=== PATIENT | female | born 1955 | race Caucasian/White ===

== ENCOUNTER 2018-09-17 06:44 | Inpatient (IN) ==
--- NOTE | 2018-09-17 07:57 | PROVIDER DOCUMENTATION ---
HPI-Respiratory General - General Chief Complaint: Shortness of Breath Stated Complaint: difficulty breathing Time Seen by Provider: 09/17/18 07:20 Source: patient Allergies/Adverse Reactions: Patient Allergies Allergy/AdvReac Type Severity Reaction Status Date / Time amoxicillin trihydrate * Allergy Intermediate RASH Verified 08/23/15 15:45 [From Augmentin] potassium clavulanate * Allergy Intermediate RASH Verified 08/23/15 15:45 [From Augmentin] nitrofurantoin Allergy ITCHING Verified 08/23/15 15:45 [From Macrobid] nitrofurantoin Allergy ITCHING Verified 08/23/15 15:45 macrocrystalline * [From Macrobid] oxybutynin Allergy rash in Verified 08/23/15 15:45 mouth Home Medications: Home Medication List Medication Instructions Recorded Confirmed Last Taken Type Citalopram [Celexa] 20 mg PO DAILY 09/16/13 09/17/18 05/14/15 History Lipase/Protease/Amylase [Creon] 48,000 units PO AC 01/28/15 09/17/18 05/14/15 History Alendronate [Fosamax] 70 mg PO Q7D 09/17/18 09/17/18 Unknown History Amitriptyline HCl 25 mg PO QHS 09/17/18 09/17/18 Unknown History Baclofen 10 mg PO Q8H PRN 09/17/18 09/17/18 Unknown History Fluticasone 50 Mcg Nasal [place] 2 spray INTRANASAL DAILY 09/17/18 09/17/18 Unknown History [Flonase] Gabapentin 400 mg PO BID 09/17/18 09/17/18 Unknown History Lipase/Protease/Amylase [Creon] 72,000 units PO TID CC 09/17/18 09/17/18 Unknown History Oxycodone HCl/Acetaminophen 5 - 325 mg PO Q12H PRN 09/17/18 09/17/18 Unknown History [Oxycodone-Acetaminophen 5-325] - History of Present Illness-Resp Nature of Presenting Problem: Presents to the with multiple vague complaints. Her primary complaint this morning is her SOB and difficulty breathing. She states that this has been going on for about 1 week and she has been in the ER multiple times for similar complaints. she is still ane very day smoker and has been trying to use her albuterol treatments every 3-4 hours but it is not helping. She states that she cannot even walk across the room without getting SOB. She denies any cough, fever or chills. She takes oxygen at home 3L [place] at night only but recently has been having to use her O2 all the time. She additionally has other vague complaints including chronic lower back pain and muscle spasms and states that she was also seen in the ER for her "bladder giving out" but she did not elaborate on this. Severity in ED: reports: moderate Onset/Duration: reports: 1 week ago Timing: reports: still present Cough Quality/Degree: reports: no cough Episode Frequency: chronic episodes Current Respiratory Medication Therapy: Initiated see nurses note, Initiated albuterol Modifying Factors: improves with: exertion Associated Symptoms: reports: shortness of breath. denies: fever/chills Similar Symptoms Previously?: Yes Recently seen or treated by another doctor?: Yes Review of Systems - Adult - REVIEW OF SYSTEMS - ADULT Constitutional: reports: no symptoms reported. denies: chills, fever Eyes: reports: no symptoms reported Ears, Nose, Mouth & Throat: reports: no symptoms reported Cardiovascular: reports: no symptoms reported Respiratory: reports: see HPI, dyspnea on exertion, shortness of breath Gastrointestinal: reports: no symptoms reported Genitourinary: reports: no symptoms reported Musculoskeletal: reports: back pain Integumentary: reports: no symptoms reported Neurological: reports: no symptoms reported Psychiatric: reports: no symptoms reported Endocrine: reports: no symptoms reported Hematologic/Lymphatic: reports: no symptoms reported Allergic/Immunologic: reports: no symptoms reported All Other Systems: Reviewed and Negative Past History - Adult - PAST MEDICAL HISTORY-ADULT Review of Records: reports: Old Records Reviewed, Nursing Assessment Review, Medications Reviewed Cardiovascular: reports: HTN Respiratory: reports: asthma, COPD Musculoskeletal: reports: chronic pain Endocrine/Immune: reports: thyroid disorder - PRIOR SURGERIES/PROCEDURES Surgical/Procedure History: reports: hernia repair, back/neck - IMMUNIZATION STATUS Childhood Immunizations: See Nurse Assessment Flu Vaccine: See Nurse Assessment Physical Exam-General - PHYSICAL EXAM-ADULT Initial Vital Signs Reviewed: Yes - CONSTITUTIONAL General Appearance: alert, no apparent distress, cachetic - EYES Eyes: PERRL/EOMI - HEAD, EARS, NOSE, MOUTH & THROAT HENMT: normocephalic/atraumatic - NECK Neck: non-tender, full range of motion - RESPIRATORY Respiratory: decreased breath sounds (moderate throughout), accessory muscle use (mild), wheezing (scant diffuse) - CARDIOVASCULAR Cardiovascular: normal peripheral pulses, regular rate, rhythm - GASTROINTESTINAL (ABDOMEN) Abdominal Exam: normal bowel sounds, non tender, soft - LYMPHATIC Lymphatic: no adenopathy - MUSCULOSKELETAL Back Exam: normal inspection, no CVA tenderness, no vertebral tenderness, kyphosis Extremity: normal inspection - SKIN Integumentary: warm/dry - NEUROLOGIC Neurologic: grossly normal - PSYCHIATRIC Psych/Mental Status: oriented x 3 Progress - PLAN OF CARE/RESULTS Progress/Plan/Lab Results: Laboratory Results - last 24 hr 09/17/18 08:23 Folate 13.9 Orders Category Date Time Status Admit - [facility] Routine AdmDCTranf 09/17/18 10:52 Active Activity - Up with Assistance ORDERED Care 09/17/18 10:52 Active Intake and Output-Strict ORDERED Care 09/17/18 10:52 Active Nursing- Assist w/ IS as order ORDERED Care 09/17/18 10:52 Active Saline Loc DIRECTED Care 09/17/18 10:52 Active Turn, Cough and Deep Breathe Q4HR.AWAKE Care 09/17/18 10:52 Active Vital Signs Order Q 4-HR ASSESS Care 09/17/18 10:52 Completed Z-Document. for Tele Applied ORDERED Care 09/17/18 10:52 Active CHEST-2 VIEWS [RAD] Stat Exams 09/17/18 08:00 Completed ABG [RESP] Routine Lab 09/17/18 08:16 Completed CBC WITH ELECTRONIC DIFF [HEME] Stat Lab 09/17/18 08:23 Completed COMPREHENSIVE METABOLIC PANEL [CHEM] Stat Lab 09/17/18 08:23 Completed PRO B-NATRIURETIC PEPTIDE Stat Lab 09/17/18 08:23 Completed UA NIMS W/REFLEX CULT PL [URINALYSIS] Stat Lab 09/17/18 08:35 Completed URINE CULTURE [RM] Routine Lab 09/17/18 09:[address] SCREEN [address] Stat Lab 09/17/18 08:17 Completed Albuterol 2.5MG/Ipratrop 0.5MG [Duoneb (A & A)] Med 09/17/18 08:00 Discontinued 9 ml INH NOW ONE Azithromycin 500 mg/Ns [Zithromax 500 mg/Ns] Med 09/17/18 10:30 Discontinued 500 mg in 250 ml IV Q24H Budesonide [Pulmicort] Med 09/17/18 08:00 Discontinued 0.5 mg INH NOW ONE CefTRIAXONE [Rocephin] 1 gm Med 09/17/18 10:00 Discontinued 0.9% Sodium Chloride Inj [Ns] 50 ml IV Q24H Hydroxyzine [Atarax] Med 09/17/18 09:06 Discontinued 25 mg PO NOW ONE Methylprednisolone Sod Succ [Solu-Medrol] Med 09/17/18 08:00 Discontinued 125 mg IV NOW ONE Potassium Chloride E.r. [Klor-Con] Med 09/17/18 09:07 Discontinued 60 meq PO NOW ONE Aerosol Treatments Routine Ot 09/17/18 08:01 Completed Aerosol Treatments Stat Ot 09/17/18 08:01 Completed Incentive Spirometer Q4HR.AWAKE Ot 09/17/18 13:00 Completed Incentive Spirometer Q4HR.AWAKE Ot 09/17/18 17:00 Completed Incentive Spirometer Q4HR.AWAKE Ot 09/17/18 21:00 Completed Incentive Spirometer Q4HR.AWAKE Ot 09/18/18 01:00 Completed Incentive Spirometer Q4HR.AWAKE Ot 09/18/18 05:00 Completed Incentive Spirometer Q4HR.AWAKE Ot 09/18/18 09:00 Completed Oxygen Device Routine Ot 09/17/18 10:52 Completed Peak Flow BID Oth 09/17/18 21:00 Completed Peak Flow BID Ot 09/18/18 09:00 Completed Telemetry [OM.EQ] Routine Oth 09/17/18 10:52 Active EKG [EKG] Routine Ther 09/17/18 Draft Transfer/Admit Order [TRANSFER] Routine Transfer 09/17/18 09:58 Completed Patient with frequent ER visits and poor lung sounds on exam. Given breathing treatments in the ED but would benefit for admission for COPD exacerbation. Spoke to Dr Verde who accepted patient for admission. Result Diagrams: 09/17/18 08:23 09/17/18 08:23 - EKG 1 Time of EKG reading by physician:: 07:24 EKG Read and Signed by:: Zabirna Rome EKG Interpretation (*Must complete 3 of following elements*): Abnormal Rate: 87 Rhythm: NSR QRS: other (artifact/baseline wander) ST Wave: non-specific ST changes Departure - Departure Date of Disposition Decision: 09/17/18 Time of Disposition Decision: 13:00 DIAGNOSIS: COPD, frequent exacerbations, Hypoxia Disposition: ADMITTED INPATIENT 09 Certified Medical Emergency: Emergent Condition: Fair - Critical Care Note This patient required my direct & personal management of CC.: Yes Total Time (mins): 35 Critical Care Statement: This patient required my direct personal management to treat or rule out processes, the absence of which, could potentiallly result in sudden, clinically significant life or limb threatening deterioration. Attestation - Physician/ FRANKIE Attestation Patient care was provided by Advanced Practice Provider:: No The physician spent face to face time with patient:: Yes Advanced Practice Provider documentation review:: Supervising physician onsite and consulted in the evaluation and care of this patient. The physician did have a face to face encounter with the patient.
[2018-09-17] MEDS ORDERED: PULMICORT INH ONE (08:00)
[2018-09-17] MEDS ORDERED: SOLU-MEDROL IV ONE (08:00)
[2018-09-17] MEDS ORDERED: DUONEB (A & A) INH ONE (08:00)
[2018-09-17 08:30] LABS: BE 9.3 mmoll (-3.0-3.0); BLOOD TYPE ARTERIAL; METHB 2.7 % (0.0-1.5); O2(CT) 15.2 mL/dL (15.0-23.0); PO2(98.6) 82 mmHg (60-100); SAMPLE BLOOD; SAO2 96.5 % (95.0-100.0); pH(98.6) 7.43 (7.35-7.45)
[2018-09-17 08:35] LABS: BASO# 0.02 X1000 (0.0-0.2); BASO% 0.3 % (0.0-0.8); HEMATOCRIT 40.6 % (37.0-47.0); HEMOGLOBIN 12.9 g/dL (12.0-16.0); IMM GRAN# 0.01 X1000 (0.0-0.04); IMM GRAN% 0.2 % (0.0-0.5); LYMPH# 1.16 X1000 (1.2-3.4); LYMPH% 18.1 % (20.5-51.1); MCH 30.9 PG (27-31); MCHC 31.8 g/dL (33-37); MCV 97.1 FL (81-99); MONO# 0.29 X1000 (0.11-0.59); MONO% 4.5 % (1.7-9.3); MPV 9.3 FL (7.4-10.4); NEUT# 4.94 X1000 (1.4-6.5); NEUT% 76.9 % (42.2-75.2); PLT 304 X1000 (130-400); RBC 4.18 XMIL (4.2-5.4); RDW 17.7 % (11.5-14.5); WBC 6.42 X1000 (4.8-10.8)
[2018-09-17 08:51] LABS: MODALITY CANNULA; O2HB 89.8 % (95.0-99.0); PCO2(98.6) 53 mmHg (35-45)
[2018-09-17 08:52] LABS: ALLEN TEST NO
[2018-09-17 08:54] LABS: URINE SOURCE CLEAN CATCH
--- NOTE | 2018-09-17 08:57 | Diag Imaging Result Doc PS360 ---
EXAM: CHEST-2 VIEWS HISTORY: COPD TECHNIQUE: PA and Lateral chest x-ray COMPARISON: 08/23/2015 FINDINGS: The cardiomediastinal silhouette is within normal limits. Significant progression of the pulmonary emphysema when compared with prior study. Scattered pulmonary calcifications most compatible with prior granulomatous disease are unchanged. The pulmonary vasculature is not congested. No infiltrate, effusion, or pneumothorax is appreciated. New posterior spinal fusion rods are noted in the right the lumbar spine. Unchanged screw plate fixation lower cervical spine. IMPRESSION: Interval progression of pulmonary emphysema. Electronically signed by Yuridia Bustillo 09/17/2018 8:55 AM
[2018-09-17 09:02] LABS: AGAP 14; ALBUMIN 4.5 g/dL (3.5-5.0); ALKALINE PHOSPHATASE 74 U/L (32-104); BUN 3 mg/dL (8-22); CALCIUM 8.7 mg/dL (8.8-10.2); CHLORIDE 97 mmol/L (98-107); COSMO 285; CREATININE 0.5 mg/dL (0.5-0.9); ESTIMATED GFR > 60; GLUCOSE 121 mg/dL (70-104); GOT 33 U/L (10-30); GPT 18 U/L (10-36); POTASSIUM 2.7 mmol/L (3.5-5.1); SODIUM 144 mmol/L (136-145); TCO2 34 mmol/L (25-35); TOTAL BILIRUBIN < 0.15 mg/dL (0.20-1.00); TOTAL PROTEIN 7.9 g/dL (6.3-8.3)
[2018-09-17] MEDS ORDERED: ATARAX PO ONE (09:06)
[2018-09-17] MEDS ORDERED: KLOR-CON PO ONE (09:07)
[2018-09-17 09:16] LABS: BILIRUBIN URINE 1+ (NEGATIVE); BLOOD URINE NEGATIVE (NEGATIVE); CLARITY CLEAR (CLEAR); COLOR AMBER; GLUCOSE URINE NEGATIVE (NEGATIVE); KETONE URINE TRACE mg/dL (NEGATIVE); LEUKOCYTES URINE 1+ (NEGATIVE); NITRITE URINE POSITIVE (NEGATIVE); PROTEIN URINE 2+(100 mg/dL) mg/dL (NEGATIVE); SP GRAVITY URINE 1.005; UROBILINOGEN URINE 4 mg/dL
--- NOTE | 2018-09-17 09:17 | EKG Report ---
Test Performed on : 09/17/2018 07:18:57 AM Test Reason : ER Blood Pressure : / mmHG Vent. Rate : 087 BPM Atrial Rate : 087 BPM P-R Int : 096 ms QRS Dur : 086 ms QT Int : 386 ms P-R-T Axes : 072 069 062 degrees QTc Int : 464 ms Sinus rhythm. with short OH Right atrial enlargement Nonspecific ST abnormality Abnormal ECG When compared with ECG of 23-AUG-2015 16:05, OH interval has decreased Nonspecific T wave abnormality no longer evident in Inferior leads Unconfirmed Result
[2018-09-17 09:18] LABS: URINE BACTERIA 3+ /HFP; URINE EPITHELIAL CELLS <10 /HPF (<10)
[2018-09-17 09:41] LABS: UR AMPHETAMINES QUAL NONE DETECTED (NONE DETECT); UR BARBITUATES QUAL NONE DETECTED (NONE DETECT); UR BENZODIAZEPIN QUAL NONE DETECTED (NONE DETECT); UR CANNABINOIDS QUAL NONE DETECTED (NONE DETECT); UR COCAINE QUAL NONE DETECTED (NONE DETECT); UR METHADONE QUAL NONE DETECTED (NONE DETECT); UR METHAMPHETAMINE QUAL NONE DETECTED (NONE DETECT); UR OPIATES QUAL NONE DETECTED (NONE DETECT); UR OXYCODONE QUAL PRESUMPTIVE POSITIVE (NONE DETECT); UR PCP QUAL NONE DETECTED (NONE DETECT); UR PROPOXYPHENE QUAL NONE DETECTED (NONE DETECT); UR TCA QUAL PRESUMPTIVE POSITIVE (NONE DETECT)
[2018-09-17] MEDS ORDERED: ROCEPHIN 1 GM in NS 50 ML IV SCH (10:00)
[2018-09-17] MEDS ORDERED: ZITHROMAX 500 MG/NS 500 MG/250 ML IVPB IV SCH ×2 (10:30→12:34)
[2018-09-17] MEDS ORDERED: XOPENEX NEB INH PRN (11:18)
[2018-09-17] MEDS ORDERED: TYLENOL PO PRN (11:18)
[2018-09-17] MEDS ORDERED: XOPENEX NEB INH SCH (11:30)
[2018-09-17] MEDS ORDERED: XOPENEX NEB ONE (11:31)
[2018-09-17] MEDS ORDERED: NS 1,000 ML IV ONE (11:41)
[2018-09-17] MEDS ORDERED: NICODERM PATCH TD SCH (11:45)
[2018-09-17] MEDS ORDERED: LOVENOX SUBQ SCH (12:00)
[2018-09-17 12:06] LABS: TSH 0.21 uIUmL (0.27-4.20)
[2018-09-17] MEDS ORDERED: ATARAX PO PRN (12:09)
--- NOTE | 2018-09-17 12:17 | HISTORY AND PHYSICAL ---
PRIMARY CARE PHYSICIAN: Dr. Rodríguez Verde CHIEF COMPLAINT: Dysuria and shortness of breath. HISTORY OF PRESENT ILLNESS: Ms. Mcnulty is a 63-year-old female with a history of emphysema requiring nocturnal oxygen, nicotine dependence, interstitial cystitis, bipolar disorder and chronic pain, who presents with progressive dysuria and bladder pain. Symptoms have been going on for more than a week and have been progressively worse. When she urinates, she has a "tightening." She denies any hematuria by gross visualization. She denies nausea, vomiting but does report some chills. She has also been having progressively worsening shortness of breath with cough. This has been made worse with exertion. She has had mainly a wet cough and nonproductive. She denies any overt chest pain, lower extremity edema or orthopnea. When she arrived to the ER, she had labs and diagnostics done. An ABG revealed a compensated respiratory acidosis with mild hypoxemia and mild elevation in methemoglobin. She was also noted to be mildly hypokalemic with evidence of urinary tract infection. As such, she is going to be admitted for COPD exacerbation as well as chronic and recurrent UTI. Of note, she was in the ER 2 days ago essentially for the same and was noted to have E. coli growing in her urine. PAST MEDICAL HISTORY: 1. Severe emphysema requiring nocturnal O2. 2. Interstitial cystitis. 3. Chronic pain related to neck and back pain. 4. Nicotine dependence. 5. Chronic pancreatitis. 6. Hypertension. 7. Gastroesophageal reflux disease. PAST SURGICAL HISTORY: She has had a hernia repair and neck surgery. SOCIAL HISTORY: She smokes a pack a day. Denies drug or alcohol use. FAMILY HISTORY: Noncontributory. HOME MEDICATIONS: Unknown at this time. List is being compiled by the nursing staff. REVIEW OF SYSTEMS: A 14-point review of systems was obtained and found to be negative with the exception of the HPI. ALLERGIES: Augmentin, Macrobid and oxybutynin. PHYSICAL EXAMINATION: VITAL SIGNS: Blood pressure is 142/81, heart rate 102, respiratory rate is 14, O2 saturation is 95% on nasal cannula 3 L. Temperature is 98.2. GENERAL: This is a chronically ill and disheveled appearing, bordering on cachectic, 63-year-old female lying in hospital bed in no acute distress. NEUROLOGICAL: She is awake and alert, follows commands without focal deficits. HEENT: Head is atraumatic and normocephalic. Pupils are equal, round and reactive to light. Oral mucosa is a bit dry. NECK: Trachea is midline. There is no JVD. CHEST: Diminished at the bases with mild wheezing in the expiratory and inspiratory phase. GASTROINTESTINAL: Soft, nondistended and nontender. Bowel sounds are hypoactive. EXTREMITIES: No edema. Pulses 1+ bilaterally. DIAGNOSTIC DATA: Chest x-ray shows interval progression of pulmonary emphysema. WBC is 6.42, hemoglobin 12.9, hematocrit 40.6, platelet count 304. ABG on nasal cannula shows pH of 7.43, CO2 of 53, O2 is 82, bicarb 32, oxyhemoglobin 89.8. Sodium is 144, potassium 2.7, chloride 97, CO2 is 34, anion gap is 14, BUN is 3, creatinine 0.5, glucose 121, calcium 8.7, AST is 33, alkaline phosphatase is 74, protein 7.9. UA shows 3+ bacteria with 10 to 20 WBCs and positive nitrites. Oxycodone is positive, and tricyclics are positive on the tox screen. ASSESSMENT AND PLAN: 1. Urinary tract infection. Likely E. coli, non ESBL, as she was here 2 days ago, and cultures did return positive. It is sensitive to Rocephin, so we will continue IV Rocephin and await culture data again. 2. Chronic obstructive pulmonary disease exacerbation. We will add IV steroids, add azithromycin to her antibiotic regimen. Breathing treatments. Aggressive pulmonary toilet. Recheck a chest x-ray and ABG in the morning. 3. Hypokalemia. We will check a magnesium and replace and follow electrolytes daily. 4. Chronic pain. We will need to get a list of her active medications and be judicious given her COPD exacerbation. 5. Nicotine dependence. We have advised the patient to quit smoking. Write a nicotine patch. Continue cessation education. 6. Acute on chronic hypercapnic and hypoxic respiratory failure. Please see number 2. We will continue pulmonary toilet, breathing treatments and monitor her progression. 7. DVT prophylaxis with Lovenox. Further recommendations to follow. Dictated by NASREEN Leon for Rodríguez Verde MD cc: NASREEN Leon MD
[2018-09-17] MEDS ORDERED: PERCOCET-5 PO PRN (13:09)
[2018-09-17] MEDS ORDERED: LIORESAL PO PRN (13:09)
[2018-09-17] MEDS: XOPENEX NEB INH SCH ×2 (14:51→19:29)
[2018-09-17] MEDS ORDERED: SOLU-MEDROL IV SCH (16:00)
[2018-09-17] MEDS ORDERED: CREON PO SCH ×2 (16:00→17:00)
[2018-09-17 16:08] VITALS: BP 134/62
--- NOTE | 2018-09-17 19:26 | HISTORY AND PHYSICAL ---
ADDENDUM: Patient seen and examined by myself. Full note was dictated and discussed with my nurse practitioner. Patient complains of dysuria and shortness of breath. She is wheezing on exam. We will admit her to the hospital and treat in the usual fashion for a COPD exacerbation. We will not use Urogesic Blue as the daughter told me last week that Ms. Mcnulty was in [facility] due to an overdose of Urogesic Blue. She stated that she had taken 40 or 50 of them. We will try Hytrin for her bladder spasms and we will follow. cc: Rodríguez Verde MD
[2018-09-17] MEDS ORDERED: HYTRIN PO SCH (21:00)
[2018-09-17] MEDS ORDERED: ELAVIL PO SCH (21:00)
[2018-09-17] MEDS ORDERED: MELATONIN PO SCH (21:00)
[2018-09-17] MEDS ORDERED: NEURONTIN PO SCH (21:00)
[2018-09-18] MEDS ORDERED: FOSAMAX PO SCH (07:00)
[2018-09-18] MEDS ORDERED: FLONASE NAS SCH (09:00)
[2018-09-18] MEDS ORDERED: ZITHROMAX PO SCH (09:00)
[2018-09-18] MEDS ORDERED: CELEXA PO SCH (09:00)
--- NOTE | 2018-09-19 05:55 | DISCHARGE SUMMARY ---
ADMISSION DATE: 09/17/2018 DISCHARGE DATE: 09/17/2018 HOSPITAL COURSE: The patient left AMA. She unfortunately created quite as scene screaming, yelling and wailing in the hospital, asking for Urogesic Blue. We certainly did not do this as the daughter had informed me earlier, a few days ago, when the was admitted that Ms. Mcnulty had just recently been in [facility] due to overdosing on Urogesic Blue. Interestingly, once she was told that she was not going to get Urogesic Blue she was able to sit down, she was quiet, and her very loud vocalizations stopped until the daughter arrived and then all these vocalizations reoccurred again. As noted the patient left AMA. She stated that she could not breathe although interestingly her vocalizations could be heard up and down the hallway without any difficulty, which certainly contradicts her assessment that she could not breathe. Due to this as well as recent events Ms. Mcnulty will be subsequently dismissed from our practice. cc: Rodríguez Verde MD
== END 2018-09-17 20:06 | disposition left against medical advice (07) | DRG 191 ==
LOC: P.ED 06:44 → P.MEDSURG 10:07
PROVIDERS: ADMIT Family Medicine
CPT/HCPCS: 71020; 71046; 74019; 74020; 80053; 80104; 80301; 80305; 81001; 82607; 82746; 82805; 83735; 83880; 84443; 85025; 87077; 87088; 87186; 93005; 94640; 94761; 94799; 99284; A9270; G0431; G0434; G0477; J0456; J0696; J1650; J2930; J7030

== ENCOUNTER 2018-09-19 20:16 | Inpatient (IN) ==
[2018-09-19 21:42] LABS: UR AMPHETAMINES QUAL NONE DETECTED (NONE DETECT); UR BARBITUATES QUAL NONE DETECTED (NONE DETECT); UR BENZODIAZEPIN QUAL NONE DETECTED (NONE DETECT); UR CANNABINOIDS QUAL NONE DETECTED (NONE DETECT); UR COCAINE QUAL NONE DETECTED (NONE DETECT); UR METHADONE QUAL NONE DETECTED (NONE DETECT); UR METHAMPHETAMINE QUAL NONE DETECTED (NONE DETECT); UR OPIATES QUAL NONE DETECTED (NONE DETECT); UR OXYCODONE QUAL NONE DETECTED (NONE DETECT); UR PCP QUAL NONE DETECTED (NONE DETECT); UR PROPOXYPHENE QUAL NONE DETECTED (NONE DETECT); UR TCA QUAL PRESUMPTIVE POSITIVE (NONE DETECT)
[2018-09-19 22:13] LABS: BASO# 0.02 X1000 (0.0-0.2); BASO% 0.1 % (0.0-0.8); EOS# 0.05 X1000 (0.0-0.7); EOS% 0.3 % (0.0-10.0); HEMOGLOBIN 14.4 g/dL (12.0-16.0); IMM GRAN# 0.05 X1000 (0.0-0.04); IMM GRAN% 0.3 % (0.0-0.5); LYMPH# 2.12 X1000 (1.2-3.4); LYMPH% 11.4 % (20.5-51.1); MCH 30.9 PG (27-31); MCV 96.6 FL (81-99); MONO% 5.4 % (1.7-9.3); NEUT# 15.32 X1000 (1.4-6.5); NEUT% 82.5 % (42.2-75.2); PLT 345 X1000 (130-400); RBC 4.66 XMIL (4.2-5.4); RDW 17.9 % (11.5-14.5); WBC 18.56 X1000 (4.8-10.8)
[2018-09-19 22:35] LABS: AGAP 18; ALBUMIN 4.6 g/dL (3.5-5.0); ALKALINE PHOSPHATASE 91 U/L (32-104); BUN 7 mg/dL (8-22); CALCIUM 9.7 mg/dL (8.8-10.2); CHLORIDE 97 mmol/L (98-107); COSMO 282; CREATININE 0.5 mg/dL (0.5-0.9); ESTIMATED GFR > 60; GLUCOSE 110 mg/dL (70-104); GOT 37 U/L (10-30); GPT 22 U/L (10-36); POTASSIUM 3.3 mmol/L (3.5-5.1); SODIUM 142 mmol/L (136-145); TCO2 27 mmol/L (25-35); TOTAL BILIRUBIN < 0.15 mg/dL (0.20-1.00); TOTAL PROTEIN 8.5 g/dL (6.3-8.3)
[2018-09-19] MEDS ORDERED: MORPHINE ONE (23:36)
[2018-09-19] MEDS ORDERED: MORPHINE IV ONE (23:39)
[2018-09-20] LABS: BILIRUBIN URINE NEGATIVE (NEGATIVE); BLOOD URINE TRACE (NEGATIVE); CLARITY CLEAR (CLEAR); COLOR YELLOW; GLUCOSE URINE NEGATIVE (NEGATIVE); KETONE URINE 1+(Small) mg/dL (NEGATIVE); LEUKOCYTES URINE NEGATIVE (NEGATIVE); NITRITE URINE NEGATIVE (NEGATIVE); PROTEIN URINE 1+(30 mg/dL) mg/dL (NEGATIVE); SP GRAVITY URINE 1.015; UROBILINOGEN URINE NORMAL
--- NOTE | 2018-09-20 00:04 | PROVIDER DOCUMENTATION ---
This chart was entered by Kimberlyn Donnelly Scribe, acting as scribe for Andrew Rosales CRNP. [id number] Abuse/Overdose - General Chief Complaint: Withdrawals Stated Complaint: OPIOIDS WITHDRAWL Time Seen by Provider: 09/19/18 21:00 Source: patient, family Allergies/Adverse Reactions: Allergies Allergy/AdvReac Type Severity Reaction Status Date / Time amoxicillin trihydrate * Allergy Intermediate RASH Verified 08/23/15 15:45 [From Augmentin] potassium clavulanate * Allergy Intermediate RASH Verified 08/23/15 15:45 [From Augmentin] nitrofurantoin Allergy ITCHING Verified 08/23/15 15:45 [From Macrobid] nitrofurantoin Allergy ITCHING Verified 08/23/15 15:45 macrocrystalline * [From Macrobid] oxybutynin Allergy rash in Verified 08/23/15 15:45 mouth Home Medications: Home Medication List Medication Instructions Recorded Confirmed Last Taken Type Citalopram [Celexa] 20 mg PO DAILY 09/16/13 09/17/18 05/14/15 History Lipase/Protease/Amylase [Creon] 48,000 units PO AC 01/28/15 09/17/18 05/14/15 History Alendronate [Fosamax] 70 mg PO Q7D 09/17/18 09/17/18 Unknown History Amitriptyline HCl 25 mg PO QHS 09/17/18 09/17/18 Unknown History Baclofen 10 mg PO Q8H PRN 09/17/18 09/17/18 Unknown History Fluticasone 50 Mcg Nasal [place] 2 spray INTRANASAL DAILY 09/17/18 09/17/18 Unknown History [Flonase] Gabapentin 400 mg PO BID 09/17/18 09/17/18 Unknown History Lipase/Protease/Amylase [Creon] 72,000 units PO TID CC 09/17/18 09/17/18 Unknown History Oxycodone HCl/Acetaminophen 5 - 325 mg PO Q12H PRN 09/17/18 09/17/18 Unknown History [Oxycodone-Acetaminophen 5-325] - History of Present Illness-Drug/Alcohol Nature of Presenting Problem: pt is a 63 yr old female presenting with family, pt reports she is a pain clinic pt and has been overtaking her prescribed Percocet, xanaflex and norflex. pt has hx of chronic bladder pain and reports she has been taking anything to attempt to control pain. pt also reports over use of Benadryl, AZO, Cystex and melatonin. pt also reports depression, anxiety. pt next appointment with pain clinic is 10/04 but she reports she is already out of prescribed medications and fears she has been fired for failing drug screen. pt reports she has been out of muscle relaxers and pain medication x 3 days. SHe also reports that she has been having increased SOB. This episode of drinking or use began:: gradual Psychiatric Complaints: reports: anxiety, depressed, insomnia, other (chronic pain). denies: suicidal ideation Associated Symptoms: reports: anxiety, genitourinary problems (chronic bladder pain), headaches, muscle aches Any injuries associated with this episode of intoxication?: No Similar Symptoms Previously?: Yes Recently seen or treated by another doctor?: Yes - Substance Abuse Substance Use: reports: benzodiazepines, opiates - Detox/Hospitalizations Previous detox/rehab admissions?: No Currently enrolled in a Methadone Program?: No Review of Systems - Adult - REVIEW OF SYSTEMS - ADULT Constitutional: reports: fatique, weight loss. denies: fever Eyes: reports: no symptoms reported Ears, Nose, Mouth & Throat: reports: no symptoms reported Cardiovascular: reports: no symptoms reported Respiratory: reports: cough, shortness of breath Gastrointestinal: reports: abdominal pain, nausea. denies: vomiting Genitourinary: reports: frequent UTI's, other (chronic bladder pain) Musculoskeletal: reports: back pain (chronic), muscle aches Integumentary: reports: no symptoms reported Neurological: reports: headache/migraines. denies: dizziness/vertigo, syncope Psychiatric: reports: anxiety, alcohol/drug dependence, depression, insomnia, panic attacks. denies: suicidal thoughts Endocrine: reports: no symptoms reported Hematologic/Lymphatic: reports: no symptoms reported Allergic/Immunologic: reports: no symptoms reported All Other Systems: Reviewed and Negative Past History - Adult - PAST MEDICAL HISTORY-ADULT Review of Records: reports: Old Records Reviewed, Nursing Assessment Review, Medications Reviewed, Social history reviewed & non-contributory. Major Childhood Illnesses: reports: denies history Cardiovascular: reports: HTN Respiratory: reports: asthma, COPD Gastrointestinal: reports: denies history Obstetrical/Gynecological: reports: denies history Genitourinary: reports: other (cystic bladder) Musculoskeletal: reports: chronic pain Neurological: reports: denies history Endocrine/Immune: reports: thyroid disorder Other Conditions: reports: denies history - PRIOR SURGERIES/PROCEDURES Surgical/Procedure History: reports: hernia repair, back/neck - IMMUNIZATION STATUS Childhood Immunizations: See Nurse Assessment Flu Vaccine: See Nurse Assessment - FAMILY HISTORY Family History: reviewed, not pertinent - SOCIAL HISTORY Smoking: cigarettes Substance Use: benzodiazepines, opiates Living Situation: family Physical Exam-General - PHYSICAL EXAM-ADULT Initial Vital Signs Reviewed: Yes - CONSTITUTIONAL General Appearance: alert, no apparent distress, thin, anxious - EYES Eyes: PERRL/EOMI - HEAD, EARS, NOSE, MOUTH & THROAT HENMT: normocephalic/atraumatic, moist mucous membranes, normal ENT inspection - NECK Neck: non-tender, full range of motion, supple, normal inspection - RESPIRATORY Respiratory: chest non-tender, accessory muscle use, rhonchi, increased rate - CARDIOVASCULAR Cardiovascular: normal peripheral pulses, regular rate, rhythm, no edema - GASTROINTESTINAL (ABDOMEN) Abdominal Exam: normal bowel sounds, non tender, soft - LYMPHATIC Lymphatic: no adenopathy - MUSCULOSKELETAL Back Exam: normal inspection, no CVA tenderness, no vertebral tenderness Extremity: normal range of motion, non-tender, normal gait, normal inspection - SKIN Integumentary: normal color, normal turgor, warm/dry - NEUROLOGIC Neurologic: grossly normal, no motor/sensory deficits - PSYCHIATRIC Psych/Mental Status: anxious Progress - PLAN OF CARE/RESULTS Progress/Plan/Lab Results: Vital Signs - 8 hr 09/19/18 20:24 09/19/18 21:08 09/19/18 22:13 Temperature 98.3 F Pulse Rate 102 H 93 H 95 H Respiratory Rate 18 23 18 Blood Pressure 154/87 116/77 164/106 O2 Sat by Pulse Oximetry 90 L 93 L 09/19/18 23:16 Temperature Pulse Rate 77 Respiratory Rate 18 Blood Pressure 136/73 O2 Sat by Pulse Oximetry 97 Laboratory Results - last 24 hr 09/19/18 09/19/18 09/19/18 20:54 20:54 20:59 WBC 18.56 H RBC 4.66 Hgb 14.4 Hct 45.0 MCV 96.6 MCH 30.9 MCHC 32.0 L RDW Std Deviation 17.9 H Plt Count 345 MPV 10.0 Immature Gran % (Auto) 0.3 Neut % (Auto) 82.5 H Lymph % (Auto) 11.4 L Ida % (Auto) 5.4 Eos % (Auto) 0.3 Baso % (Auto) 0.1 Immature Gran # (Auto) 0.05 H Neut # (Auto) 15.32 H Lymph # (Auto) 2.12 Ida # (Auto) 1.00 H Eos # (Auto) 0.05 Baso # (Auto) 0.02 Sodium 142 Potassium 3.3 L Chloride 97 L Carbon Dioxide 27 Anion Gap 18 BUN 7 L Creatinine 0.5 Estimated GFR/1.73 m2 > 60 BUN/Creatinine Ratio 14 Glucose 110 H Calculated Osmolality 282 Calcium 9.7 Total Bilirubin < 0.15 L AST 37 H ALT 22 Alkaline Phosphatase 91 Total Protein 8.5 H Albumin 4.6 Globulin 4.0 Albumin/Globulin Ratio 1.0 Urine Color Urine Clarity Urine pH Ur Specific [place] Urine Protein Urine Ketones Urine Blood Urine Nitrite Urine Bilirubin Urine Urobilinogen Urine WBC Urine Glucose Urine Opiates Screen NONE DETECTED Ur Oxycodone Screen NONE DETECTED Urine Methadone Screen NONE DETECTED U Propoxyphene Qual NONE DETECTED Ur Barbituates Screen NONE DETECTED Ur Tricyclics Screen PRESUMPTIVE POSITIVE A Ur Phencyclidine Scrn NONE DETECTED Ur Amphetamines Screen NONE DETECTED U Methamphetamines Scrn NONE DETECTED U Benzodiazepines Scrn NONE DETECTED Urine Cocaine Screen NONE DETECTED U Cannabinoids Screen NONE DETECTED 09/19/18 20:59 WBC RBC Hgb Hct MCV MCH MCHC RDW Std Deviation Plt Count MPV Immature Gran % (Auto) Neut % (Auto) Lymph % (Auto) Ida % (Auto) Eos % (Auto) Baso % (Auto) Immature Gran # (Auto) Neut # (Auto) Lymph # (Auto) Ida # (Auto) Eos # (Auto) Baso # (Auto) Sodium Potassium Chloride Carbon Dioxide Anion Gap BUN Creatinine Estimated GFR/1.73 m2 BUN/Creatinine Ratio Glucose Calculated Osmolality Calcium Total Bilirubin AST ALT Alkaline Phosphatase Total Protein Albumin Globulin Albumin/Globulin Ratio Urine Color YELLOW Urine Clarity CLEAR Urine pH 5.0 Ur Specific [place] 1.015 Urine Protein 1+(30 mg/dL) A Urine Ketones 1+(Small) A Urine Blood TRACE Urine Nitrite NEGATIVE Urine Bilirubin NEGATIVE Urine Urobilinogen NORMAL Urine WBC NEGATIVE Urine Glucose NEGATIVE Urine Opiates Screen Ur Oxycodone Screen Urine Methadone Screen U Propoxyphene Qual Ur Barbituates Screen Ur Tricyclics Screen Ur Phencyclidine Scrn Ur Amphetamines Screen U Methamphetamines Scrn U Benzodiazepines Scrn Urine Cocaine Screen U Cannabinoids Screen Orders Category Date Time Status CHEST-1 VIEW [RAD] Stat Exams 09/19/18 23:02 Taken CBC WITH ELECTRONIC DIFF [HEME] Stat Lab 09/19/18 20:54 Completed CMP [COMPREHENSIVE METABOLIC PANEL] [CHEM] Stat Lab 09/19/18 20:[address] W/POSS RFLX CULT [URINALYSIS] Stat Lab 09/19/18 20:59 Results URINE DRUG SCREEN [address] Stat Lab 09/19/18 20:59 [address]UG S[address]EN [address] Stat Lab 09/19/18 21:18 Ordered Morphine Med 09/19/18 23:36 Discontinued 4 mg .ROUTE .STK-MED ONE Morphine Med 09/19/18 23:39 Discontinued 4 mg IV NOW ONE Result Diagrams: 09/19/18 20:54 09/19/18 20:54 - CONSULTS/PCP/HOSPITALIST Notification #1 *Consult/PCP/Hospitalist*: Ammon Time Discussed: 00:01 Consult Disposition: Admit Departure - Departure Date of Disposition Decision: 09/20/18 Time of Disposition Decision: 00:01 DIAGNOSIS: COPD exacerbation, Opioid dependence with withdrawal Disposition: ADMITTED INPATIENT 09 Certified Medical Emergency: Emergent Condition: Stable Referrals and Follow-Ups: Rodríguez Verde MD [Primary Care Provider] - - Critical Care Note This patient required my direct & personal management of CC.: No Attestation - Physician/ FRANKIE Attestation Patient care was provided by Advanced Practice Provider:: Yes Advanced Practice Provider:: Andrew Rosales Advanced Practice Provider documentation review:: The Mid-level provider documentation, treatment plan and medical decision making was reviewed by the physician who agrees with all treatment and medical decision making by the [facility]. The physician spent face to face time with patient:: No Advanced Practice Provider documentation review:: Supervising physician onsite and consulted in the evaluation and care of this patient. The physician did not have a face to face encounter with the patient. This chart was documented by the indicated scribe, (Kimberlyn Donnelly Scribe) and accurately reflects the services I performed and decisions made by me, Andrew Rosales CRNP, as attested by the provider's signature.
[2018-09-20 00:08] LABS: URINE BACTERIA 2+ /HFP; URINE EPITHELIAL CELLS <10 /HPF (<10); URINE RBC <10 /HPF (<10); URINE SOURCE CATH; URINE WBC <10 /HPF (<10)
[2018-09-20] MEDS ORDERED: MOTRIN PO PRN (02:00)
[2018-09-20] MEDS ORDERED: ROBAXIN PO PRN (02:00)
[2018-09-20] MEDS ORDERED: NICODERM PATCH TD ONE (02:25)
[2018-09-20] MEDS: DUONEB (A & A) INH SCH ×2 (02:31→07:30)
[2018-09-20] MEDS: ATARAX PO PRN ×2 (02:42→08:16)
[2018-09-20] MEDS ORDERED: PNEUMOVAX 23 IM ONE (03:23)
[2018-09-20] MEDS ORDERED: LIORESAL PO PRN (06:37)
--- NOTE | 2018-09-20 07:53 | Diag Imaging Result Doc PS360 ---
CHEST-1 VIEW - 09/19/2018 INDICATION: cough COMPARISON: 09/17/2018 FINDINGS: Stable hyperexpanded lungs compatible with COPD. No focal infiltrates, pneumothorax, or pleural effusion. Heart size is normal. IMPRESSION: COPD. Electronically signed by Kanu Meeks 09/20/2018 7:50 AM
[2018-09-20] MEDS ORDERED: PERCOCET-5 PO ONE (08:13)
[2018-09-20] MEDS ORDERED: CELEXA PO SCH (09:00)
[2018-09-20 11:58] VITALS: BP 109/91
--- NOTE | 2018-09-20 18:21 | HISTORY AND PHYSICAL ---
CHIEF COMPLAINT: Opioid withdrawals. HISTORY OF PRESENT ILLNESS: Ms. Mcnulty is a 63-year-old female well known to our service. She was actually here yesterday morning. She was admitted for UTI and COPD exacerbation, and yesterday left against medical advice and was quite angry and agitated. She returned yesterday evening for opioid withdrawals and bladder pain. She consistently abuses any type of medication she can for relief of bladder pain. She uses Percocet, Zanaflex, Norflex, Benadryl, Azo, and Cystex in large amounts to try to relieve the pain, and she ran out of these medications and came to the ER for withdrawals. She has been anxious and shaky. Labs were done yesterday evening in the ER. She was noted to have mild leukocytosis. Otherwise unremarkable. This morning she is complaining of bladder pain, but no other real acute abnormalities. We did explain to her that she will need to follow up with Dr. Valderrama regarding her bladder pain, and that she is stable for discharge from a medical standpoint. She is actually quite adamant about going back home. When she was wheeled down to the patient discharge area this morning, she did complain of some shortness of breath, and she was found to have an O2 saturation of 84%. She does report that she is supposed to be on continuous oxygen but only has nocturnal oxygen. We were able to set her up with continuous portable O2, and her oxygen saturations have increased to normal levels, 94%, and she is now stable for discharge home. HOME MEDICATIONS/DISCHARGE MEDICATIONS: 1. Amitriptyline 25 mg at bedtime. 2. Baclofen 10 mg p.o. every 8 hours. 3. Celexa 20 mg daily. 4. Creon as directed. 5. Fluticasone nasal spray, 2 puffs in both nares daily. 6. Fosamax 70 mg as directed. 7. Neurontin 400 mg b.i.d. 8. Oxybutynin 15 mg daily. ALLERGIES: Augmentin, Macrobid, oxybutynin. REVIEW OF SYSTEMS: A 14-point review of systems was obtained and found to be negative with the exception of the HPI. PHYSICAL EXAMINATION: VITAL SIGNS: Blood pressure is 153/98, heart rate 90, respiratory rate 20, O2 saturation 100% on nasal cannula. Temperature is 97.9. GENERAL: Chronically ill, frail, disheveled-appearing 63-year-old female lying in the hospital bed in no acute distress. NEUROLOGIC: She is awake. She is oriented. Follows commands. HEENT: Head is atraumatic and normocephalic. Pupils are equal, round and reactive to light. Oral mucosa is moist. NECK: Trachea is midline. There is no JVD. CHEST: Diminished at the bases but clear to auscultation. CV: Regular rate and rhythm. S1 and S2 is noted. There are no murmurs. GI: Soft, nondistended, nontender. Bowel sounds active. EXTREMITIES: No edema. Pulses 1+ bilaterally. DIAGNOSTIC DATA: Chest x-ray: COPD. Nothing acute. WBCs 18.56, hemoglobin 14.4, hematocrit 45, platelet count 345. Sodium 142, potassium 3.3, chloride 97. CO2 is 27, anion gap 18, BUN 7, creatinine 0.5, glucose 110. Bilirubin less than 0.15, AST 37, ALT 22, alkaline phosphatase 91, protein 8.5, albumin 4.6. UA shows 2+ bacteria. Toxicology is positive for tricyclics. ASSESSMENT/PLAN: 1. Opioid withdrawal: The patient is clinically stable for discharge. There is no evidence of seizure or other major withdrawal symptoms. Will have her follow up with her pain clinic. We have advised her against the abuse of any prescription medications and that she should seek long-term help if needed. 2. Interstitial cystitis: Will have her continue her home medications and follow up with Dr. Valderrama. 3. Chronic obstructive pulmonary disease: Stable. We have added home O2, which she will go home with. 4. Nicotine dependence: We advised the patient against the use of cigarettes. Advised her to use outpatient nicotine patches. The patient verbalized understanding. 5. The patient is discharged home, to follow up with her pain doctor and Dr. Valderrama as directed. 6. Further recommendations to follow. Dictated by NASREEN Leon for Rodríguez Verde MD cc: NASREEN Leon MD
[2018-09-20] MEDS ORDERED: ELAVIL PO SCH (21:00)
--- NOTE | 2018-09-21 02:49 | HISTORY AND PHYSICAL ---
ADDENDUM: Patient seen and examined by myself. Full note dictated and discussed with nurse practitioner. The patient presented to the hospital again after leaving yesterday AMA. Her story changes extremely frequently. She apparently told the ER that she had been going to a pain clinic, has been overtaking her prescribed Percocet, Zanaflex and Norflex. Notes she has chronic bladder pain. She has been using Benadryl, Azo, Cystex and melatonin. However, to me she states that she only takes Percocet twice a day and that she no longer wants to drive to [place] to the pain clinic. The patient currently is in her baseline extremely poor pulmonary status without any changes. We will admit to the hospital for observation and we will follow. cc: Rodríguez Verde MD
--- NOTE | 2018-09-21 18:40 | DISCHARGE SUMMARY ---
ADMISSION DATE: 09/20/2018 DISCHARGE DATE: 09/20/2018 HOSPITAL COURSE: The patient was admitted earlier this morning. She again is demanding that she go home, states that she feels better, does not want to stay in the hospital. Denies any current complaints. Denies any shortness of breath, chest pain, palpitations. Does states that she has extreme bladder pain. In fact, at times she is heard wailing throughout the hallway. DISPOSITION: As patient is in her baseline chronic pain, baseline chronic COPD, baseline chronic bladder issues, we will discharge her home. We will not write her pain medication nor Azo or any bladder medication as she frequently abuses and overuses every substance that she has. She is extremely noncompliant. She does have oxygen at home but frequently refuses to wear it. Prior to discharge her oxygen level did drop into the mid 80s to upper 80s but as noted she has oxygen at home, and she is at her baseline respiratory status. The patient will be discharged home. She will follow up outpatient with Urology. As noted previously, the patient has been dismissed from my clinic due to her noncompliance and medication overusage. cc: Rodríguez Verde MD
== END 2018-09-20 13:52 | disposition home or self-care (01) | DRG 897 ==
LOC: P.ED 20:16 → P.MEDSURG 09-20 00:45
PROVIDERS: ATTEND Family Medicine
CPT/HCPCS: 51701; 71010; 71045; 80053; 80104; 80301; 80305; 81001; 85025; 87088; 94640; 94761; 96374; 99285; A9270; G0431; G0434; G0477; J2270; P9612

== ENCOUNTER 2018-10-29 09:39 | Inpatient (IN) ==
--- NOTE | 2018-10-29 10:45 | Diag Imaging Result Doc PS360 ---
EXAM: CHEST-1 VIEW HISTORY: fall TECHNIQUE: Chest two views COMPARISON: None. FINDINGS: The lungs are hyperexpanded. No contusion. No pneumothorax. The heart is not enlarged. The vessels are not distended. There are no infiltrates. No effusion identified. There are scattered granuloma. There has been surgery to the lower neck and back. IMPRESSION: No injury. Electronically signed by Layo Lugo 10/29/2018 10:43 AM
--- NOTE | 2018-10-29 10:46 | Diag Imaging Result Doc PS360 ---
EXAM: FEMUR 1 VIEW RIGHT HISTORY: fall TECHNIQUE: Right femur, two views COMPARISON: None. FINDINGS: There is a subcapital right femoral neck fracture. The femoral head remains in the acetabulum. The femoral shaft is rotated and superiorly placed. IMPRESSION: Right femoral neck fracture. Electronically signed by Layo Lugo 10/29/2018 10:44 AM
--- NOTE | 2018-10-29 10:57 | Diag Imaging Result Doc PS360 ---
EXAM: XRAY PELVIS W/HIP 2-3VW RT HISTORY: fall TECHNIQUE: Pelvis and right hip, two views COMPARISON: None. FINDINGS: There is a subcapital fracture to the right femoral head. The femoral head remains in the acetabulum although it is rotated. Femoral shaft is also rotated and superiorly placed. IMPRESSION: Right femoral neck fracture. Electronically signed by Layo Lugo 10/29/2018 10:55 AM
--- NOTE | 2018-10-29 11:28 | PROVIDER DOCUMENTATION ---
This chart was entered by Lucy Hendrickson Scribe, acting as scribe for Lona Oliveira MD. HPI-Musculoskeletal Pain/Inj - GENERAL Source: patient - HX OF PRESENT ILLNESS-MUSKULOSKELTAL Quality of Pain: reports: aching Severity in ED: mild Onset/Duration: 3 days ago Timing: still present Modifying Factors: worse with: movement Any recent injury?: Yes (fall) Locality of Occurance: Home Similar Symptoms Previously?: No Recently seen or treated by another doctor?: No - FALL INJURY Location of Pain/Injury: reports: back, lower extremity Pain Radiation: reports: no radiation Reason for Fall: reports: slipped Symptoms prior to fall:: reports: none Loss of Consciousness: no loss of consciousness Injury Associated Symptoms: reports: back/neck pain (low back), joint pain (R hip) - BACK & NECK PAIN/INJURY Back/Neck Pain Location: reports: paraspinous muscles (low back) Context / Method of Injury: reports: fall Associated Symptoms: reports: lower back pain History of Chronic Neck or Back Pain?: No - HIP/PELVIS PAIN/INJURY Hip Pain Location: reports: hip (R) Pain Radiation: reports: no radiation Context / Method of Injury: reports: fall Associated Symptoms: reports: lower back pain - LOWER EXTREMITY PAIN/INJURY Lower Extremities Pain: hip: right Context / Method of Injury: reports: fell Associated Symptoms: reports: lower back pain <Lona Oliveira - Last Filed: 10/29/18 11:27> <Antonino Ramírez - Last Filed: 10/29/18 13:02> - GENERAL Chief Complaint: Hip Pain Stated Complaint: leg and hip pain Time Seen by Provider: 10/29/18 09:46 - HX OF PRESENT ILLNESS-MUSKULOSKELTAL Nature of Presenting Problem: 63 y/o female presents to ED with worsening R hip pain and low back pain onset 3 days ago. Pt reports she slipped and fell on concrete 3 days ago. Pt states she has been using a walker since the fall, but she can no longer walk. Pt is alert and oriented. (Lona Oliveira) Review of Systems - Adult - REVIEW OF SYSTEMS - ADULT Constitutional: denies: chills, fever Eyes: reports: no symptoms reported Ears, Nose, Mouth & Throat: reports: no symptoms reported Cardiovascular: denies: chest pain, palpitations Respiratory: denies: cough, shortness of breath Gastrointestinal: denies: abdominal pain, diarrhea, nausea, vomiting Genitourinary: reports: no symptoms reported Musculoskeletal: reports: back pain (low), joint pain (R hip) Integumentary: reports: no symptoms reported Neurological: denies: dizziness/vertigo, seizure Psychiatric: reports: no symptoms reported Endocrine: reports: no symptoms reported Hematologic/Lymphatic: reports: no symptoms reported Allergic/Immunologic: reports: no symptoms reported All Other Systems: Reviewed and Negative <Lona Oliveira Maged - Last Filed: 10/29/18 11:27> Past History - Adult - PAST MEDICAL HISTORY-ADULT Review of Records: reports: Old Records Reviewed, Nursing Assessment Review, Medications Reviewed Major Childhood Illnesses: reports: denies history Cardiovascular: reports: HTN Respiratory: reports: asthma, COPD Musculoskeletal: reports: chronic pain, intervertebral disc disease, other (scoliosis) Psychiatric: reports: anxiety Endocrine/Immune: reports: thyroid disorder - PRIOR SURGERIES/PROCEDURES Surgical/Procedure History: reports: hernia repair, back/neck - IMMUNIZATION STATUS Childhood Immunizations: See Nurse Assessment Flu Vaccine: See Nurse Assessment - FAMILY HISTORY Family History: reviewed, not pertinent - SOCIAL HISTORY Smoking: greater than 1 pack/day Provider spent 3-5 mins advising pt. on dangers of tobacco.: Discussed manners to quit use, and f/u contacts for add'l counseling. Substance Use: opiates Alcohol Use Frequency: never Living Situation: family <Lona Oliveira Maged - Last Filed: 10/29/18 11:27> Physical Exam-Injury Related - Physical Exam-Injury Related Initial Vital Signs Reviewed: Yes General Appearance: appears well, alert, no apparent distress Eyes: PERRL/EOMI, pink conjunctivae Head, Ears, Nose, Mouth & Throat: normocephalic/atraumatic, moist mucous membranes, normal ENT inspection Neck: non-tender, full range of motion Respiratory: chest non-tender, lungs clear, normal breath sounds Cardiovascular: tachycardia Abdominal Exam: normal bowel sounds, non tender, soft Back Exam: normal inspection, no CVA tenderness, no vertebral tenderness Extremity: tenderness (R hip). negative: normal range of motion (pain with flexion and rotation of R hip), normal gait Integumentary: normal color, warm/dry Neurologic: grossly normal Psych/Mental Status: normal mood/affect, normal thought content, normal thought process <Lona Oliveira - Last Filed: 10/29/18 11:27> Progress - XRAY 1 XRAY: Right XRAY Study: Femur Impression: Abnormal (FINDINGS: There is a subcapital right femoral neck fracture. The femoral head remains in the acetabulum. The femoral shaft is rotated and superiorly placed. IMPRESSION: Right femoral neck fracture. Electronically signed by Layo Lugo 10/29/2018 10:44 AM) 2 XRAY: Right XRAY Study: Pelvis, Hip Impression: Abnormal (FINDINGS: There is a subcapital fracture to the right femoral head. The femoral head remains in the acetabulum although it is rotated. Femoral shaft is also rotated and superiorly placed. IMPRESSION: Right fe moral neck fracture. Electronically signed by Layo Solis 10/29/2018 10:55 AM 10/29/18 1055) 3 XRAY Study: Chest Impression: Normal (FINDINGS: The lungs are hyperexpanded. No contusion. No pneumothorax. The heart is not enlarged. The vessels are not distended. There are no infiltrates. No effusion identified. There are scattered granuloma. There has been surgery to the lower neck and back. IMPRESSION: No injury. Electronically signed by Layo Solis 10/29/2018 10:43 AM 10/29/18 1043) - CHANGE OF SHIFT REPORT (ED Provider) 1 Report Given and Care Transferred to:: Dr. Ramírez Time of Transfer: 11:30 Items Pending: Physician Consult/Arrival <Lona Oliveira - Last Filed: 10/29/18 11:27> - PLAN OF CARE/RESULTS Result Diagrams: 10/29/18 11:07 10/29/18 11:07 - CONSULTS/PCP/HOSPITALIST Notification #1 *Consult/PCP/Hospitalist*: Dr. Altamirano Time Discussed: 13:01 Reason/Comments: R femoral neck fracture Consult Disposition: Admit <Antonino Ramírez - Last Filed: 10/29/18 13:02> - PLAN OF CARE/RESULTS Progress/Plan/Lab Results: Vital Signs - 8 hr 10/29/18 09:50 Temperature 98.0 F Pulse Rate 102 H Respiratory Rate 18 Blood Pressure 137/83 O2 Sat by Pulse Oximetry 95 Laboratory Results - last 24 hr 10/29/18 10/29/18 10/29/18 11:07 11:07 12:20 WBC 9.57 RBC 4.01 L Hgb 13.1 Hct 40.0 MCV 99.8 H MCH 32.7 H MCHC 32.8 L RDW Std Deviation 14.4 Plt Count 257 MPV 10.0 Immature Gran % (Auto) 0.2 Neut % (Auto) 70.9 Lymph % (Auto) 20.1 L Morrill % (Auto) 7.9 Eos % (Auto) 0.6 Baso % (Auto) 0.3 Immature Gran # (Auto) 0.02 Neut # (Auto) 6.78 H Lymph # (Auto) 1.92 Morrill # (Auto) 0.76 H Eos # (Auto) 0.06 Baso # (Auto) 0.03 Sodium 140 Potassium 3.5 Chloride 100 Carbon Dioxide 29 Anion Gap 11 BUN 9 Creatinine 0.4 L Estimated GFR/1.73 m2 > 60 BUN/Creatinine Ratio 23 Glucose 87 Calculated Osmolality 277 Calcium 9.5 Total Bilirubin < 0.15 L AST 15 ALT 18 Alkaline Phosphatase 93 Total Protein 7.5 Albumin 4.2 Globulin 3.3 Albumin/Globulin Ratio 1.3 Urine Source CATH Urine Color STRAW Urine Turbidity CLEAR Urine pH 6.0 Ur Specific [place] 1.000 Urine Protein NEGATIVE Ur Glucose (Stick) NEGATIVE Ur Ketones (Stick) 10 A Urine Blood NEGATIVE Urine Nitrite NEGATIVE Urine Bilirubin NEGATIVE Urobilinogen Dipstick NORMAL Urine Leukocytes NEGATIVE Urine WBC (Auto) <10 Urine RBC (Auto) <10 U Epithel Cells (Auto) <10 Urine Bacteria (Auto) NEGATIVE Orders Category Date Time Status Salazar Cath Insertion ORDERED Care 10/29/18 11:12 Active CHEST-1 VIEW [RAD] Stat Exams 10/29/18 10:20 Completed FEMUR 1 VIEW RIGHT [RAD] Stat Exams 10/29/18 09:49 Completed XRAY PELVIS W/HIP 2-3VW RT [RAD] Stat Exams 10/29/18 09:49 Completed CBC WITH DIFF [HEME] Stat Lab 10/29/18 11:07 Completed CMP [COMPREHENSIVE METABOLIC PANEL] [CHEM] Stat Lab 10/29/18 11:07 Completed URINALYSIS W/POSS RFLX CULT [URINALYSIS] Stat Lab 10/29/18 12:20 Completed Morphine Med 10/29/18 12:02 Discontinued 4 mg IV NOW ONE Ondansetron [Zofran] Med 10/29/18 12:02 Discontinued 4 mg IV NOW ONE Departure <Lona Oliveira - Last Filed: 10/29/18 11:27> - Departure Date of Disposition Decision: 10/29/18 Time of Disposition Decision: 13:01 Certified Medical Emergency: Emergent - Critical Care Note This patient required my direct & personal management of CC.: No <Antonino Ramírez - Last Filed: 10/29/18 13:02> - Departure DIAGNOSIS: Femoral neck fracture Qualifiers: Encounter type: initial encounter Fracture type: closed Laterality: right Qualified Code(s): S72.001A - Fracture of unspecified part of neck of right femur, initial encounter for closed fracture Disposition: ADMITTED INPATIENT 09 Condition: Stable Referrals and Follow-Ups: Rodríguez Verde MD [Primary Care Provider] - Discharge Education: Steps to Quit Smoking, [id number] Attestation - Physician/ FRANKIE Attestation Patient care was provided by Advanced Practice Provider:: No The physician spent face to face time with patient:: Yes Advanced Practice Provider documentation review:: Supervising physician onsite and consulted in the evaluation and care of this patient. The physician did have a face to face encounter with the patient. <Lona Oliveira - Last Filed: 10/29/18 11:27> This chart was documented by the indicated scribe, (Lucy Hendrickson Scribe) and accurately reflects the services I performed and decisions made by me, Lona Oliveira MD, as attested by the provider's signature.
[2018-10-29 11:50] LABS: BASO# 0.03 X1000 (0.0-0.2); BASO% 0.3 % (0.0-0.8); EOS# 0.06 X1000 (0.0-0.7); EOS% 0.6 % (0.0-10.0); HEMOGLOBIN 13.1 g/dL (12.0-16.0); IMM GRAN# 0.02 X1000 (0.0-0.04); IMM GRAN% 0.2 % (0.0-0.5); LYMPH# 1.92 X1000 (1.2-3.4); LYMPH% 20.1 % (20.5-51.1); MCH 32.7 PG (27-31); MCHC 32.8 g/dL (33-37); MCV 99.8 FL (81-99); MONO# 0.76 X1000 (0.11-0.59); MONO% 7.9 % (1.7-9.3); NEUT# 6.78 X1000 (1.4-6.5); NEUT% 70.9 % (42.2-75.2); PLT 257 X1000 (130-400); RBC 4.01 XMIL (4.2-5.4); RDW 14.4 % (11.5-14.5); WBC 9.57 X1000 (4.8-10.8)
[2018-10-29] MEDS ORDERED: MORPHINE IV ONE (12:02)
[2018-10-29] MEDS ORDERED: ZOFRAN IV ONE (12:02)
[2018-10-29 12:21] LABS: AGAP 11; ALB/GLOB RATIO 1.3; ALBUMIN 4.2 g/dL (3.5-5.0); ALKALINE PHOSPHATASE 93 U/L (32-104); BUN 9 mg/dL (8-22); CALCIUM 9.5 mg/dL (8.8-10.2); CHLORIDE 100 mmol/L (98-107); COSMO 277; CREATININE 0.4 mg/dL (0.5-0.9); ESTIMATED GFR > 60; GLUCOSE 87 mg/dL (70-104); GOT 15 U/L (10-30); GPT 18 U/L (10-36); POTASSIUM 3.5 mmol/L (3.5-5.1); SODIUM 140 mmol/L (136-145); TCO2 29 mmol/L (25-35); TOTAL BILIRUBIN < 0.15 mg/dL (0.20-1.00); TOTAL PROTEIN 7.5 g/dL (6.3-8.3)
[2018-10-29 12:35] LABS: URINE SOURCE CATH
[2018-10-29 12:45] LABS: BILIRUBIN URINE NEGATIVE (NEGATIVE); BLOOD URINE NEGATIVE (NEGATIVE); COLOR STRAW; GLUCOSE URINE NEGATIVE (NEGATIVE); KETONE URINE 10 mg/dL (NEGATIVE); LEUKOCYTES URINE NEGATIVE (NEGATIVE); NITRITE URINE NEGATIVE (NEGATIVE); PROTEIN URINE NEGATIVE (NEGATIVE); TURBIDITY URINE CLEAR (CLEAR); UROBILINOGEN URINE NORMAL (NORMAL)
[2018-10-29 12:47] LABS: UR EPITHELIAL CELLS <10 /HPF (<10); URINE BACTERIA NEGATIVE /HPF; URINE RBC <10 /HPF (<10); URINE WBC <10 /HPF (<10)
[2018-10-29] MEDS ORDERED: OXY IR PO PRN (14:24)
[2018-10-29 14:31] LABS: INR 0.87; PROTIME 12.6 Seconds (11.0-16.0)
--- NOTE | 2018-10-29 14:42 | HISTORY AND PHYSICAL ---
HISTORY: Mrs. Randolph is a 63-year-old. She has been in and out of the hospital the last couple of months. Apparently, she had some revision done on her back hardware for scoliosis. She has a history by report of interstitial cystitis. She has had ulcerative colitis in the years past, but said that that has gone away. She denies any diabetes or heart disease. She has allergies to amoxicillin and Macrobid. She reports that she fell on Monday or . Today is the following Monday, and did not think much about it. Her right hip did hurt on occasion, but this started hurting worse. She came into the emergency room. Today, she has a right femoral neck fracture so we are going to admit her for hip repair. PAST MEDICAL HISTORY: COPD. She still smokes. Chronic bladder issues by report. Apparently, she has interstitial cystitis. She has chronic back pain. She was using Azo medication and using pain medicines as well. They have documented in the past frequent abuses. She has oxygen at home but apparently refuses to wear it. FAMILY HISTORY: She did not report any cardiac or renal issues, or anything specific. She said there were a whole hosts of problems, but did not think of anything specifically. SOCIAL HISTORY: She lives with I think her daughter and her family. She lives in [place] I believe. REVIEW OF SYSTEMS: She feels like she has lost weight over the last couple of months. No fever or chills.HEENT: No reports of change in hearing or visual acuity. Neck: No neck pain or adenopathy. Respiratory: No increased work of breathing or dyspnea. Cardiovascular: No chest pain or tachy palpitations. GI and : She does not report any concerns or problems with bowel function or urination recently. Endocrinologic/Hematologic: No significant history. PHYSICAL EXAMINATION: Exam in the emergency room, she is awake and alert, and oriented x3. VITAL SIGNS: Temperature 98, pulse 100, respirations 18, blood pressure 137/83. HEENT: Pupils are equal. No distended neck veins. LUNGS: Clear in all lung [place]. CARDIOVASCULAR: Regular rhythm and rate without murmur or S3. Weight 75 pounds. LUNGS: Clear anterolateral. Decreased breath sounds both bases. CARDIOVASCULAR: Regular rhythm and rate without murmur or S3. PMI nondisplaced. Carotid, radial, femoral, popliteal and pedal pulses 2+ and symmetrical. ABDOMEN: Soft, nondistended, and nontender. SKIN: Warm and dry. I did not appreciate any rashes. No oral or nasal mucosal lesions appreciated. EXTREMITIES: On her right leg, she has extended externally rotated. Left leg was bent. She has discomfort around the right inguinal area and the lateral hip. DIAGNOSTIC AND LABORATORY: White count 9570, hematocrit 40, and platelet count 257,000. Sodium 140, potassium 3.5, chloride 100, BUN 9, creatinine 0.4. Calcium 9.5, AST 15, ALT 18, alkaline phosphatase is 93. Albumin 4.2. Urinalysis unremarkable. Chest x-ray with no sign of any acute pathology. She is hyperexpansion consistent with COPD. No pneumothorax. No infiltrates. There are scattered granuloma. There has been surgery to lower neck and back appreciated. Femoral x-ray right hip: Right femoral neck fracture. The femoral head remains in the acetabulum. The femoral shaft is rotated and superiorly placed. ASSESSMENT AND PLAN: 1. Right femoral neck fracture which is going to need to be repaired. I think she is okay for surgery at the present time. 2. She has had scoliosis, and had some surgeries with rods. Apparently, she had a recent revision surgery on her back. 3. There is a report of her having interstitial cystitis. I do not have documentation of that. 4. She has a distant history of ulcerative colitis. I note that her lab work looks good, and I think she is ready for surgery. We will make sure we get an EKG. Check PT and PTT. 5. Review of her home medicines: She apparently has history of osteoporosis. She is on Fosamax 70 mg p.o. every week on amitriptyline 25 mg at bedtime, baclofen 10 mg q.8 hours p.r.n., Celexa 20 mg a day, Flonase 2 puffs each nostril daily, gabapentin 400 mg b.i.d. Apparently, she has pancreatic insufficiency. She is on Creon 34249 units p.o. I am assuming that that is possibly in the morning, and then she takes 91577 units p.o. t.i.d. with meals. She is on oxybutynin chloride ER 15 mg daily. I am assuming that is for bladder spasms. I do not see any reason we cannot continue these. We will hold the Fosamax until she leaves the hospital. We will put her on a proton pump inhibitor p.o. would be fine. Nexium or Prilosec 40 mg once a day. We will check her thyroid, T4, TSH, B12, and folate in the morning. Recheck electrolytes again in the morning as well as a CBC. I think the plan is to have surgery either this evening or in the morning. cc: Abel Turner MD
--- NOTE | 2018-10-29 15:38 | EKG Report ---
Test Performed on : 10/29/2018 2:30:19 PM Test Reason : preop Blood Pressure : / mmHG Vent. Rate : 092 BPM Atrial Rate : 092 BPM P-R Int : 106 ms QRS Dur : 084 ms QT Int : 374 ms P-R-T Axes : 078 067 258 degrees QTc Int : 462 ms Sinus rhythm. with short UT Right atrial enlargement ST & T wave abnormality, consider inferior ischemia ST & T wave abnormality, consider anterolateral ischemia Abnormal ECG When compared with ECG of 17-SEP-2018 07:18, T wave inversion now evident in Inferior leads T wave inversion now evident in Anterior leads Confirmed by Andrews BUTLER, Tesfaye Li ([id number]) on 10/30/2018 9:06:37 AM
[2018-10-29] MEDS ORDERED: MORPHINE IV PRN (15:55)
[2018-10-29] MEDS ORDERED: ROBINUL ONE (17:07)
[2018-10-29] MEDS ORDERED: XYLOCAINE-MPF 2% ONE (17:07)
[2018-10-29] MEDS ORDERED: DIPRIVAN 1% ONE (17:08)
[2018-10-29] MEDS ORDERED: FENTANYL ONE (17:08)
[2018-10-29] MEDS ORDERED: CLINDAMYCIN 600 MG/D5W 600 MG/50 ML IVPB IV ONE (17:10)
[2018-10-29] MEDS ORDERED: CLINDAMYCIN 600 MG/D5W 600 MG/50 ML IVPB ONE (17:17)
[2018-10-29] MEDS ORDERED: SODIUM CHLORIDE 0.9% 10 ML ONE (17:55)
[2018-10-29] MEDS ORDERED: NEO-SYNEPHRINE ONE (17:55)
[2018-10-29] MEDS ORDERED: ZOFRAN ONE (18:15)
[2018-10-29] MEDS: NICODERM PATCH TD SCH (18:17)
--- NOTE | 2018-10-29 18:45 | OPERATIVE NOTE ---
PROCEDURE DATE: 10/29/2018 PREOPERATIVE DIAGNOSIS: Displaced right femoral neck fracture. POSTOPERATIVE DIAGNOSIS: Displaced right femoral neck fracture. PROCEDURE: Right bipolar hemiarthroplasty of the hip. SURGEON: Kolby Altamirano MD. BRANCH LEAD: NASREEN Pennington. Mr. Laura was necessary for proper retraction and manipulation of the arm. ANESTHESIA: General. COMPLICATION: None. PROCEDURE IN DETAIL: This 63-year-old female presents for surgical hemiarthroplasty of the right hip. Risks, benefits, and no guarantees were discussed and she was willing to proceed. She was taken to the operating room and satisfactory anesthesia obtained. The right hip was prepped and draped in the usual sterile fashion. A time-out was taken to confirm operative site, procedure, and patient. She was placed in lateral position and all bony prominences padded. Neutral alignment was maintained of the spine. After ensuring proper time-out for patient, site, and procedure, a posterior approach to the right hip was undertaken through a curved incision centered over the greater trochanter. Dissection was carried down through the deep fascia to the piriformis, which was released off the back of the hip capsule. The piriformis and short external rotators were reflected to protect the sciatic nerve, and a capsulotomy incision was made to expose the femoral neck fracture. The femoral neck fracture was osteotomized roughly 8 mm above the lesser trochanter with a clean saw cut. The femoral head was removed and sized to a size 42 outer diameter head. Sequential broaching of the proximal femur was undertaken with the OSIsoftuy Corail broach system up to a size 10 stem. Standard neck geometry with a 1.5 neck length produced good stability and druze of leg lengths. The trial implant was removed and a standard neck size 10 stem Corail was impacted into the proximal femur with secure axial and rotational stability. A 42 outer diameter bipolar head with a 28 mm inner diameter and 1.5 neck length was assembled onto this and impacted. The hip was reduced and final range of motion undertaken without any significant instability. The wound was copiously irrigated with irrigant. It was closed in layers with 0 Vicryl repairing the capsule and piriformis, and #1 Vicryl closing the deep fascia, 2-0 Vicryl in the subcutaneous tissue, and skin everett on the skin edges. Sterile dressings were applied and the tourniquet released with good return of capillary blood flow. The patient was recovered from anesthesia and transferred to the recovery room in stable condition. No intraoperative complications were noted. Instrument count and sponge count were correct at the time of closure. cc: Jonathon Altamirano MD
[2018-10-29] MEDS ORDERED: ZOFRAN IV PRN (19:00)
[2018-10-29] MEDS ORDERED: MILK OF MAGNESIA PO PRN (19:00)
[2018-10-29] MEDS ORDERED: HALDOL IV PRN (19:00)
[2018-10-29] MEDS ORDERED: NS 1,000 ML ONE (19:04)
[2018-10-29] MEDS: TYLENOL PO SCH (20:35)
[2018-10-29] MEDS: OXY IR PO PRN (20:35)
[2018-10-29] MEDS: VANCOMYCIN 1 GM/NS 1 GM/250 ML IVPB IV SCH (20:36)
[2018-10-29] MEDS: COLACE PO SCH (20:36)
[2018-10-29] MEDS: MORPHINE IV PRN (23:05)
[2018-10-30] MEDS: OXY IR PO PRN ×8 (01:14→23:42)
[2018-10-30] MEDS: TYLENOL PO SCH ×3 (02:12→20:17)
--- NOTE | 2018-10-30 04:57 | ORTHOPAEDICS CONSULTATION ---
DATE: 10/29/2018 CHIEF COMPLAINT: Fall with right hip pain. HISTORY OF PRESENT ILLNESS: This is a 63-year-old female who reports that she had a fall about 3 to 4 days ago and landed on her right hip. She reports she has been walking with a walker, is still having pain in that hip. She presented to the emergency department for hip pain and x-rays were taken and showed a femoral neck fracture. Orthopedics were consulted to come see the patient. PAST MEDICAL HISTORY: COPD, asthma, hypertension, thyroid disease, anxiety and chronic pain. She also reports scoliosis. PAST SURGICAL HISTORY: She reports back surgery for her scoliosis, also hernia repair. ALLERGIES: The patient is allergic to Augmentin and Macrobid. She reports a rash with these medications. SOCIAL HISTORY: She is a smoker currently a pack a day and she denies alcohol or drug use. PHYSICAL EXAM: Right lower extremity. There is good pedal pulses. There is good range of motion about the knee. There is some tenderness to the distal femur. There is also tenderness to the proximal femur. There is pain with flexion and rotation of the right hip. There is also anterior joint line tenderness. There is negative Homans sign.General: Patient is resting in the bed comfortably. X-RAYS: Review of x-ray shows a subcapital right femoral neck fracture. It looks like the femoral head is in the acetabulum.Vital Signs: Blood pressure 137/83, oxygen is 95% on room air, respiratory rate is 18, pulse rate was 102, temperature is 98 degrees. LABS: White blood cells 9.57, hemoglobin 13.1, hematocrit 40.0, platelets are 257,000. Sodium 140, potassium 3.5, chloride 100, BUN 9, creatinine 0.4, glucose 87. Urine was clear. ASSESSMENT: Right femoral neck fracture. PLAN: We will plan on doing a bipolar hip replacement on the right side. The patient has been NPO and does not take blood thinners or aspirin. All questions were answered. The risks and benefits of surgery was gone over with the patient. These risks include damage to tendon, nerve or blood vessel, bleeding, and . The patient agrees to these risks. There is also risk of anesthesia. We will plan on right bipolar hip replacement this afternoon at around 5 p.m. Dictated by NASREEN Pennington for Jonathon Altamirano MD cc: NASREEN Pennington MD
[2018-10-30] MEDS: PRILOSEC PO SCH (06:17)
[2018-10-30] MEDS: XARELTO PO SCH (06:17)
[2018-10-30 06:50] LABS: HEMATOCRIT 34.3 % (37.0-47.0); HEMOGLOBIN 10.8 g/dL (12.0-16.0); MCH 32.9 PG (27-31); MCHC 31.5 g/dL (33-37); MCV 104.6 FL (81-99); RBC 3.28 XMIL (4.2-5.4); RDW 14.7 % (11.5-14.5); WBC 7.07 X1000 (4.8-10.8)
[2018-10-30] MEDS: MORPHINE IV PRN ×6 (07:00→21:26)
[2018-10-30 07:28] LABS: AGAP 9; BUN 9 mg/dL (8-22); CALCIUM 8.2 mg/dL (8.8-10.2); CHLORIDE 99 mmol/L (98-107); COSMO 270; CREATININE 0.3 mg/dL (0.5-0.9); ESTIMATED GFR > 60; GLUCOSE 116 mg/dL (70-104); MAGNESIUM 1.7 mg/dL (1.5-2.7); POTASSIUM 2.9 mmol/L (3.5-5.1); SODIUM 135 mmol/L (136-145); TCO2 27 mmol/L (25-35)
[2018-10-30] MEDS: NS 1,000 ML IV SCH ×4 (07:37→18:26)
[2018-10-30] MEDS ORDERED: PNEUMOVAX 23 IM ONE (07:55)
[2018-10-30] MEDS: VANCOMYCIN 1 GM/NS 1 GM/250 ML IVPB IV SCH (08:28)
[2018-10-30] MEDS: FERROUS SULFATE PO SCH (08:30)
[2018-10-30] MEDS: NICODERM PATCH TD SCH (08:31)
--- NOTE | 2018-10-30 10:12 | ORTHOPAEDICS PROGRESS NOTE ---
DATE: 10/30/2018 SUBJECTIVE: Ms. Mcnulty is a 63-year-old female, who is postoperative day 1 from a right bipolar hemiarthroplasty. She complains of some pain at this time, but overall she is doing well. OBJECTIVE: General: She is a well-developed, well-nourished female. She is alert, oriented, and cooperative with the examination. She is in no acute distress. Vital Signs: Stable. Extremities: Her right calf is soft. Her right leg is grossly neurovascular intact. ASSESSMENT: Stable postoperative day 1 from a right bipolar hemiarthroplasty. PLAN: We will have her start working with physical therapy. Once she is medically stable, she can be discharged. We will have her follow up in the office in 10 to 14 days for staple removal and follow up. Dictated by WALDO Magana for Jonathon Altamirano MD cc: WALDO Magana MD
[2018-10-30] MEDS: KLOR-CON PO SCH ×2 (10:32→20:18)
--- NOTE | 2018-10-30 10:45 | PROGRESS NOTE ---
DATE: 10/30/2018 SUBJECTIVE: This patient is lying comfortably in bed. She is complaining of right hip pain. She is tolerating p.o. Oriented x3. OBJECTIVE: Vital Signs: Temperature 98.8 degrees, pulse 97, respiratory rate 16, blood pressure 147/73, oxygen saturation 93 on room air. HEENT: Head normocephalic. No trauma. PERRLA. Neck: Supple. No JVD. No masses. Central trachea. Chest: Clear to auscultation. No wheezing. No rales. Abdomen: Soft, nontender, nondistended. No hepatosplenomegaly. Extremities: Right hip is covered with a dressing. No blood coming out from that. Lesion seems to be clean, dry, and intact. Neurovascular seems to be fine. She moves her toes without problem. Neurological Examination: The patient is alert and oriented x3. No focal deficits. Laboratory: WBCs 7, hemoglobin 10.8, hematocrit 34.3, platelets 230,000. Sodium 135, potassium 2.9, chloride 99, bicarbonate 27, BUN 9, creatinine 0.3, glucose 116, calcium 8.2, magnesium 1.7. ASSESSMENT AND PLAN: 1. Displaced right femoral neck fracture, status post right bipolar hemiarthroplasty of the right hip, postoperative day #1. She seems to be doing good. We are going to start working with physical therapy. We will continue with pain treatment, anticoagulation. 2. Hypokalemia. I will replace the potassium. 3. Anemia. For now, we will monitor. 4. History of chronic obstructive pulmonary disease. It looks like this patient is still smoking. We will continue just to monitor. No exacerbation at this moment. 5. Chronic back pain. Aware. Continue pain medication. 6. Tobacco abuse. This patient has been highly advised against tobacco use. I will continue with daily cessation education. cc: Sven Ruiz MD
[2018-10-30] MEDS: COLACE PO SCH (20:18)
[2018-10-31] MEDS: MORPHINE IV PRN ×3 (01:23→09:54)
[2018-10-31] MEDS: OXY IR PO PRN ×4 (04:17→15:47)
[2018-10-31] MEDS: PRILOSEC PO SCH (06:14)
[2018-10-31] MEDS: TYLENOL PO SCH ×2 (06:14→12:42)
[2018-10-31] MEDS: XARELTO PO SCH (06:14)
[2018-10-31 07:05] LABS: HEMATOCRIT 37.9 % (37.0-47.0); HEMOGLOBIN 11.8 g/dL (12.0-16.0)
[2018-10-31 07:52] LABS: AGAP 8; BUN 6 mg/dL (8-22); CALCIUM 9.1 mg/dL (8.8-10.2); CHLORIDE 99 mmol/L (98-107); COSMO 273; CREATININE 0.3 mg/dL (0.5-0.9); ESTIMATED GFR > 60; GLUCOSE 131 mg/dL (70-104); MAGNESIUM 1.8 mg/dL (1.5-2.7); POTASSIUM 4.6 mmol/L (3.5-5.1); SODIUM 137 mmol/L (136-145); TCO2 30 mmol/L (25-35)
[2018-10-31] MEDS: FERROUS SULFATE PO SCH (09:21)
[2018-10-31] MEDS: NICODERM PATCH TD SCH (09:22)
[2018-10-31 10:51] VITALS: BP 148/83
--- NOTE | 2018-10-31 12:21 | DISCHARGE SUMMARY ---
ADMISSION DATE: 10/29/2018 DISCHARGE DATE: 10/31/2018 DIAGNOSES: 1. Right femoral neck fracture, displaced, status post right bipolar hemiarthroplasty of the hip on 10/29/2018. 2. Scoliosis. Aware. 3. Reported history of interstitial cystitis. 4. Hypokalemia, resolved. 5. Anemia. 6. History of chronic obstructive pulmonary disease. 7. Chronic back pain. DIAGNOSTICS: 1. Femur x-ray revealed right femoral neck fracture. 2. Hip and pelvis x-ray on the right revealed right femoral neck fracture. 3. Chest x-ray revealed no injury, no pneumothorax, no contusion. Heart is not enlarged. Vessels are not distended. There are no infiltrates, no effusion identified. CONSULTANTS: Dr. Jonathon Altamirano, Orthopedics. PROCEDURES: Right bipolar hemiarthroplasty of the hip. HOSPITAL COURSE: Ms Mcnulty presented to the emergency room after falling 4 to 5 days prior. She stated that she had intermittent hip pain during this time, but prior to coming to the emergency room, the pain increased and became persistent. She was found to have a right femoral neck fracture for which she underwent hemiarthroplasty on the , which she tolerated well. She has been working with Physical Therapy and thankfully is ready to be discharged to rehab. DISCHARGE PHYSICAL EXAMINATION: Vital signs: Blood pressure is 148/80 with a heart rate of 90, respirations are 20, temperature is 98.6 degrees oral, with room air saturations 96 to 98 percent. General: This is a 63-year-old female who is sitting up in the bed watching TV, in no distress. HEENT: Head is normocephalic, atraumatic. Mucous membranes moist. Neck: Supple with trachea midline. Cardiovascular: Regular rate and rhythm. S1 and S2 are appreciated. She has no murmurs. Calves are nontender bilateral. Pulmonary: Breath sounds are clear. No increased work of breathing noted. Chest rises and falls symmetric with respiration. Chest wall is nontender to palpation. Gastrointestinal: Abdomen is soft, nontender, nondistended with bowel sounds in all 4 quadrants. Skin: Warm and dry. She does have a dressing to her right hip that is dry and intact. Neurologic: She is alert and oriented x3. DISCHARGE MEDICATIONS: 1. Creon as directed. 2. Flonase nasal spray 2 sprays intranasally daily. 3. Fosamax 70 mg p.o. q.7 days. 4. Colace 200 mg p.o. at bedtime. 5. Oxy IR 5 mg p.o. q.3 hours p.r.n. 6. Oxybutynin 15 mg p.o. daily. 7. Xarelto 10 mg p.o. q.24 hours. 8. Gabapentin 400 mg p.o. b.i.d. 9. NicoDerm patch 14 mg p.o. daily. 10. Milk of magnesia 30 mL p.o. p.r.n. constipation. 11. Ferrous sulfate 325 mg p.o. daily. 12. Celexa 20 mg p.o. daily. 13. Tylenol 500 mg p.o. q.6 hours FOLLOWUP: 1. She is to follow up with Dr. Jonathon Altamirano in 2 weeks for staple removal. 2. Dr. Rodríguez Verde in 2 to 3 weeks after discharge from rehab. DISPOSITION: She is being discharged in transfer to [facility] in stable condition with family members present. TIME SPENT: This is a greater than 30 minute discharge. Dictated by NASREEN Montes for Sven Ruiz MD cc: NASREEN Montes MD
[2018-10-31] MEDS: NS 1,000 ML IV SCH (14:06)
== END 2018-10-31 16:39 | DRG 470 ==
LOC: SUPCPDRO → ED 09:39 → 4N 13:14 → SUATTDRO 13:14
PROVIDERS: ATTEND Internal Medicine
CPT/HCPCS: 51702; 71010; 71045; 73502; 73551; 80048; 80053; 81001; 83735; 85014; 85018; 85025; 85027; 85610; 85730; 88305; 88311; 93005; 93010; 94799; 96374; 96375; 97116; 97162; 97530; 99285; A9270; J2270; J2370; J2405; J3010; J3370; J7030

== ENCOUNTER 2019-04-11 10:54 | Inpatient (IN) ==
[2019-04-11 11:34] LABS: BASO# 0.08 X1000 (0.0-0.2); BASO% 0.7 % (0.0-0.8); EOS# 0.12 X1000 (0.0-0.7); HEMATOCRIT 43.6 % (37.0-47.0); HEMOGLOBIN 13.6 g/dL (12.0-16.0); IMM GRAN# 0.02 X1000 (0.0-0.04); IMM GRAN% 0.2 % (0.0-0.5); LYMPH# 2.58 X1000 (1.2-3.4); LYMPH% 21.2 % (20.5-51.1); MCH 28.4 PG (27-31); MCHC 31.2 g/dL (33-37); MONO# 0.51 X1000 (0.11-0.59); MONO% 4.2 % (1.7-9.3); MPV 9.9 FL (7.4-10.4); NEUT# 8.85 X1000 (1.4-6.5); NEUT% 72.7 % (42.2-75.2); PLT 428 X1000 (130-400); RBC 4.79 XMIL (4.2-5.4); RDW 16.6 % (11.5-14.5); WBC 12.16 X1000 (4.8-10.8)
[2019-04-11 11:34] LABS: BILIRUBIN URINE NEGATIVE (NEGATIVE); BLOOD URINE NEGATIVE (NEGATIVE); CLARITY CLEAR (CLEAR); COLOR YELLOW; GLUCOSE URINE NEGATIVE (NEGATIVE); KETONE URINE NEGATIVE (NEGATIVE); LEUKOCYTES URINE NEGATIVE (NEGATIVE); NITRITE URINE NEGATIVE (NEGATIVE); PROTEIN URINE NEGATIVE (NEGATIVE); UROBILINOGEN URINE NORMAL
[2019-04-11 11:35] LABS: URINE BACTERIA NEGATIVE /HFP; URINE CAST NONE SEEN /LPF; URINE CRYSTAL NONE SEEN /HPF; URINE EPITHELIAL CELLS <10 /HPF (<10); URINE RBC <10 /HPF (<10); URINE SOURCE CLEAN CATCH; URINE WBC <10 /HPF (<10); URINE YEAST NONE SEEN /HPF
[2019-04-11 11:57] LABS: INR 0.85
[2019-04-11 11:58] LABS: PTT 34.3 Seconds (22.3-41.8)
--- NOTE | 2019-04-11 11:58 | Diag Imaging Result Doc PS360 ---
CHEST-2 VIEWS - 04/11/2019 INDICATION: shortness of breath COMPARISON: 10/29/2018 FINDINGS: Lungs are hyperexpanded compatible with COPD. No infiltrates or edema. No pneumothorax or pleural effusion. Heart size and pulmonary vascularity is normal. Stable extensive thoracolumbar spine fusion rods. IMPRESSION: COPD. No acute disease. Electronically signed by Kanu Meeks 04/11/2019 11:56 AM
[2019-04-11 12:05] LABS: AGAP 13; ALBUMIN 4.4 g/dL (3.5-5.0); ALKALINE PHOSPHATASE 112 U/L (32-104); BUN 7 mg/dL (8-22); CALCIUM 9.5 mg/dL (8.8-10.2); CHLORIDE 97 mmol/L (98-107); CK PROFILE 78 U/L (24-173); COSMO 277; CREATININE 0.5 mg/dL (0.5-0.9); ESTIMATED GFR > 60; GLUCOSE 119 mg/dL (70-104); GOT 17 U/L (10-30); GPT 10 U/L (10-36); POTASSIUM 4.3 mmol/L (3.5-5.1); SODIUM 139 mmol/L (136-145); TCO2 29 mmol/L (25-35); TOTAL BILIRUBIN < 0.15 mg/dL (0.20-1.00); TOTAL PROTEIN 7.7 g/dL (6.3-8.3)
[2019-04-11] MEDS ORDERED: DUONEB (A & A) INH ONE (12:13)
[2019-04-11] MEDS ORDERED: SOLU-MEDROL IV ONE (12:14)
[2019-04-11] MEDS ORDERED: ZOFRAN IV ONE (12:47)
[2019-04-11] MEDS ORDERED: MORPHINE IV ONE (12:47)
[2019-04-11 12:48] LABS: BE 4.7 mmoll (-3.0-3.0); BLOOD TYPE ARTERIAL; HCO3-(ACT) 27.9 mmoll (20.0-26.0); METHB 1.1 % (0.0-1.5); O2(CT) 14.2 mL/dL (15.0-23.0); PCO2(98.6) 48 mmHg (35-45); SAMPLE BLOOD; SAO2 87.5 % (95.0-100.0); THB 14.1 g/dL (11.5-17.4); pH(98.6) 7.41 (7.35-7.45)
[2019-04-11 12:51] LABS: ALLEN TEST YES; MODALITY ROOM AIR; PO2(98.6) 44 mmHg (60-100)
[2019-04-11 12:52] LABS: O2HB 71.5 % (95.0-99.0)
--- NOTE | 2019-04-11 12:56 | EKG Report ---
Test Performed on : 04/11/2019 11:28:43 AM Test Reason : shortness of breath Blood Pressure : / mmHG Vent. Rate : 108 BPM Atrial Rate : 108 BPM P-R Int : 126 ms QRS Dur : 080 ms QT Int : 330 ms P-R-T Axes : 081 084 075 degrees QTc Int : 442 ms Sinus tachycardia. Biatrial enlargement Cannot rule out Anterior infarct , age undetermined Abnormal ECG When compared with ECG of 29-OCT-2018 14:30, T wave inversion no longer evident in Inferior leads T wave inversion no longer evident in Anterolateral leads Unconfirmed Result
[2019-04-11] MEDS ORDERED: ZOFRAN IV PRN (13:59)
--- NOTE | 2019-04-11 14:33 | Diag Imaging Result Doc PS360 ---
EXAM: CT ANGIOGRAM PULMONARY ARTERIES - 04/11/2019 HISTORY: suspected PE TECHNIQUE: CT angiogram pulmonary arteries with intravenous contrast. Axial, 2-D coronal MIP, and 3-D MIP images are obtained. COMPARISON: None. FINDINGS: There are no filling defects identified pulmonary arteries. There is no indication of aortic dissection. There are [id number] emphysematous changes. There are a scattered calcified granulomas and there are calcified bilateral hilar and mediastinal lymph nodes from old granulomatous disease. There are retained secretions in pleural fluid and right lower lobe bronchi. There is ill-defined infiltrate at the inferior right lower lobe. This may relate to bronchopneumonia or to aspiration. There is no other consolidation, pleural effusion, or pneumothorax identified. There is scoliosis and spondylosis are changes with metallic hardware noted. IMPRESSION: No evidence of pulmonary embolism. Retained secretions and/or fluid in right lower lobe bronchi. Ill-defined infiltrate at inferior right lower lobe. This may relate to bronchopneumonia or to aspiration. Electronically signed by Laith Jimenez 04/11/2019 2:31 PM
[2019-04-11] MEDS: DUONEB (A & A) INH SCH ×3 (15:40→23:28)
[2019-04-11] MEDS: ROCEPHIN 1 GM in NS 50 ML IV SCH (16:25)
[2019-04-11] MEDS: NICODERM PATCH TD SCH (18:15)
[2019-04-11] MEDS: LIORESAL PO SCH ×2 (18:15→22:31)
[2019-04-11] MEDS: NORCO-5 PO PRN (18:15)
[2019-04-11] MEDS: PULMICORT INH SCH (20:17)
--- NOTE | 2019-04-11 21:06 | HISTORY AND PHYSICAL ---
PRIMARY CARE PROVIDER: Yoandy Benedict MD CHIEF COMPLAINT: Shortness of breath. HISTORY OF PRESENT ILLNESS: Ms. Yolanda Mcnulty is a 63-year-old female with a medical history of essentially end-stage COPD, now comes in with a 2- to 3-week history of shortness of breath, being treated for bronchitis by Dr. Benedict. Apparently, she is currently on a 2nd antibiotic of doxycycline. States that over the last 4 to 5 days, her shortness of breath and generalized body aches with chills and green-yellow phlegm have productively gotten worse. What she felt was new was bilateral lower extremity edema that she was having. She states she has never had that before and so she came in. Her ABGs are quite abnormal. She went for a CTA of the lungs, which ruled out a pulmonary emboli, but it did show right lower lobe pneumonia, and so we will treat her for that. We will get a sputum culture if possible. She does state that occasionally she has trouble swallowing just because of her dry mouth, but really kind of denies any aspiration. PAST MEDICAL HISTORY: 1. Interstitial cystitis. 2. Ulcerative colitis that has added to her having anorexia with a weight is low as 84, where she normally is 93 to 97 pounds. 3. COPD. 4. Chronic back pain. 5. Scoliosis. 6. Chronic pain medication abuse. 7. Osteoporosis. 8. Depression. 9. Pancreatic insufficiency secondary to calcified spots. SURGICAL HISTORY: 1. Three back surgeries for scoliosis correction. 2. Total arthroplasty of the right hip. SOCIAL HISTORY: A 6-npoc-xwb-day smoker for 30+ years. Denies alcohol or illicit drug use. She uses a walker sometimes for ambulation. She lives with her son and brother and is on disability. FAMILY HISTORY: Mother had hypertension. ALLERGIES: Augmentin, Macrobid, and oxybutynin, and she has a sensitivity to steroids of being jittery. HOME MEDICATIONS: Not verified. It looks like what is listed, though, is Creon, Flonase, Fosamax, oxybutynin, Colace, oxycodone, Celexa, ferrous sulfate, Neurontin, milk of magnesia, nicotine patch, Tylenol, and Xarelto. We will have to get those verified. REVIEW OF SYSTEMS: A 14 point review of systems is complete, and all are negative except for those mentioned in the above HPI. PHYSICAL EXAMINATION: VITAL SIGNS: Temperature 98.2 degrees, heart rate 103, respiratory rate 16, blood pressure 143/74, O2 saturation 97% on 3 L nasal cannula. 85 pounds, BMI of 16.4. GENERAL: Ms. Yolanda Mcnulty as a 63-year-old ill-appearing anorexic female. She is in mild distress with her respiratory effort. HEENT: Atraumatic, normocephalic. Pupils equal, round, and reactive to light. Extraocular movements intact. Mucous membranes are dry. NECK: Trachea midline. CARDIOVASCULAR: S1, S2. Regular rate and rhythm. No rubs, gallops, or murmurs. She has 1+ lower extremity pitting edema, pretibial all the way through the foot. +2 dorsalis and radial pulses. Negative JVD or carotid bruits. PULMONARY: Expiratory wheezes noted throughout. Decreased in the bases. Mild accessory muscle use and work of breathing noted. Tolerating nasal cannula. GASTROINTESTINAL: Soft, nontender, nondistended. Positive bowel sounds x4. EXTREMITIES: Moves all extremities equally with full range of motion. NEUROLOGIC: A and O x3. Follows commands. Sensory is intact. SKIN: Warm, dry, intact. DIAGNOSTIC STUDIES: White blood cells 12,000, hemoglobin 13, hematocrit 43, platelet count 428,000. Sodium 139, potassium 4.3, BUN 7, creatinine 0.5, glucose 119, calcium 9.5, bilirubin is less than 0.15, AST 17, ALT 10. CK 78, troponin less than 0.01. ProBNP 381. Albumin 4.4. Amylase 27, lipase 5. Urinalysis negative. INR 0.85, PTT 34.3. ABGs on room air: PH 7.41, pCO2 of 48, PO2 of 44, bicarbonate 27, base excess 4.7, saturation 71%, carboxyhemoglobin 17.2. Lactate 0.9. Chest x-ray: COPD, no acute disease. Pulmonary arteriogram: No acute pulmonary emboli, but there are retained secretions and fluid in the right lower lobe bronchi. Ill-defined infiltrate of inferior right lower lobe related to bronchopneumonia or to aspiration. EKG: Sinus tachycardia, biatrial enlargement, pulse rate is 108, QTc 442. ASSESSMENT AND PLAN: 1. Chronic obstructive pulmonary disease exacerbation with acute on chronic hypoxemic hypercarbic respiratory failure. She will be getting IV steroids, nebulizers, antibiotic coverage, pulmonary toilet. 2. Right lower lobe bronchus pneumonia possibly from aspiration. She has had a dry mouth and difficulties with swallowing, but she also states she does not eat very often. Again, she is on Zosyn to cover for antibiotic. We will get a sputum culture. 3. History of interstitial cystitis. No complaints right now. 4. History of ulcerative colitis. Denies any GI symptoms. 5. Anorexia with weight of 84 pounds. She states this is her lowest. Encouraged diet and eating. 6. Likely with protein-calorie malnutrition, although her albumin level is 4.4. We will do a pre- albumin. This could be partially a cause for her lower extremity edema. We will do nutritional consult as well. 7. Complaints of bilateral lower extremity edema. She will get an echocardiogram. Could be diet for malnutrition related. We will fully evaluate that. There are no murmurs heard on auscultation. Her proBNP is only 381, so we will see what the results of the echo show. Does not appear to be any pulmonary edema on her x-ray. 8. History of chronic back pain and scoliosis with 3 back surgeries for scoliosis. It looks like we just have Tylenol on board for her. She did get a 1-time dose of morphine. 9. Pancreatic insufficiency secondary to calcified spots. It looks like she is on Creon at home, but we are waiting for home medications to be verified. 10. Tobacco abuse. Cessation discussed. 11. Deep venous thrombosis prophylaxis. SCDs. Dictated by NASREEN Huber for Curtis Romano MD Addendum: Patient seen and examined by myself. Agree with NASREEN note. It reflects my assessment and plan. Patient is being admitted to hospital for acute hypoxemic respiratory failure secondary to COPD exacerbation so will start IV antibiotics and Duoneb q4hrs scheduled. Will do echocardiogram considering bilateral LE swelling recently noted. Will monitor patient closely. cc: NASREEN Huber MD [facility]
[2019-04-11] MEDS: SOLU-MEDROL IV SCH (22:20)
[2019-04-11] MEDS: NEURONTIN PO SCH (22:20)
[2019-04-11] MEDS: REMERON PO SCH (22:20)
[2019-04-12] MEDS: NORCO-5 PO PRN ×2 (01:51→05:24)
[2019-04-12] MEDS: DUONEB (A & A) INH SCH ×6 (03:10→23:17)
[2019-04-12] MEDS: TYLENOL PO PRN (03:20)
[2019-04-12] MEDS: SOLU-MEDROL IV SCH ×3 (05:25→21:14)
[2019-04-12 06:01] LABS: BE 7.4 mmoll (-3.0-3.0); BLOOD TYPE ARTERIAL; HCO3-(ACT) 30.6 mmoll (20.0-26.0); METHB 1.7 % (0.0-1.5); O2(CT) 16.5 mL/dL (15.0-23.0); O2HB 92.6 % (95.0-99.0); PCO2(98.6) 44 mmHg (35-45); PO2(98.6) 80 mmHg (60-100); SAMPLE BLOOD; SAO2 95.8 % (95.0-100.0); THB 12.6 g/dL (11.5-17.4); pH(98.6) 7.47 (7.35-7.45)
[2019-04-12 06:06] LABS: MODALITY CANNULA
[2019-04-12 06:07] LABS: ALLEN TEST YES
[2019-04-12 06:24] LABS: HEMATOCRIT 39.1 % (37.0-47.0); HEMOGLOBIN 11.6 g/dL (12.0-16.0); IMM GRAN# 0.01 X1000 (0.0-0.04); IMM GRAN% 0.2 % (0.0-0.5); LYMPH# 1.02 X1000 (1.2-3.4); LYMPH% 20.3 % (20.5-51.1); MCH 27.2 PG (27-31); MCHC 29.7 g/dL (33-37); MCV 91.6 FL (81-99); MONO# 0.11 X1000 (0.11-0.59); MONO% 2.2 % (1.7-9.3); MPV 10.1 FL (7.4-10.4); NEUT# 3.88 X1000 (1.4-6.5); NEUT% 77.3 % (42.2-75.2); PLT 372 X1000 (130-400); RBC 4.27 XMIL (4.2-5.4); RDW 16.1 % (11.5-14.5); WBC 5.02 X1000 (4.8-10.8)
[2019-04-12 07:05] LABS: AGAP 23; ALBUMIN 3.4 g/dL (3.5-5.0); ALKALINE PHOSPHATASE 84 U/L (32-104); BUN 12 mg/dL (8-22); CHLORIDE 99 mmol/L (98-107); COSMO 293; CREATININE 0.4 mg/dL (0.5-0.9); ESTIMATED GFR > 60; GLUCOSE 146 mg/dL (70-104); GOT 18 U/L (10-30); GPT 8 U/L (10-36); MAGNESIUM 1.9 mg/dL (1.5-2.7); POTASSIUM 4.7 mmol/L (3.5-5.1); SODIUM 146 mmol/L (136-145); TCO2 24 mmol/L (25-35); TOTAL BILIRUBIN < 0.15 mg/dL (0.20-1.00); TOTAL PROTEIN 6.7 g/dL (6.3-8.3)
--- NOTE | 2019-04-12 07:44 | PROVIDER DOCUMENTATION ---
This chart was entered by Simona Pearce Scribe, acting as scribe for Tyra Suresh MD. HPI-Respiratory General - General Chief Complaint: Shortness of Breath Stated Complaint: COPD / SOB Time Seen by Provider: 04/11/19 11:43 Source: patient Allergies/Adverse Reactions: Patient Allergies Allergy/AdvReac Type Severity Reaction Status Date / Time amoxicillin trihydrate * Allergy Intermediate RASH Verified 04/11/19 11:05 [From Augmentin] potassium clavulanate * Allergy Intermediate RASH Verified 04/11/19 11:05 [From Augmentin] nitrofurantoin Allergy ITCHING Verified 04/11/19 11:05 [From Macrobid] nitrofurantoin Allergy ITCHING Verified 04/11/19 11:05 macrocrystalline * [From Macrobid] oxybutynin Allergy rash in Verified 04/11/19 11:05 mouth Home Medications: Home Medication List Medication Instructions Recorded Confirmed Last Taken Type Alendronate [Fosamax] 70 mg PO Q7D 09/17/18 04/11/19 03/31/19 09:00 History Fluticasone 50 Mcg Nasal [place] 2 spray INTRANASAL DAILY 09/17/18 04/11/19 04/10/19 09:00 History [Flonase] Lipase/Protease/Amylase [Creon] 72,000 units PO AC 09/17/18 04/11/19 04/10/19 20:00 History Oxybutynin Chloride [Oxybutynin 15 mg PO DAILY 09/20/18 04/11/19 Unknown History Chloride ER] Docusate Sodium [Colace] 200 mg PO QHS cap 10/31/18 04/11/19 Unknown Rx Gabapentin 400 mg PO BID #60 cap 10/31/18 04/11/19 04/10/19 21:00 Rx Nicotine Patch [Nicoderm Patch] 14 mg TD DAILY patch.[id number] 10/31/18 04/11/19 Unknown Rx Acetaminophen [Tylenol] 500 mg PO Q6H PRN 04/11/19 04/11/19 Unknown History Baclofen [Lioresal] 10 mg PO TID 04/11/19 04/11/19 Unknown History Duloxetine HCl 60 mg PO DAILY 04/11/19 04/11/19 04/10/19 09:00 History Hydrocodone/Acetaminophen 7.5 mg PO Q4-6H PRN PRN 04/11/19 04/11/19 Unknown History [Hydrocodone-Acetamin 7.5-325] Mirtazapine [Remeron] 15 mg PO QHS 04/11/19 04/11/19 Unknown History - History of Present Illness-Resp Nature of Presenting Problem: Patient is a 63 year old female who presents with shortness of breath. States shortness of breath has been present for 1 week. History of COPD. Reports she is currently on antibiotics for bronchitis. Quality of Pain: reports: tightness Severity in ED: reports: moderate Onset/Duration: reports: 1 week ago Timing: reports: still present, getting worse Current Respiratory Medication Therapy: Initiated see nurses note Modifying Factors: worse with: exertion Associated Symptoms: reports: shortness of breath Similar Symptoms Previously?: Yes Recently seen or treated by another doctor?: Yes Review of Systems - Adult - REVIEW OF SYSTEMS - ADULT Constitutional: reports: no symptoms reported Eyes: reports: no symptoms reported Ears, Nose, Mouth & Throat: reports: no symptoms reported Cardiovascular: reports: no symptoms reported Respiratory: reports: see HPI, shortness of breath. denies: cough, wheezing Gastrointestinal: reports: no symptoms reported Genitourinary: reports: no symptoms reported Musculoskeletal: reports: see HPI, back pain. denies: muscle aches, neck pain Integumentary: reports: no symptoms reported Neurological: reports: no symptoms reported Psychiatric: reports: no symptoms reported Endocrine: reports: no symptoms reported Hematologic/Lymphatic: reports: no symptoms reported Allergic/Immunologic: reports: no symptoms reported All Other Systems: Reviewed and Negative Past History - Adult - PAST MEDICAL HISTORY-ADULT Review of Records: reports: Old Records Reviewed, Nursing Assessment Review, Medications Reviewed, Social history reviewed & non-contributory. Major Childhood Illnesses: reports: denies history Cardiovascular: reports: HTN Respiratory: reports: asthma, COPD Gastrointestinal: reports: denies history Obstetrical/Gynecological: reports: denies history Genitourinary: reports: denies history Musculoskeletal: reports: chronic pain, intervertebral disc disease, other (scoliosis) Neurological: reports: denies history Psychiatric: reports: anxiety Endocrine/Immune: reports: thyroid disorder Other Conditions: reports: denies history - PRIOR SURGERIES/PROCEDURES Surgical/Procedure History: reports: hernia repair, back/neck (neck) - IMMUNIZATION STATUS Childhood Immunizations: See Nurse Assessment Flu Vaccine: See Nurse Assessment - FAMILY HISTORY Family History: reviewed, not pertinent - SOCIAL HISTORY Smoking: cigarettes, greater than 1 pack/day Provider spent 3-5 mins advising pt. on dangers of tobacco.: Discussed manners to quit use, and f/u contacts for add'l counseling. Substance Use: denies Living Situation: family Physical Exam-General - PHYSICAL EXAM-ADULT Initial Vital Signs Reviewed: Yes - CONSTITUTIONAL General Appearance: mild distress, thin. negative: lethargic - HEAD, EARS, NOSE, MOUTH & THROAT HENMT: normocephalic/atraumatic, moist mucous membranes. negative: angioedema - RESPIRATORY Respiratory: chest non-tender, decreased breath sounds, retractions, increased rate. negative: rhonchi, wheezing - CARDIOVASCULAR Cardiovascular: normal peripheral pulses, tachycardia. negative: systolic murmur - GASTROINTESTINAL (ABDOMEN) Abdominal Exam: normal bowel sounds, non tender, soft. negative: guarding - MUSCULOSKELETAL Extremity: other (1 + pitting edema to bilateral lower extremities). negative: deformity, erythema - SKIN Integumentary: normal color, normal turgor, warm/dry. negative: diaphoresis, rash - NEUROLOGIC Neurologic: grossly normal. negative: aphasia, facial droop - PSYCHIATRIC Psych/Mental Status: normal mood/affect, oriented x 3. negative: anxious Progress - PLAN OF CARE/RESULTS Progress/Plan/Lab Results: Laboratory Results - last 24 hr 04/11/19 04/11/19 04/11/19 11:11 11:24 11:24 WBC 12.16 H RBC 4.79 Hgb 13.6 Hct 43.6 MCV 91.0 MCH 28.4 MCHC 31.2 L RDW Std Deviation 16.6 H Plt Count 428 H MPV 9.9 Immature Gran % (Auto) 0.2 Neut % (Auto) 72.7 Lymph % (Auto) 21.2 [place] % (Auto) 4.2 Eos % (Auto) 1.0 Baso % (Auto) 0.7 Immature Gran # (Auto) 0.02 Neut # (Auto) 8.85 H Lymph # (Auto) 2.58 [place] # (Auto) 0.51 Eos # (Auto) 0.12 Baso # (Auto) 0.08 PT INR PTT (Actin FS) Specimen Type Sample Site pH pCO2 pO2 HCO3 Base Excess Oxyhemoglobin ABG O2 Sat (Calculated) ABG O2 Saturation ABG Carboxyhemoglobin ABG Methemoglobin Abel Test A-a O2 Difference Total Hemoglobin Lactate Blood Gas Modality FiO2 % Sodium 139 Potassium 4.3 Chloride 97 L Carbon Dioxide 29 Anion Gap 13 BUN 7 L Creatinine 0.5 Estimated GFR/1.73 m2 > 60 BUN/Creatinine Ratio 14 Glucose 119 H Calculated Osmolality 277 Calcium 9.5 Total Bilirubin < 0.15 L AST 17 ALT 10 Alkaline Phosphatase 112 H Creatine Kinase 78 Troponin T [id number]-Mpxenkoqzxc Pept Total Protein 7.7 Albumin 4.4 Globulin 3.0 Albumin/Globulin Ratio 1.0 Amylase Lipase Urine Source CLEAN CATCH Urine Color YELLOW Urine Clarity CLEAR Urine pH 7.0 Ur Specific [place] 1.000 Urine Protein NEGATIVE Urine Ketones NEGATIVE Urine Blood NEGATIVE Urine Nitrite NEGATIVE Urine Bilirubin NEGATIVE Urine Urobilinogen NORMAL Urine Microscopic RBC <10 Urine WBC NEGATIVE Urine Microscopic WBC <10 Ur Epithelial Cells <10 Urine Crystals NONE SEEN Urine Bacteria NEGATIVE Urine Casts NONE SEEN Urine Yeast NONE SEEN Urine Glucose NEGATIVE 04/11/19 04/11/19 04/11/19 11:24 11:24 11:24 WBC RBC Hgb Hct MCV MCH MCHC RDW Std Deviation Plt Count MPV Immature Gran % (Auto) Neut % (Auto) Lymph % (Auto) [place] % (Auto) Eos % (Auto) Baso % (Auto) Immature Gran # (Auto) Neut # (Auto) Lymph # (Auto) [place] # (Auto) Eos # (Auto) Baso # (Auto) PT 12.0 INR 0.85 PTT (Actin FS) 34.3 Specimen Type Sample Site pH pCO2 pO2 HCO3 Base Excess Oxyhemoglobin ABG O2 Sat (Calculated) ABG O2 Saturation ABG Carboxyhemoglobin ABG Methemoglobin Abel Test A-a O2 Difference Total Hemoglobin Lactate Blood Gas Modality FiO2 % Sodium Potassium Chloride Carbon Dioxide Anion Gap BUN Creatinine Estimated GFR/1.73 m2 BUN/Creatinine Ratio Glucose Calculated Osmolality Calcium Total Bilirubin AST ALT Alkaline Phosphatase Creatine Kinase Troponin T < 0.010 Sai-X-Wcnsntkatse Pept 381 H Total Protein Albumin Globulin Albumin/Globulin Ratio Amylase Lipase Urine Source Urine Color Urine Clarity Urine pH Ur Specific [place] Urine Protein Urine Ketones Urine Blood Urine Nitrite Urine Bilirubin Urine Urobilinogen Urine Microscopic RBC Urine WBC Urine Microscopic WBC Ur Epithelial Cells Urine Crystals Urine Bacteria Urine Casts Urine Yeast Urine Glucose 04/11/19 04/11/19 04/11/19 11:24 11:24 12:25 WBC RBC Hgb Hct MCV MCH MCHC RDW Std Deviation Plt Count MPV Immature Gran % (Auto) Neut % (Auto) Lymph % (Auto) [place] % (Auto) Eos % (Auto) Baso % (Auto) Immature Gran # (Auto) Neut # (Auto) Lymph # (Auto) [place] # (Auto) Eos # (Auto) Baso # (Auto) PT INR PTT (Actin FS) Specimen Type ARTERIAL Sample Site R RADIAL pH 7.41 pCO2 48 H pO2 44 L* HCO3 27.9 H Base Excess 4.7 H Oxyhemoglobin 71.5 L* ABG O2 Sat (Calculated) 14.2 L ABG O2 Saturation 87.5 L ABG Carboxyhemoglobin 17.20 H* ABG Methemoglobin 1.1 Abel Test YES A-a O2 Difference 46.0 Total Hemoglobin 14.1 Lactate 0.90 Blood Gas Modality ROOM AIR FiO2 % 21.0 Sodium Potassium Chloride Carbon Dioxide Anion Gap BUN Creatinine Estimated GFR/1.73 m2 BUN/Creatinine Ratio Glucose Calculated Osmolality Calcium Total Bilirubin AST ALT Alkaline Phosphatase Creatine Kinase Troponin T Kko-[id number]-Dhgfbtnwrpz Pept Total Protein Albumin Globulin Albumin/Globulin Ratio Amylase 27 Lipase 5 L Urine Source Urine Color Urine Clarity Urine pH Ur Specific [place] Urine Protein Urine Ketones Urine Blood Urine Nitrite Urine Bilirubin Urine Urobilinogen Urine Microscopic RBC Urine WBC Urine Microscopic WBC Ur Epithelial Cells Urine Crystals Urine Bacteria Urine Casts Urine Yeast Urine Glucose Orders Category Date Time Status Admit - [facility] Routine AdmDCTranf 04/11/19 13:59 Active Activity - Up with Assistance ORDERED Care 04/11/19 13:59 Active Cardiac Monitoring DIRECTED Care 04/11/19 11:06 Completed Intake and Output-Strict ORDERED Care 04/11/19 15:33 Active Nursing- Assist w/ IS as order ORDERED Care 04/11/19 15:33 Active Oxygen Therapy- ED Nursing DIRECTED Care 04/11/19 11:06 Completed Saline Loc DIRECTED Care 04/11/19 12:12 Completed Saline Loc NOW Care 04/11/19 11:06 Completed Update & Confirm Home Medicati ROUTINE Care 04/11/19 13:59 Active Vital Signs Order Q 4-HR ASSESS Care 04/11/19 15:33 Active Z-Document. for Tele Applied ORDERED Care 04/11/19 15:33 Completed Social Service Consult Routine Cons 04/11/19 15:33 Active Heart Healthy Diet Diet 04/11/19 13:59 Active NPO Diet 04/11/19 12:12 Completed CHEST-2 VIEWS [RAD] Stat Exams 04/11/19 11:[address] ANGIOGRM PULMONARY ARTERIES [CT] Stat Exams 04/11/19 13:45 Completed ABG [RESP] Routine Lab 04/11/19 12:25 Completed ABG [RESP] Routine Lab 04/12/19 05:38 Completed AMYLASE [CHEM] Stat Lab 04/11/19 11:24 Completed CBC WITH DIFF [HEME] Q24H Lab 04/12/19 05:44 Completed CBC WITH DIFF [HEME] Q24H Lab 04/13/19 06:00 Ordered CBC WITH DIFF [HEME] Q24H Lab 04/14/19 06:00 Ordered CBC WITH DIFF [HEME] Q24H Lab 04/15/19 06:00 Ordered CBC WITH DIFF [HEME] Q24H Lab 04/16/19 06:00 Ordered CBC WITH DIFF [HEME] Q24H Lab 04/17/19 06:00 Ordered CBC WITH DIFF [HEME] Q24H Lab 04/18/19 06:00 Ordered CBC WITH ELECTRONIC DIFF [HEME] Stat Lab 04/11/19 11:24 Completed CK PROFILE [SP CHEM] Stat Lab 04/11/19 11:24 Completed COMPREHENSIVE METABOLIC PANEL [CHEM] Q24H Lab 04/12/19 05:44 Completed COMPREHENSIVE METABOLIC PANEL [CHEM] Q24H Lab 04/13/19 06:00 Ordered COMPREHENSIVE METABOLIC PANEL [CHEM] Q24H Lab 04/14/19 06:00 Ordered COMPREHENSIVE METABOLIC PANEL [CHEM] Q24H Lab 04/15/19 06:00 Ordered COMPREHENSIVE METABOLIC PANEL [CHEM] Q24H Lab 04/16/19 06:00 Ordered COMPREHENSIVE METABOLIC PANEL [CHEM] Q24H Lab 04/17/19 06:00 Ordered COMPREHENSIVE METABOLIC PANEL [CHEM] Q24H Lab 04/18/19 06:00 Ordered COMPREHENSIVE METABOLIC PANEL [CHEM] Stat Lab 04/11/19 11:24 Completed LIPASE [CHEM] Stat Lab 04/11/19 11:24 Completed MAGNESIUM [CHEM] Q24H Lab 04/12/19 05:44 Completed MAGNESIUM [CHEM] Q24H Lab 04/13/19 06:00 Ordered MAGNESIUM [CHEM] Q24H Lab 04/14/19 06:00 Ordered MAGNESIUM [CHEM] Q24H Lab 04/15/19 06:00 Ordered MAGNESIUM [CHEM] Q24H Lab 04/16/19 06:00 Ordered MAGNESIUM [CHEM] Q24H Lab 04/17/19 06:00 Ordered MAGNESIUM [CHEM] Q24H Lab 04/18/19 06:00 Ordered PRO B-NATRIURETIC PEPTIDE Stat Lab 04/11/19 11:24 Completed PROTIME WITH INR [COAG] Stat Lab 04/11/19 11:24 Completed PTT [COAG] Stat Lab 04/11/19 11:24 Completed TROPONIN T Stat Lab 04/11/19 11:24 Completed ua [URINALYSIS PL W/POSS RFLX CULT] [URINALYSIS] Stat Lab 04/11/19 11:11 Completed Acetaminophen [Tylenol] Med 04/11/19 13:59 Active 650 mg PO Q4H PRN PRN Albuterol 2.5MG/Ipratrop 0.5MG [Duoneb (A & A)] Med 04/11/19 12:13 Discontinued 3 ml INH NOW ONE Methylprednisolone Sod Succ [Solu-Medrol] Med 04/11/19 12:14 Discontinued 125 mg IV NOW ONE Morphine Med 04/11/19 12:47 Discontinued 2 mg IV NOW ONE Ondansetron [Zofran] Med 04/11/19 12:47 Discontinued 4 mg IV NOW ONE Ondansetron [Zofran] Med 04/11/19 13:59 Active 4 mg IV Q4H PRN PRN Aerosol Treatments Routine Oth 04/11/19 12:13 Completed Aerosol Treatments Stat Oth 04/11/19 12:13 Completed Incentive Spirometer Routine Oth 04/11/19 15:33 Completed Oxygen Device Routine Oth 04/11/19 15:33 Completed Pulse Oximetry Routine Ot 04/11/19 15:33 Completed Telemetry [OM.EQ] Routine Oth 04/11/19 15:33 Active EKG [EKG] Stat Ther 04/11/19 11:06 Draft Transfer/Admit Order [TRANSFER] Routine Transfer 04/11/19 13:52 Completed Result Diagrams: 04/12/19 05:44 04/12/19 05:44 - EKG 1 Time of EKG reading by physician:: 11:28 EKG Read and Signed by:: Tyra Suresh EKG Interpretation (*Must complete 3 of following elements*): Abnormal Rate: 108 Rhythm: sinus tachycardia [place] Interval: normal Comments: biatrial enlargement; cannot rule out anterior infarct, age undetermined - XRAY 1 XRAY Study: Chest Impression: See EMR Report ( CHEST-2 VIEWS - 04/11/2019 INDICATION: shortness of breath COMPARISON: 10/29/2018 FINDINGS: Lungs are hyperexpanded compatible with COPD. No infiltrates or edema. No pneumothorax or pleural effusion. Heart size and pulmonary vascularity is normal. Stable extensive thoracolumbar spine fusion rods. IMPRESSION: COPD. No acute disease. Electronically signed by Kanu Meeks 04/11/2019 11:56 AM 04/11/19 1156 Interpreting Physician: Kanu Meeks MD Dictated Date/Time: 04/11/19 1154 cc: Tyra Suresh MD; Yoandy Benedict MD) - CT/MRI 1 CT Study: Angiogram (ANGIOGRAM PULMONARY ARTERIES) Impression: See EMR Report ( EXAM: CT ANGIOGRAM PULMONARY ARTERIES - 04/11/2019 HISTORY: suspected PE TECHNIQUE: CT angiogram pulmonary arteries with intravenous contrast. Axial, 2-D coronal MIP, and 3-D MIP images are obtained. COMPARISON: None. FINDINGS: There are no filling defects identified pulmonary arteries. There is no indication of aortic dissection. There are [id number] emphysematous changes. There are a scattered calcified granulomas and there are calcified bilateral hilar and mediastinal lymph nodes from old granulomatous disease. There are retained secretions in pleural fluid and right lower lobe bronchi. There is ill-defined infiltrate at the inferior right lower lobe. This may relate to bronchopneumonia or to aspiration. There is no other consolidation, pleural effusion, or pneumothorax identified. There is scoliosis and spondylosis are changes with metallic hardware noted. IMPRESSION: No evidence of pulmonary embolism. Retained secretions and/or fluid in right lower lobe bronchi. Ill-defined infiltrate at inferior right lower lobe. This may relate to bronchopneumonia or to aspiration. Electro nically signed by Laith Jimenez 04/11/2019 2:31 PM 04/11/19 1431 Interpreting Physician: Laith Jimenez MD Dictated Date/Time: 04/11/19 1424 cc: Curtis Hussein MD; Yoandy Benedict MD) - CONSULTS/PCP/HOSPITALIST Notification #1 *Consult/PCP/Hospitalist*: Dr. Hussein Time Discussed: 13:15 Reason/Comments: Dr. Suresh consulted with Dr. Hussein about patient. Departure - Departure Date of Disposition Decision: 04/11/19 Time of Disposition Decision: 12:30 DIAGNOSIS: Respiratory distress Disposition: ADMITTED INPATIENT 09 Certified Medical Emergency: Emergent Condition: Good - Critical Care Note This patient required my direct & personal management of CC.: No Attestation - Physician/ FRANKIE Attestation Patient care was provided by Advanced Practice Provider:: No The physician spent face to face time with patient:: Yes Advanced Practice Provider documentation review:: Supervising physician onsite and consulted in the evaluation and care of this patient. The physician did have a face to face encounter with the patient. This chart was documented by the indicated scribe, (Simona Pearce Scribe) and accurately reflects the services I performed and decisions made by , Tyra Suresh MD, as attested by the provider's signature.
[2019-04-12] MEDS ORDERED: NORCO-7.5 PO PRN (07:56)
[2019-04-12] MEDS: PULMICORT INH SCH ×2 (08:07→20:03)
[2019-04-12] MEDS: FLONASE NAS SCH (08:45)
[2019-04-12] MEDS: NICODERM PATCH TD SCH (08:46)
[2019-04-12] MEDS: CYMBALTA PO SCH (08:46)
[2019-04-12] MEDS: LIORESAL PO SCH ×3 (08:47→21:13)
[2019-04-12] MEDS ORDERED: LIORESAL PO SCH (09:00)
[2019-04-12] MEDS ORDERED: NICODERM PATCH TD SCH (09:00)
[2019-04-12] MEDS: NEURONTIN PO SCH ×2 (09:31→21:13)
[2019-04-12] MEDS ORDERED: BLISTEX MEDICATED BERRY LIP BALM TOP PRN (13:00)
--- NOTE | 2019-04-12 13:04 | PROGRESS NOTE ---
DATE: 04/12/2019 SUBJECTIVE: The patient reports breathing better. She is shaky because of the breathing treatments. She complains of excruciating back pain. She has history of chronic back pain on chronic opiate medications. OBJECTIVE: Vital Signs: Temperature 98.2 degrees, heart rate 89, respiratory rate 18, blood pressure 133/66 and O2 saturation 96% on 3 L nasal cannula. General: This is a chronically ill- appearing, malnourished 63-year-old female lying in bed in no acute distress. Cardiovascular: S1, S2 heard. No murmurs, gallops, or rubs. Regular rate and rhythm. Respiratory: Decreased breath sounds globally with expiratory wheezing noted in both pulmonary bases. Patient is not using any accessory muscles or having work of breathing. Abdomen: Soft. A little bit distended but nontender to palpation. Bowel sounds present. No organomegaly. Extremities: No clubbing, cyanosis, or edema. Peripheral pulses present in both legs. Neurological: Patient is alert and oriented x3. Moves all 4 extremities. LABORATORY DATA: White cell count 5.02, hemoglobin 11.6, hematocrit 39.1, and platelets 372,000. ABG shows pH 7.37 with pCO2 44, PO2 of 80. BMP is okay. ASSESSMENT AND PLAN: 1. Right lower lobe pneumonia, possible from aspiration. We will continue with Zosyn and breathing treatments. 2. Chronic obstructive pulmonary disease exacerbation secondary to condition 1. We will continue with DuoNeb every 4 hours as scheduled. 3. Protein-calorie malnutrition with prealbumin low. We will continue with regular diet. 4. Bilateral lower extremity edema. Ideally, this patient may have a cor pulmonale secondary to advanced COPD. In any case, we will see what the echocardiogram shows. 5. Severe back pain. We will increase the doses of [place] to 10 q.4 hours p.r.n. and see if that helps this patient. cc: MD BONNIE Ribera
[2019-04-12] MEDS: NORCO-10 PO PRN (13:41)
[2019-04-12] MEDS: DITROPAN XL PO SCH (13:41)
[2019-04-12] MEDS: CREON PO SCH ×5 (13:41→18:18)
[2019-04-12] MEDS: ROCEPHIN 1 GM in NS 50 ML IV SCH (16:11)
[2019-04-12] MEDS: XANAX PO PRN (16:11)
--- NOTE | 2019-04-12 17:56 | ECHO REPORT ---
ORDER DATE: 04/11/2019 INTERPRETING PHYSICIAN: Gadiel Lewis MD INDICATION: Pneumonia and edema. REQUESTING PROVIDER: Keenan at [facility]. The study was extremely difficult. Parasternal views could not be obtained, therefore M-Mode measurements are not available. However, from the subcostal views the left ventricular wall thickness appears to be in the order of 1 cm, which would be consistent with a normal wall thickness, perhaps borderline concentric LVH at the septum. SUMMARY OF 2-DIMENSIONAL IMAGIN. All the views were obtained only from subcostal approach. The left ventricular size and function appears to be normal. Ejection fraction of 65%, that is a visual estimation. 2. The aortic valve appears to be grossly normal. 3. The mitral valve also appears to be grossly normally. 4. The tricuspid valve shows minimal degree of regurgitation. 5. Pulmonary pressure is in the order of 44 mmHg. Pulmonary valve was not visualized. 6. The inferior vena cava is not dilated. It is actually small. 7. Diastolic function may be normal. 8. There is no pericardial effusion, no mass, and no thrombus. CONCLUSIONS: In summary, this study was very difficult. The parasternal and apical views were not available, only subcostal views were available. The left ventricular systolic function is excellent. There is no gross evidence of any valvular abnormality involving the aortic, mitral, and tricuspid valves. Clinical correlation is recommended. cc: MD Taya King CRNP
[2019-04-12] MEDS: REMERON PO SCH (21:13)
[2019-04-12] MEDS: COLACE PO SCH (21:13)
[2019-04-13] MEDS: DUONEB (A & A) INH SCH ×6 (03:31→23:26)
[2019-04-13] MEDS: SOLU-MEDROL IV SCH ×3 (03:53→21:44)
[2019-04-13] MEDS: NORCO-10 PO PRN ×3 (03:54→21:43)
[2019-04-13] MEDS: XANAX PO PRN ×2 (03:55→10:14)
[2019-04-13 06:10] LABS: HEMATOCRIT 39.2 % (37.0-47.0); HEMOGLOBIN 11.5 g/dL (12.0-16.0); IMM GRAN# 0.01 X1000 (0.0-0.04); IMM GRAN% 0.1 % (0.0-0.5); LYMPH# 0.65 X1000 (1.2-3.4); LYMPH% 9.7 % (20.5-51.1); MCH 26.9 PG (27-31); MCHC 29.3 g/dL (33-37); MCV 91.6 FL (81-99); MPV 10.2 FL (7.4-10.4); NEUT# 5.83 X1000 (1.4-6.5); NEUT% 87.2 % (42.2-75.2); PLT 359 X1000 (130-400); RBC 4.28 XMIL (4.2-5.4); RDW 16.1 % (11.5-14.5); WBC 6.69 X1000 (4.8-10.8)
[2019-04-13 06:40] LABS: AGAP 10; ALBUMIN 3.2 g/dL (3.5-5.0); ALKALINE PHOSPHATASE 71 U/L (32-104); BUN 18 mg/dL (8-22); CALCIUM 9.1 mg/dL (8.8-10.2); CHLORIDE 100 mmol/L (98-107); COSMO 284; CREATININE 0.4 mg/dL (0.5-0.9); ESTIMATED GFR > 60; GLUCOSE 140 mg/dL (70-104); GOT 13 U/L (10-30); GPT 9 U/L (10-36); MAGNESIUM 1.9 mg/dL (1.5-2.7); POTASSIUM 4.5 mmol/L (3.5-5.1); SODIUM 140 mmol/L (136-145); TCO2 31 mmol/L (25-35); TOTAL BILIRUBIN < 0.15 mg/dL (0.20-1.00); TOTAL PROTEIN 6.4 g/dL (6.3-8.3)
[2019-04-13 07:12] LABS: ANISOCYTOSIS 1+; HYPOCHROM 1+; LYMPHS 8 % (21-51); SEGS 92 % (42-75)
[2019-04-13 07:13] LABS: BURR CELLS 1+; POIKILOCYTOSIS 2+; TARGET CELLS 1+
[2019-04-13] MEDS: PULMICORT INH SCH ×2 (08:23→19:51)
[2019-04-13] MEDS: CREON PO SCH ×6 (08:53→17:43)
[2019-04-13] MEDS: CYMBALTA PO SCH (08:55)
[2019-04-13] MEDS: FLONASE NAS SCH (08:55)
[2019-04-13] MEDS: LIORESAL PO SCH ×3 (08:56→21:44)
[2019-04-13] MEDS: DITROPAN XL PO SCH (08:56)
[2019-04-13] MEDS: NICODERM PATCH TD SCH (08:56)
[2019-04-13] MEDS: NEURONTIN PO SCH ×2 (08:56→21:44)
--- NOTE | 2019-04-13 10:05 | PROGRESS NOTE ---
DATE: 04/13/2019 SUBJECTIVE: The patient denies having any acute complaints. She feels somewhat better as compared to when she came into the hospital. OBJECTIVE: Vital Signs: Temperature 97.7 degrees, pulse 74 per minute, respiratory rate 18 per minute, blood pressure 117/57, pulse oximetry 97% on 3.5 L of oxygen via nasal cannula. General: Patient is alert and oriented x3. She appears to be slightly tachypneic at times. Cardiovascular System: First and second heart sounds are audible without any murmurs or gallops. Respiratory System: Bilateral lung air entry is moderately decreased with no rales or rhonchi present on auscultation. Gastrointestinal System: Abdomen is soft and nondistended. Normal bowel sounds are present. DIAGNOSTIC DATA: CBC shows hemoglobin of 11.5 and hematocrit 39.2. Rest of the CBC is nondiagnostic. In comparison, her hemoglobin and hematocrit were 11.6 and 39.1 yesterday. Comprehensive metabolic panel done this morning showed glucose levels of 140. Rest of the CMP is nondiagnostic. IMPRESSION: 1. Right lower lobe pneumonia with acute hypoxemic respiratory failure. 2. Acute chronic obstructive pulmonary disease exacerbation. 3. Protein calorie malnutrition. PLAN: We will continue the patient on IV ceftriaxone along with IV methylprednisolone. We will continue with bronchodilators via nebulization and give her supplemental oxygen. We will also continue giving her supportive care and follow hospital course. cc: Karlo Xavier MD
[2019-04-13] MEDS: TYLENOL PO PRN (10:14)
[2019-04-13] MEDS: ROCEPHIN 1 GM in NS 50 ML IV SCH (14:39)
[2019-04-13] MEDS: COLACE PO SCH (21:43)
[2019-04-13] MEDS: REMERON PO SCH (21:44)
[2019-04-14] MEDS: DUONEB (A & A) INH SCH ×6 (03:03→22:38)
[2019-04-14] MEDS: SOLU-MEDROL IV SCH ×3 (03:25→20:17)
[2019-04-14] MEDS: XANAX PO PRN ×2 (03:27→12:18)
[2019-04-14] MEDS: NORCO-10 PO PRN ×4 (06:04→22:10)
[2019-04-14 06:22] LABS: BE 10.3 mmoll (-3.0-3.0); BLOOD TYPE ARTERIAL; HCO3-(ACT) 32.8 mmoll (20.0-26.0); METHB 0.9 % (0.0-1.5); O2(CT) 17.2 mL/dL (15.0-23.0); O2HB 92.3 % (95.0-99.0); PO2(98.6) 72 mmHg (60-100); SAMPLE BLOOD; SAO2 94.2 % (95.0-100.0); THB 13.2 g/dL (11.5-17.4); pH(98.6) 7.37 (7.35-7.45)
[2019-04-14 06:29] LABS: PCO2(98.6) 66 mmHg (35-45)
[2019-04-14 06:30] LABS: ALLEN TEST YES; MODALITY CANNULA
[2019-04-14 06:40] LABS: HEMATOCRIT 39.6 % (37.0-47.0); HEMOGLOBIN 11.5 g/dL (12.0-16.0); IMM GRAN# 0.01 X1000 (0.0-0.04); IMM GRAN% 0.1 % (0.0-0.5); LYMPH# 0.55 X1000 (1.2-3.4); LYMPH% 6.5 % (20.5-51.1); MCH 26.9 PG (27-31); MCV 92.5 FL (81-99); MONO# 0.13 X1000 (0.11-0.59); MONO% 1.5 % (1.7-9.3); MPV 10.3 FL (7.4-10.4); NEUT# 7.77 X1000 (1.4-6.5); NEUT% 91.9 % (42.2-75.2); PLT 324 X1000 (130-400); RBC 4.28 XMIL (4.2-5.4); RDW 16.1 % (11.5-14.5); WBC 8.46 X1000 (4.8-10.8)
[2019-04-14 06:48] LABS: AGAP 9; ALBUMIN 3.3 g/dL (3.5-5.0); ALKALINE PHOSPHATASE 65 U/L (32-104); BUN 15 mg/dL (8-22); CALCIUM 9.1 mg/dL (8.8-10.2); CHLORIDE 97 mmol/L (98-107); COSMO 279; CREATININE 0.4 mg/dL (0.5-0.9); ESTIMATED GFR > 60; GLUCOSE 168 mg/dL (70-104); GOT 18 U/L (10-30); GPT 13 U/L (10-36); MAGNESIUM 1.8 mg/dL (1.5-2.7); POTASSIUM 4.8 mmol/L (3.5-5.1); SODIUM 137 mmol/L (136-145); TCO2 32 mmol/L (25-35); TOTAL BILIRUBIN < 0.15 mg/dL (0.20-1.00); TOTAL PROTEIN 6.3 g/dL (6.3-8.3)
[2019-04-14 07:07] LABS: ANISOCYTOSIS 1+; LYMPHS 4 % (21-51); MONO 2 % (1-9); SEGS 94 % (42-75)
[2019-04-14 07:08] LABS: HYPOCHROM 2+; MICROCYTOSIS OCCASIONAL; POIKILOCYTOSIS 2+; TARGET CELLS 1+
[2019-04-14 07:09] LABS: STOMATOCYTES 1+
--- NOTE | 2019-04-14 07:17 | Diag Imaging Result Doc PS360 ---
EXAM: CHEST-PORTABLE 04/14/2019 HISTORY: Pneumonia TECHNIQUE: AP portable at 0631 COMMENT: There are numerous small scattered calcified granulomata. The heart size and pulmonary vascularity are within normal limits. Compared to 04/11/2019 considering differences in inspiration there has been no significant change. IMPRESSION: No evidence of acute disease. Electronically signed by David Richardson 04/14/2019 7:15 AM
[2019-04-14] MEDS: PULMICORT INH SCH ×2 (07:54→19:56)
[2019-04-14] MEDS ORDERED: FOSAMAX PO SCH (08:00)
[2019-04-14] MEDS: DITROPAN XL PO SCH (08:01)
[2019-04-14] MEDS: NEURONTIN PO SCH ×2 (08:01→20:17)
[2019-04-14] MEDS: CYMBALTA PO SCH (08:02)
[2019-04-14] MEDS: NICODERM PATCH TD SCH (08:02)
[2019-04-14] MEDS: LIORESAL PO SCH ×3 (08:02→20:17)
[2019-04-14] MEDS: CREON PO SCH ×6 (08:03→16:49)
[2019-04-14] MEDS: FLONASE NAS SCH (08:13)
[2019-04-14] MEDS: ROCEPHIN 1 GM in NS 50 ML IV SCH ×2 (14:17→16:49)
--- NOTE | 2019-04-14 15:14 | PROGRESS NOTE ---
DATE: 04/14/2019 SUBJECTIVE: Patient reports breathing better, denies any fever, chills. OBJECTIVE: Vitals: Temperature 99.1 degrees, heart rate 102, respiratory 23, blood pressure 139/68, O2 saturation 97% on 2 L nasal cannula. General: This is a chronically ill appearing and frail and malnourished 63-year-old female lying in bed in no acute distress. Cardiovascular: S1, S2 heard. No murmurs, gallops, or rubs. Regular rate and rhythm. Respiratory: Decreased breath sounds globally with minimal wheezing in both pulmonary bases. Patient not using any accessory muscles or having work of breathing. Abdomen: Soft, nontender to palpation, bowel sounds present. No organomegaly. Extremities: No clubbing, cyanosis, or edema. Peripheral pulses present in both legs. Neurologic: Patient alert, oriented x3. Moves 4 extremities. LABORATORY DATA: Reviewed. ASSESSMENT AND PLAN: 1. Acute hypoxemic respiratory failure secondary to right lower lobe pneumonia. 2. Acute hypercarbic respiratory failure. 3. Chronic obstructive pulmonary disease exacerbation. 4. Protein-calorie malnutrition. PLAN: At this point patient is clinically stable, will continue with IV antibiotics and IV fluids. the CO2 is elevated, I think at this point will provide Bipap at night tonight and then will check ABG tomorrow. If that is much more improved will consider continue her treatment as an outpatient. cc: Curtis Romano MD MTDD
[2019-04-14] MEDS: COLACE PO SCH (20:17)
[2019-04-14] MEDS: REMERON PO SCH (20:17)
[2019-04-15] MEDS: DUONEB (A & A) INH SCH ×6 (03:30→22:34)
[2019-04-15] MEDS: XANAX PO PRN ×2 (03:44→13:34)
[2019-04-15] MEDS: SOLU-MEDROL IV SCH ×3 (04:04→20:24)
[2019-04-15 06:03] LABS: BE 14.1 mmoll (-3.0-3.0); BLOOD TYPE ARTERIAL; HCO3-(ACT) 35.9 mmoll (20.0-26.0); METHB 1.3 % (0.0-1.5); O2(CT) 17.2 mL/dL (15.0-23.0); O2HB 94.3 % (95.0-99.0); PO2(98.6) 89 mmHg (60-100); SAMPLE BLOOD; SAO2 96.4 % (95.0-100.0); THB 12.9 g/dL (11.5-17.4); pH(98.6) 7.41 (7.35-7.45)
[2019-04-15 06:08] LABS: ALLEN TEST YES; MODALITY CANNULA; PCO2(98.6) 66 mmHg (35-45)
[2019-04-15 06:29] LABS: HEMATOCRIT 39.9 % (37.0-47.0); HEMOGLOBIN 11.9 g/dL (12.0-16.0); IMM GRAN# 0.01 X1000 (0.0-0.04); IMM GRAN% 0.1 % (0.0-0.5); LYMPH# 1.17 X1000 (1.2-3.4); LYMPH% 13.3 % (20.5-51.1); MCH 27.4 PG (27-31); MCHC 29.8 g/dL (33-37); MCV 91.7 FL (81-99); MONO# 0.72 X1000 (0.11-0.59); MONO% 8.2 % (1.7-9.3); MPV 10.2 FL (7.4-10.4); NEUT# 6.88 X1000 (1.4-6.5); NEUT% 78.4 % (42.2-75.2); PLT 336 X1000 (130-400); RBC 4.35 XMIL (4.2-5.4); RDW 16.2 % (11.5-14.5); WBC 8.78 X1000 (4.8-10.8)
[2019-04-15 06:46] LABS: AGAP 10; ALBUMIN 3.7 g/dL (3.5-5.0); ALKALINE PHOSPHATASE 64 U/L (32-104); BUN 18 mg/dL (8-22); CALCIUM 9.5 mg/dL (8.8-10.2); CHLORIDE 94 mmol/L (98-107); COSMO 279; CREATININE 0.3 mg/dL (0.5-0.9); ESTIMATED GFR > 60; GLUCOSE 118 mg/dL (70-104); GOT 19 U/L (10-30); GPT 18 U/L (10-36); MAGNESIUM 1.8 mg/dL (1.5-2.7); POTASSIUM 4.7 mmol/L (3.5-5.1); SODIUM 138 mmol/L (136-145); TCO2 33 mmol/L (25-35); TOTAL BILIRUBIN < 0.15 mg/dL (0.20-1.00); TOTAL PROTEIN 6.6 g/dL (6.3-8.3)
[2019-04-15] MEDS: CYMBALTA PO SCH ×2 (07:54→08:09)
[2019-04-15] MEDS: NEURONTIN PO SCH ×3 (07:54→20:25)
[2019-04-15] MEDS: DITROPAN XL PO SCH ×2 (07:54→08:09)
[2019-04-15] MEDS: CREON PO SCH ×7 (07:54→16:08)
[2019-04-15] MEDS: LIORESAL PO SCH ×4 (07:54→22:27)
[2019-04-15] MEDS: NICODERM PATCH TD SCH ×2 (07:55→08:09)
[2019-04-15] MEDS: PULMICORT INH SCH ×2 (08:14→19:54)
[2019-04-15] MEDS: NORCO-10 PO PRN ×4 (08:38→22:48)
[2019-04-15] MEDS: FLONASE NAS SCH (08:38)
--- NOTE | 2019-04-15 12:13 | PROGRESS NOTE ---
DATE: 04/15/2019 SUBJECTIVE: The patient reports feeling fine. Denies any fever or chills. OBJECTIVE: Vital Signs: Temperature 98.1 degrees, heart rate 63, respiratory rate 18, blood pressure 139/65, O2 saturation 99% 3 L nasal cannula. General: This is a chronically ill- appearing, 63-year-old female, lying in bed in no acute distress. Cardiovascular: S1, S2 heard. No murmurs, gallops, or rubs. Regular rate and rhythm. Respiratory: Decreased breath sounds globally, with minimal wheezing in both pulmonary bases. The patient is not using any accessory muscles or having work of breathing. Abdomen: Soft, nontender to palpation. Bowel sounds present. No organomegaly. Extremities: No clubbing, cyanosis, or edema. Peripheral pulses present in both legs. Neurological: The patient is alert and oriented. ASSESSMENT AND PLAN: 1. Acute hypercapnic hypoxemic respiratory failure secondary to right lower lobe pneumonia. Will continue intravenous antibiotics, oxygen supplementation, and DuoNebs every 4 hours. Will start bilevel positive airway pressure on this patient, and check ABG tomorrow. If that number is better, I think she should be able to be discharged. 2. Chronic obstructive pulmonary disease exacerbation. Will continue with DuoNeb and intravenous steroids and antibiotics. 3. Protein-calorie malnutrition. Will continue with Ensure shakes. 4. Disposition. I think if her numbers are looking better tomorrow, she can be discharged. cc: Curtis Romano MD MTDD
[2019-04-15] MEDS: ROCEPHIN 1 GM in NS 50 ML IV SCH (15:19)
[2019-04-15] MEDS: COLACE PO SCH (20:25)
[2019-04-15] MEDS: REMERON PO SCH (20:25)
[2019-04-16] MEDS: DUONEB (A & A) INH SCH ×6 (03:07→23:04)
[2019-04-16] MEDS: SOLU-MEDROL IV SCH ×3 (04:06→20:40)
[2019-04-16] MEDS: XANAX PO PRN ×3 (04:07→20:40)
[2019-04-16 06:15] LABS: BE 14.9 mmoll (-3.0-3.0); BLOOD TYPE ARTERIAL; HCO3-(ACT) 36.4 mmoll (20.0-26.0); METHB 1.3 % (0.0-1.5); O2(CT) 17.7 mL/dL (15.0-23.0); O2HB 93.5 % (95.0-99.0); PO2(98.6) 89 mmHg (60-100); SAMPLE BLOOD; SAO2 95.5 % (95.0-100.0); THB 13.4 g/dL (11.5-17.4); pH(98.6) 7.44 (7.35-7.45)
[2019-04-16 06:23] LABS: MODALITY CANNULA; PCO2(98.6) 62 mmHg (35-45)
[2019-04-16 06:24] LABS: ALLEN TEST YES
[2019-04-16 06:30] LABS: EOS# 0.01 X1000 (0.0-0.7); EOS% 0.1 % (0.0-10.0); HEMATOCRIT 40.5 % (37.0-47.0); HEMOGLOBIN 12.1 g/dL (12.0-16.0); IMM GRAN# 0.01 X1000 (0.0-0.04); IMM GRAN% 0.1 % (0.0-0.5); LYMPH# 1.45 X1000 (1.2-3.4); LYMPH% 17.8 % (20.5-51.1); MCH 27.1 PG (27-31); MCHC 29.9 g/dL (33-37); MCV 90.6 FL (81-99); MONO# 0.83 X1000 (0.11-0.59); MONO% 10.2 % (1.7-9.3); MPV 10.1 FL (7.4-10.4); NEUT# 5.83 X1000 (1.4-6.5); NEUT% 71.8 % (42.2-75.2); PLT 341 X1000 (130-400); RBC 4.47 XMIL (4.2-5.4); RDW 16.3 % (11.5-14.5); WBC 8.13 X1000 (4.8-10.8)
[2019-04-16 06:59] LABS: AGAP 10; ALBUMIN 3.9 g/dL (3.5-5.0); ALKALINE PHOSPHATASE 65 U/L (32-104); BUN 22 mg/dL (8-22); CALCIUM 9.6 mg/dL (8.8-10.2); CHLORIDE 91 mmol/L (98-107); COSMO 278; CREATININE 0.3 mg/dL (0.5-0.9); ESTIMATED GFR > 60; GLUCOSE 110 mg/dL (70-104); GOT 20 U/L (10-30); GPT 28 U/L (10-36); POTASSIUM 4.4 mmol/L (3.5-5.1); SODIUM 137 mmol/L (136-145); TCO2 36 mmol/L (25-35); TOTAL BILIRUBIN < 0.15 mg/dL (0.20-1.00); TOTAL PROTEIN 6.8 g/dL (6.3-8.3)
[2019-04-16] MEDS: PULMICORT INH SCH ×2 (07:42→19:34)
[2019-04-16] MEDS: CREON PO SCH ×6 (08:27→16:31)
[2019-04-16] MEDS: NICODERM PATCH TD SCH (08:29)
[2019-04-16] MEDS: LIORESAL PO SCH ×3 (08:30→20:40)
[2019-04-16] MEDS: DITROPAN XL PO SCH (08:30)
[2019-04-16] MEDS: CYMBALTA PO SCH (08:31)
[2019-04-16] MEDS: NEURONTIN PO SCH ×2 (08:31→20:40)
[2019-04-16] MEDS: FLONASE NAS SCH (08:31)
[2019-04-16] MEDS: MYCOSTATIN SUSP PO SCH ×4 (08:41→20:39)
[2019-04-16] MEDS: NORCO-10 PO PRN ×4 (08:41→20:40)
[2019-04-16] MEDS: ROCEPHIN 1 GM in NS 50 ML IV SCH (16:30)
--- NOTE | 2019-04-16 20:24 | PROGRESS NOTE ---
DATE: 04/16/2019 SUBJECTIVE: Patient notes that she is feeling a little bit better this morning. She did have some cough and congestion last night. Denies any fevers or chills. Notes she did require BiPAP last night. PHYSICAL EXAMINATION: Vital Signs: Reviewed. She is afebrile. Temperature 97 degrees, pulse 100, respiratory 14, BP 148/67. General: Patient is a very frail appearing female who appears much older than her stated age of 63. She is currently in mild respiratory distress, but this actually is her baseline. HEENT: Normocephalic. Neck: Supple. Cardiovascular: Tachycardia. No murmurs. Chest: Markedly decreased bilaterally with minimal wheezing. No crackles. Abdomen: Soft, nondistended. Extremities: Moves all extremities. ASSESSMENT: 1. Acute on chronic hypoxic hypercapnic respiratory failure. 2. Right lower lobe pneumonia. 3. Chronic obstructive pulmonary disease, end-stage, with mild exacerbation. 4. Metabolic alkalosis secondary to metabolic acidosis. 5. Severe protein-calorie malnutrition. PLAN: 1. We are going to continue patient in the hospital today. 2. Continue antibiotics. 3. May need to add atypical coverage if she does not improve. 4. She did require BiPAP last night. We are going to try to wean this off if at all possible. 5. Continue Solu-Medrol. 6. Will follow. Hopefully, patient will continue to improve and she can be discharged home soon. cc: Rodríguez Verde MD
[2019-04-16] MEDS: REMERON PO SCH (20:40)
[2019-04-16] MEDS: COLACE PO SCH (20:40)
[2019-04-17] MEDS: DUONEB (A & A) INH SCH ×6 (03:30→23:52)
[2019-04-17] MEDS: SOLU-MEDROL IV SCH ×3 (04:41→20:07)
[2019-04-17] MEDS: NORCO-10 PO PRN ×4 (04:41→18:41)
[2019-04-17 05:47] LABS: HEMATOCRIT 40.8 % (37.0-47.0); HEMOGLOBIN 12.4 g/dL (12.0-16.0); IMM GRAN# 0.02 X1000 (0.0-0.04); IMM GRAN% 0.2 % (0.0-0.5); LYMPH% 15.9 % (20.5-51.1); MCH 27.2 PG (27-31); MCHC 30.4 g/dL (33-37); MCV 89.5 FL (81-99); MONO# 0.56 X1000 (0.11-0.59); MONO% 5.6 % (1.7-9.3); MPV 10.4 FL (7.4-10.4); NEUT# 7.87 X1000 (1.4-6.5); NEUT% 78.3 % (42.2-75.2); PLT 340 X1000 (130-400); RBC 4.56 XMIL (4.2-5.4); RDW 16.1 % (11.5-14.5); WBC 10.05 X1000 (4.8-10.8)
[2019-04-17] MEDS: XANAX PO PRN ×3 (06:05→20:14)
[2019-04-17 06:12] LABS: AGAP 12; ALBUMIN 3.8 g/dL (3.5-5.0); ALKALINE PHOSPHATASE 60 U/L (32-104); BUN 23 mg/dL (8-22); CALCIUM 9.6 mg/dL (8.8-10.2); CHLORIDE 94 mmol/L (98-107); COSMO 279; CREATININE 0.3 mg/dL (0.5-0.9); ESTIMATED GFR > 60; GLUCOSE 132 mg/dL (70-104); GOT 20 U/L (10-30); GPT 33 U/L (10-36); MAGNESIUM 1.9 mg/dL (1.5-2.7); POTASSIUM 4.6 mmol/L (3.5-5.1); SODIUM 137 mmol/L (136-145); TCO2 32 mmol/L (25-35); TOTAL PROTEIN 6.9 g/dL (6.3-8.3)
[2019-04-17] MEDS: DITROPAN XL PO SCH ×2 (07:55→08:11)
[2019-04-17] MEDS: LIORESAL PO SCH ×4 (07:56→20:07)
[2019-04-17] MEDS: NICODERM PATCH TD SCH ×2 (07:56→08:13)
[2019-04-17] MEDS: CREON PO SCH ×6 (07:56→17:38)
[2019-04-17] MEDS: CYMBALTA PO SCH ×2 (07:56→08:11)
[2019-04-17] MEDS: NEURONTIN PO SCH ×3 (07:56→20:07)
[2019-04-17] MEDS: MYCOSTATIN SUSP PO SCH ×5 (07:56→20:07)
[2019-04-17] MEDS: FLONASE NAS SCH (08:12)
[2019-04-17] MEDS: PULMICORT INH SCH ×2 (08:59→19:48)
[2019-04-17] MEDS: ROCEPHIN 1 GM in NS 50 ML IV SCH (14:42)
[2019-04-17] MEDS: REMERON PO SCH (20:07)
[2019-04-17] MEDS: COLACE PO SCH (20:07)
--- NOTE | 2019-04-17 22:43 | PROGRESS NOTE ---
DATE: 04/17/2019 SUBJECTIVE: Patient notes that she is starting to feel a lot better. Still having some cough and congestion, but her overall wheezing, shortness of breath and respiratory status appear very close to her baseline. PHYSICAL EXAM: Vital signs: Temperature 98 degrees, pulse 100, respiratory 18, BP 135/68. General: Patient is awake, alert, currently in no respiratory distress. Very pleasant. HEENT: Normocephalic. Neck: Supple. Cardiovascular: Regular rate. Chest: Decreased, but equal breath sounds. Mild wheezing throughout. No crackles. No rhonchi. Abdomen: Soft, nondistended, nontender. Extremities: Moves all extremities. ASSESSMENT: 1. Acute hypercapnic hypoxic failure. 2. Acute hypoxic respiratory failure. 3. Right lower lobe pneumonia. 4. Respiratory acidosis with compensatory metabolic alkalosis. 5. Chronic obstructive pulmonary disease with exacerbation. 6. Protein-calorie malnutrition. PLAN: We will continue patient in the hospital today. Continue antibiotics. We will decrease Solu-Medrol to 40 q.12h. If she tolerates, hopefully she can be discharged home tomorrow. cc: Rodríguez Verde MD
[2019-04-18] MEDS: DUONEB (A & A) INH SCH ×3 (04:05→11:56)
[2019-04-18] MEDS: NORCO-10 PO PRN ×2 (04:16→12:54)
[2019-04-18] MEDS: XANAX PO PRN ×2 (06:55→15:15)
[2019-04-18] MEDS: CREON PO SCH ×4 (06:56→12:56)
[2019-04-18] MEDS: PULMICORT INH SCH (07:30)
[2019-04-18] MEDS ORDERED: OMNICEF PO SCH (09:00)
[2019-04-18] MEDS: MYCOSTATIN SUSP PO SCH ×2 (09:19→15:15)
[2019-04-18] MEDS: NEURONTIN PO SCH (09:21)
[2019-04-18] MEDS: DITROPAN XL PO SCH (09:21)
[2019-04-18] MEDS: NICODERM PATCH TD SCH (09:21)
[2019-04-18] MEDS: LIORESAL PO SCH ×2 (09:21→15:15)
[2019-04-18] MEDS: CYMBALTA PO SCH (09:21)
[2019-04-18] MEDS: SOLU-MEDROL IV SCH (09:22)
[2019-04-18] MEDS: FLONASE NAS SCH (09:22)
[2019-04-18 12:26] VITALS: BP 149/62
[2019-04-18] MEDS ORDERED: PNEUMOVAX 23 IM ONE (15:03)
[2019-04-18] MEDS ORDERED: FLU VACCINE IM ONE (15:03)
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
--- NOTE | 2019-04-18 20:03 | DISCHARGE SUMMARY ---
ADMISSION DATE: 04/11/2019 DISCHARGE DATE: 04/18/2019 CONSULTATIONS: None. PERTINENT PROCEDURES: 1. Pulmonary arteriogram: No evidence of PE. 2. Chest x-ray: COPD DISCHARGE DIAGNOSES: 1. Acute hypercapnic hypoxic respiratory failure improved. 2. Acute hypoxemic respiratory failure improved. Patient will be going home with home O2. 3. Right lower lobe pneumonia. The patient will be discharged home on Omnicef for 4 more days. 4. Chronic obstructive pulmonary disease exacerbation. The patient will be discharged home with a Medrol Dosepak. He did believe she is nearing the end stages of her chronic obstructive pulmonary disease. We did try to get her to speak with palliative care. She was not interested initially and interested in home health. However, she is going to need home O2 for which the social services manager are working on prior to her discharge. 5. Respiratory acidosis with compensation metabolic alkalosis. 6. Protein calorie malnutrition. Patient is encouraged to eat all meals and drink Ensure. HOSPITAL COURSE: Briefly, Ms. Mcnulty is a 63-year-old female with past medical history of end-stage COPD, comes in with a 2 to 3 week history of shortness of breath, being treated for bronchitis by Dr. Benedict. She is currently on 2nd antibiotic of doxycycline. She reported an increase in her shortness of breath, fever, chills, and a greenish yellow phlegm that had productively gotten worse. She came today to the ED to be evaluated. She underwent a CTA of the chest, which ruled out PE, but showed a right lower lobe pneumonia. She was admitted for COPD exacerbation, right lower lobe pneumonia and acute on chronic hypercapnic hypoxemic respiratory failure. She has received treatment for her COPD and pneumonia throughout her hospitalization. She will need to go home with home O2. She has improved and is back to her baseline and will be discharged home today. VITAL SIGNS: Temperature is 97.9 degrees, heart rate 92, respirations 16, blood pressure 131/64, O2 is 100% on 3 L nasal cannula. DIET: Regular with Ensure t.i.d. HOME MEDICATIONS: 1. Remeron 15 mg p.o. at bedtime. 2. Creon 79296 units p.o. before meals. 3. Cymbalta 60 mg p.o. daily. 4. Flonase 2 sprays nasally daily. 5. Fosamax 70 mg p.o. 7 days. 6. [place] 7.5/325 p.o. q.4 to q.6 hours p.r.n. pain. 7. Baclofen 10 mg p.o. t.i.d. 8. Ditropan XL 15 mg p.o. daily. 9. Tylenol 500 mg p.o. q.6 hours p.r.n. 10. Colace 200 mg p.o. at bedtime. 11. Gabapentin 400 mg p.o. b.i.d. 12. Medrol Dosepak 4 mg p.o. as directed x1 package. 13. Nicotine patch 4 mg TD daily. 14. Omnicef 300 mg p.o. b.i.d. for 8 capsules. FOLLOW-UP INSTRUCTIONS: Ms. Mcnulty is being discharged home at this time and being evaluated for home O2. She is in the end stages of her COPD. We did try to have her speak with palliative care. However, she was not interested initially and interested in home health, but she will need DME if qualified for home O2. DISCHARGE INSTRUCTIONS: She is take all medications as prescribed. She can return to the ED or call 911 for any worsening of symptoms. Dictated by NASREEN Kunz for Rodríguez Verde MD cc: MD Yoandy Hancock MD
--- NOTE | 2019-04-20 04:44 | DISCHARGE SUMMARY ---
ADMISSION DATE: 04/11/2019 DISCHARGE DATE: 04/18/2019 DISCHARGE DIAGNOSES: 1. Acute hypercapnic respiratory failure on chronic, improved back to baseline. 2. Acute hypoxic respiratory failure on chronic, improved back to baseline. 3. Right lower lobe pneumonia, improved. 4. Chronic obstructive pulmonary disease with exacerbation. 5. Severe protein calorie malnutrition. 6. Chronic opiate use due to chronic pain. 7. Chronic benzodiazepine use. 8. Longstanding history of smoking although states she is not smoking currently. CONSULTATIONS: None. PROCEDURES: None. BRIEF HOSPITAL COURSE: The patient is a 63-year-old female who presented to the hospital. Placed on oxygen, antibiotics, breathing treatments and high-dose steroids. Steroids were weaned over the next several days. The patient continued to improve. On discharge, she is back to her baseline status although she does have severe end-stage COPD that is unlikely to resolve or improve. DISPOSITION: The patient will be discharged home. She initially declined to go home because she stated that she was out of her pain medications and could not get an appointment with her doctor for another day or so. We did discuss with her that we were not going to write her pain medications given her severe COPD. All opiates could bring about the end of her life. Discussed that she has been in the hospital for a couple of days and has not been taking her home dosing. Therefore, she should not actually be out of medications from home. She finally did decide that she would go home, that she had enough until she can get in with her doctor. She will be discharged with antibiotics, steroid tapering Dosepak. She has breathing treatments at home. No other changes made on her chronic home medications. TIME: Greater than 30 minutes was spent in total care. cc: Rodríguez Verde MD
== END 2019-04-18 16:13 | disposition home or self-care (01) | DRG 177 ==
LOC: P.ED 10:54 → P.MEDSURG 15:04 → SUATTDRO 15:04
PROVIDERS: ATTEND Family Medicine

== ENCOUNTER 2019-05-08 21:27 | Observation (INO) ==
[2019-05-08] MEDS ORDERED: DUONEB (A & A) INH ONE (21:53)
[2019-05-08 22:23] LABS: BASO# 0.04 X1000 (0.0-0.2); BASO% 0.6 % (0.0-0.8); EOS# 0.15 X1000 (0.0-0.7); EOS% 2.4 % (0.0-10.0); HEMATOCRIT 36.4 % (37.0-47.0); HEMOGLOBIN 11.1 g/dL (12.0-16.0); IMM GRAN# 0.03 X1000 (0.0-0.04); IMM GRAN% 0.5 % (0.0-0.5); LYMPH# 1.18 X1000 (1.2-3.4); LYMPH% 18.9 % (20.5-51.1); MCH 27.4 PG (27-31); MCHC 30.5 g/dL (33-37); MCV 89.9 FL (81-99); MONO# 0.71 X1000 (0.11-0.59); MONO% 11.4 % (1.7-9.3); MPV 8.6 FL (7.4-10.4); NEUT# 4.12 X1000 (1.4-6.5); NEUT% 66.2 % (42.2-75.2); PLT 328 X1000 (130-400); RBC 4.05 XMIL (4.2-5.4); RDW 19.1 % (11.5-14.5); WBC 6.23 X1000 (4.8-10.8)
[2019-05-08 22:29] LABS: URINE SOURCE CLEAN CATCH
[2019-05-08 22:38] LABS: BILIRUBIN URINE SMALL (NEGATIVE); BLOOD URINE NEGATIVE (NEGATIVE); COLOR ORANGE; GLUCOSE URINE NEGATIVE (NEGATIVE); KETONE URINE NEGATIVE (NEGATIVE); LEUKOCYTES URINE NEGATIVE (NEGATIVE); NITRITE URINE POSITIVE (NEGATIVE); PH URINE 5.5; PROTEIN URINE NEGATIVE (NEGATIVE); SP GRAVITY URINE 1.015; TURBIDITY URINE HAZY (CLEAR); UROBILINOGEN URINE 2 mg/dL (NORMAL)
[2019-05-08 22:39] LABS: BE 0.7 mmoll (-3.0-3.0); BLOOD TYPE ARTERIAL; HCO3-(ACT) 25.1 mmoll (20.0-26.0); O2(CT) 14.1 mL/dL (15.0-23.0); PO2(98.6) 59 mmHg (60-100); SAMPLE BLOOD; SAO2 92.1 % (95.0-100.0); THB 12.3 g/dL (11.5-17.4); pH(98.6) 7.29 (7.35-7.45)
[2019-05-08 22:43] LABS: AGAP 12; ALBUMIN 3.6 g/dL (3.5-5.0); ALKALINE PHOSPHATASE 80 U/L (32-104); BUN 7 mg/dL (8-22); CALCIUM 9.5 mg/dL (8.8-10.2); CHLORIDE 96 mmol/L (98-107); COSMO 264; CREATININE 0.3 mg/dL (0.5-0.9); ESTIMATED GFR > 60; GLUCOSE 123 mg/dL (70-104); GOT 16 U/L (10-30); GPT 9 U/L (10-36); POTASSIUM 4.3 mmol/L (3.5-5.1); SODIUM 132 mmol/L (136-145); TCO2 24 mmol/L (25-35); TOTAL BILIRUBIN < 0.15 mg/dL (0.20-1.00); TOTAL PROTEIN 5.9 g/dL (6.3-8.3)
[2019-05-08] MEDS ORDERED: LEVAQUIN 500 MG/D5W 500 MG/100 ML IVPB IV ONE (22:49)
[2019-05-08 22:57] LABS: UR EPITHELIAL CELLS <10 /HPF (<10); URINE BACTERIA 1+ /HPF; URINE RBC <10 /HPF (<10); URINE WBC <10 /HPF (<10); URINE YEAST NONE SEEN
[2019-05-08 22:58] LABS: PCO2(98.6) 59 mmHg (35-45)
[2019-05-08 22:59] LABS: ALLEN TEST YES; MODALITY CANNULA; O2HB 81.2 % (95.0-99.0)
--- NOTE | 2019-05-08 23:09 | PROVIDER DOCUMENTATION ---
This chart was entered by Maggie Mantilla Scribe, acting as scribe for Regis Marquez MD. HPI-Respiratory General - General Chief Complaint: Shortness of Breath Stated Complaint: sob Time Seen by Provider: 05/08/19 21:29 Source: patient Allergies/Adverse Reactions: Patient Allergies Allergy/AdvReac Type Severity Reaction Status Date / Time amoxicillin trihydrate * Allergy Intermediate RASH Verified 05/08/19 21:26 [From Augmentin] potassium clavulanate * Allergy Intermediate RASH Verified 05/08/19 21:26 [From Augmentin] nitrofurantoin Allergy ITCHING Verified 05/08/19 21:26 [From Macrobid] nitrofurantoin Allergy ITCHING Verified 05/08/19 21:26 macrocrystalline * [From Macrobid] Home Medications: Home Medication List Medication Instructions Recorded Confirmed Last Taken Type Alendronate [Fosamax] 70 mg PO Q7D 09/17/18 04/11/19 03/31/19 09:00 History Fluticasone 50 Mcg Nasal [place] 2 spray INTRANASAL DAILY 09/17/18 04/11/19 04/10/19 09:00 History [Flonase] Lipase/Protease/Amylase [Creon] 72,000 units PO AC 09/17/18 04/11/19 04/10/19 20:00 History Oxybutynin Chloride [Oxybutynin 15 mg PO DAILY 09/20/18 04/11/19 Unknown History Chloride ER] Docusate Sodium [Colace] 200 mg PO QHS cap 10/31/18 04/11/19 Unknown Rx Gabapentin 400 mg PO BID #60 cap 10/31/18 04/11/19 04/10/19 21:00 Rx Nicotine Patch [Nicoderm Patch] 14 mg TD DAILY patch.[id number] 10/31/18 04/11/19 Unknown Rx Acetaminophen [Tylenol] 500 mg PO Q6H PRN 04/11/19 04/11/19 Unknown History Baclofen [Lioresal] 10 mg PO TID 04/11/19 04/11/19 Unknown History Duloxetine HCl 60 mg PO DAILY 04/11/19 04/11/19 04/10/19 09:00 History Hydrocodone/Acetaminophen 7.5 mg PO Q4-6H PRN PRN 04/11/19 04/11/19 Unknown History [Hydrocodone-Acetamin 7.5-325] Mirtazapine [Remeron] 15 mg PO QHS 04/11/19 04/11/19 Unknown History CefDINIR [Omnicef] 300 mg PO BID #8 cap 04/18/19 Unknown Rx Methylprednisolone [Medrol Dosepak] 4 mg PO DIRECTED #1 pkg 04/18/19 Unknown Rx - History of Present Illness-Resp Nature of Presenting Problem: pt is a 63 yowf c/o sob x2 days w/productive yellow/clear cough and urinary urgency. pt has hx of copd, on 2L o2 in room. pt last breathing tx was few days ago. pt has allergy to amoxicillin and macrobid. Severity in ED: reports: mild Onset/Duration: reports: 2 days ago Timing: reports: still present Cough Quality/Degree: reports: productive cough Current Respiratory Medication Therapy: Initiated other (new inhaler recently) Modifying Factors: improves with: nothing Associated Symptoms: reports: cough, other (urgency) Review of Systems - Adult - REVIEW OF SYSTEMS - ADULT Constitutional: reports: no symptoms reported. denies: chills, fatique, night sweats Eyes: reports: no symptoms reported Ears, Nose, Mouth & Throat: reports: no symptoms reported Cardiovascular: reports: no symptoms reported Respiratory: reports: no symptoms reported, cough, excessive sputum production, shortness of breath. denies: dyspnea on exertion, hemoptysis, pleurisy Gastrointestinal: reports: no symptoms reported Genitourinary: reports: see HPI, urgency. denies: flank pain, hematuria, hesitency Musculoskeletal: reports: no symptoms reported Integumentary: reports: no symptoms reported Neurological: reports: no symptoms reported Psychiatric: reports: no symptoms reported Endocrine: reports: no symptoms reported Hematologic/Lymphatic: reports: no symptoms reported Allergic/Immunologic: reports: no symptoms reported All Other Systems: Reviewed and Negative Past History - Adult - PAST MEDICAL HISTORY-ADULT Review of Records: reports: Nursing Assessment Review, Medications Reviewed, Social history reviewed & non-contributory. Major Childhood Illnesses: reports: denies history Cardiovascular: reports: HTN Respiratory: reports: asthma, COPD Gastrointestinal: reports: denies history Obstetrical/Gynecological: reports: denies history Genitourinary: reports: denies history Musculoskeletal: reports: chronic pain, intervertebral disc disease, other (scoliosis) Neurological: reports: denies history Psychiatric: reports: anxiety Endocrine/Immune: reports: thyroid disorder Other Conditions: reports: denies history - PRIOR SURGERIES/PROCEDURES Surgical/Procedure History: reports: hernia repair, back/neck - IMMUNIZATION STATUS Childhood Immunizations: See Nurse Assessment Flu Vaccine: See Nurse Assessment - FAMILY HISTORY Family History: reviewed, not pertinent - SOCIAL HISTORY Smoking: cigarettes, greater than 1 pack/day Provider spent 3-5 mins advising pt. on dangers of tobacco.: Discussed manners to quit use, and f/u contacts for add'l counseling. Substance Use: none/never Physical Exam-General - PHYSICAL EXAM-ADULT Initial Vital Signs Reviewed: Yes - CONSTITUTIONAL General Appearance: appears well, alert, no apparent distress, thin. negative: lethargic, slow to respond, obtunded - EYES Eyes: PERRL/EOMI, pink conjunctivae - HEAD, EARS, NOSE, MOUTH & THROAT HENMT: normocephalic/atraumatic, moist mucous membranes, normal ENT inspection - NECK Neck: non-tender, full range of motion, supple, normal inspection - RESPIRATORY Respiratory: chest non-tender, no pleuratic chest pain, no respiratory distress, no accessory muscle use, decreased breath sounds, wheezing (mild), other (2L o2 in place). negative: lungs clear, normal breath sounds, dull on percussion, pain on inspiration, retractions, increased rate, crepitus - CARDIOVASCULAR Cardiovascular: normal peripheral pulses, regular rate, rhythm - GASTROINTESTINAL (ABDOMEN) Abdominal Exam: normal bowel sounds, non tender, soft - LYMPHATIC Lymphatic: no adenopathy - MUSCULOSKELETAL Back Exam: normal inspection, no CVA tenderness, no vertebral tenderness Extremity: normal range of motion, non-tender, normal inspection Peripheral Pulses: radial (R): 2+, radial (L): 2+ - SKIN Integumentary: normal color, normal turgor, warm/dry - NEUROLOGIC Neurologic: grossly normal, no motor/sensory deficits - PSYCHIATRIC Psych/Mental Status: normal mood/affect, normal thought content, normal thought process, oriented x 3 - HEART Score HEART Score: History: Slightly Suspicious HEART Score: ECG: Non-Specific Repolarization Disturbance/LBBB/PM HEART Score: Age: 45-65 Years HEART Score: Risk Factors for Atherosclerotic Disease: 1 or 2 Risk Factors HEART Score: Troponin: < or = Normal Limit Total HEART Score:: 3 Progress - PLAN OF CARE/RESULTS Progress/Plan/Lab Results: Vital Signs - 8 hr 05/08/19 21:22 05/08/19 22:07 Temperature 98.5 F Pulse Rate 94 H 92 H Respiratory Rate 20 16 Blood Pressure 139/74 O2 Sat by Pulse Oximetry 85 L 94 L Laboratory Results - last 24 hr 05/08/19 05/08/19 05/08/19 22:14 22:14 22:14 WBC 6.23 RBC 4.05 L Hgb 11.1 L Hct 36.4 L MCV 89.9 MCH 27.4 MCHC 30.5 L RDW Std Deviation 19.1 H Plt Count 328 MPV 8.6 Immature Gran % (Auto) 0.5 Neut % (Auto) 66.2 Lymph % (Auto) 18.9 L Harrison % (Auto) 11.4 H Eos % (Auto) 2.4 Baso % (Auto) 0.6 Immature Gran # (Auto) 0.03 Neut # (Auto) 4.12 Lymph # (Auto) 1.18 L Harrison # (Auto) 0.71 H Eos # (Auto) 0.15 Baso # (Auto) 0.04 PTT (Actin FS) Specimen Type Sample Site pH pCO2 pO2 HCO3 Base Excess Oxyhemoglobin ABG O2 Sat (Calculated) ABG O2 Saturation ABG Carboxyhemoglobin ABG Methemoglobin Abel Test A-a O2 Difference Total Hemoglobin Lactate Liter Flow Blood Gas Modality FiO2 % Sodium 132 L Potassium 4.3 Chloride 96 L Carbon Dioxide 24 L Anion Gap 12 BUN 7 L Creatinine 0.3 L Estimated GFR/1.73 m2 > 60 BUN/Creatinine Ratio 23 Glucose 123 H Calculated Osmolality 264 Calcium 9.5 Total Bilirubin < 0.15 L AST 16 ALT 9 L Alkaline Phosphatase 80 Troponin T < 0.010 Tim-X-Kiofhwfmbfs Pept Total Protein 5.9 L Albumin 3.6 Globulin 2.0 Albumin/Globulin Ratio 2.0 Urine Source Urine Color Urine Turbidity Urine pH Ur Specific [place] Urine Protein Ur Glucose (Stick) Ur Ketones (Stick) Urine Blood Urine Nitrite Urine Bilirubin Urobilinogen Dipstick Urine Leukocytes Urine WBC (Auto) Urine RBC (Auto) U Epithel Cells (Auto) Urine Bacteria (Auto) Urine Crystals Small Round Cells Urine Casts Urine Yeast-like Cells 05/08/19 05/08/19 05/08/19 22:14 22:14 22:17 WBC RBC Hgb Hct MCV MCH MCHC RDW Std Deviation Plt Count MPV Immature Gran % (Auto) Neut % (Auto) Lymph % (Auto) [place] % (Auto) Eos % (Auto) Baso % (Auto) Immature Gran # (Auto) Neut # (Auto) Lymph # (Auto) [place] # (Auto) Eos # (Auto) Baso # (Auto) PTT (Actin FS) 31.2 Specimen Type ARTERIAL Sample Site R RADIAL pH 7.29 L pCO2 59 H* pO2 59 L HCO3 25.1 Base Excess 0.7 Oxyhemoglobin 81.2 L* ABG O2 Sat (Calculated) 14.1 L ABG O2 Saturation 92.1 L ABG Carboxyhemoglobin 10.90 H* ABG Methemoglobin 1.0 Abel Test YES A-a O2 Difference 67.0 Total Hemoglobin 12.3 Lactate 0.80 Liter Flow 2.0 Blood Gas Modality CANNULA FiO2 % 28.0 Sodium Potassium Chloride Carbon Dioxide Anion Gap BUN Creatinine Estimated GFR/1.73 m2 BUN/Creatinine Ratio Glucose Calculated Osmolality Calcium Total Bilirubin AST ALT Alkaline Phosphatase Troponin T Ewk-N-Kaexaypycdg Pept 957 H Total Protein Albumin Globulin Albumin/Globulin Ratio Urine Source Urine Color Urine Turbidity Urine pH Ur Specific [place] Urine Protein Ur Glucose (Stick) Ur Ketones (Stick) Urine Blood Urine Nitrite Urine Bilirubin Urobilinogen Dipstick Urine Leukocytes Urine WBC (Auto) Urine RBC (Auto) U Epithel Cells (Auto) Urine Bacteria (Auto) Urine Crystals Small Round Cells Urine Casts Urine Yeast-like Cells 05/08/19 22:26 WBC RBC Hgb Hct MCV MCH MCHC RDW Std Deviation Plt Count MPV Immature Gran % (Auto) Neut % (Auto) Lymph % (Auto) [place] % (Auto) Eos % (Auto) Baso % (Auto) Immature Gran # (Auto) Neut # (Auto) Lymph # (Auto) [place] # (Auto) Eos # (Auto) Baso # (Auto) PTT (Actin FS) Specimen Type Sample Site pH pCO2 pO2 HCO3 Base Excess Oxyhemoglobin ABG O2 Sat (Calculated) ABG O2 Saturation ABG Carboxyhemoglobin ABG Methemoglobin Abel Test A-a O2 Difference Total Hemoglobin Lactate Liter Flow Blood Gas Modality FiO2 % Sodium Potassium Chloride Carbon Dioxide Anion Gap BUN Creatinine Estimated GFR/1.73 m2 BUN/Creatinine Ratio Glucose Calculated Osmolality Calcium Total Bilirubin AST ALT Alkaline Phosphatase Troponin T Xeq-H-Ciuazngirdh Pept Total Protein Albumin Globulin Albumin/Globulin Ratio Urine Source CLEAN CATCH Urine Color ORANGE Urine Turbidity HAZY Urine pH 5.5 Ur Specific [place] 1.015 Urine Protein NEGATIVE Ur Glucose (Stick) NEGATIVE Ur Ketones (Stick) NEGATIVE Urine Blood NEGATIVE Urine Nitrite POSITIVE A Urine Bilirubin SMALL A Urobilinogen Dipstick 2 A Urine Leukocytes NEGATIVE Urine WBC (Auto) <10 Urine RBC (Auto) <10 U Epithel Cells (Auto) <10 Urine Bacteria (Auto) 1+ Urine Crystals Not Reportable Small Round Cells Not Reportable Urine Casts Not Reportable Urine Yeast-like Cells NONE SEEN Orders Category Date Time Status Admit - [facility] Routine AdmDCTranf 05/08/19 23:09 Active Activity - Bed Rest with BRP ORDERED Care 05/08/19 23:10 Active Call Admitting on Arrival AT ADMISSION Care 05/08/19 23:10 Active Vital Signs Order ROUTINE Care 05/08/19 23:10 Active Z-Document. for Tele Applied ORDERED Care 05/08/19 23:11 Active Heart Healthy Diet Diet 05/08/19 23:11 Active CHEST-1 VIEW [RAD] Stat Exams 05/08/19 21:46 Taken ABG [RESP] Routine Lab 05/08/19 22:17 Completed CBC WITH ELECTRONIC DIFF [HEME] Stat Lab 05/08/19 22:14 Completed COMPREHENSIVE METABOLIC PANEL [CHEM] Stat Lab 05/08/19 22:14 Completed PRO B-NATRIURETIC PEPTIDE Stat Lab 05/08/19 22:14 Completed PTT [COAG] Stat Lab 05/08/19 22:14 Completed TROPONIN T Q8HR Lab 05/09/19 05:00 Uncollected TROPONIN T Q8HR Lab 05/09/19 13:00 Uncollected TROPONIN T Q8HR Lab 05/09/19 21:00 Uncollected TROPONIN T Stat Lab 05/08/19 22:14 Completed URINALYSIS W/POSS RFLX CULT [URINALYSIS] Stat Lab 05/08/19 22:26 Completed URINE CULTURE [RM] Routine Lab 05/08/19 22:57 Ordered URINE MANUAL MICROSCOPIC [URINALYSIS] Stat Lab 05/08/19 22:26 Completed Acetaminophen [Tylenol] Med 05/08/19 23:10 Ordered 650 mg PO Q6H PRN PRN Albuterol 2.5MG/Ipratrop 0.5MG [Duoneb (A & A)] Med 05/08/19 21:53 Discontinued 3 ml INH NOW ONE Albuterol 2.5MG/Ipratrop 0.5MG [Duoneb (A & A)] Med 05/08/19 23:30 Ordered 3 ml INH RTQ4H Levofloxacin 500 mg/D5w [Levaquin 500 mg/D5w] Med 05/08/19 22:49 Active 500 mg in 100 ml IV NOW Aerosol Treatments Routine Oth 05/08/19 21:53 Active Aerosol Treatments Routine Oth 05/08/19 23:11 Active Aerosol Treatments Stat Oth 05/08/19 21:53 Active Aerosol Treatments Stat Oth 05/08/19 23:11 Active Oxygen Device Routine Oth 05/08/19 23:10 Active Telemetry [OM.EQ] Routine Oth 05/08/19 23:10 Active EKG [EKG] Stat Ther 05/08/19 21:46 Ordered Transfer/Admit Order [TRANSFER] Routine Transfer 05/08/19 23:10 Ordered Result Diagrams: 05/08/19 22:14 05/08/19 22:14 - EKG 1 Time of EKG reading by physician:: 22:59 EKG Read and Signed by:: Regis Marquez EKG Interpretation (*Must complete 3 of following elements*): Abnormal Rate: 90 (bilat enlargement ) Rhythm: NSR Trappe: normal QRS: normal SD Interval: normal ST Wave: normal Comments: cannot rule out anterior infarct, age undetermined - CONSULTS/PCP/HOSPITALIST Notification #1 *Consult/PCP/Hospitalist*: Dr Hussein Time Discussed: 23:09 Consult Disposition: Admit Departure - Departure Date of Disposition Decision: 05/08/19 Time of Disposition Decision: 22:50 DIAGNOSIS: COPD exacerbation, UTI (urinary tract infection), Hypoxia, CHF (congestive heart failure) Disposition: ADMITTED INPATIENT Certified Medical Emergency: Emergent Condition: Fair Referrals and Follow-Ups: Yoandy Benedict MD [Primary Care Provider] - - Critical Care Note This patient required my direct & personal management of CC.: No Attestation - Physician/ FRANKIE Attestation Patient care was provided by Advanced Practice Provider:: No The physician spent face to face time with patient:: Yes Advanced Practice Provider documentation review:: Supervising physician onsite and consulted in the evaluation and care of this patient. The physician did have a face to face encounter with the patient. This chart was documented by the indicated scribe, (Maggie Mantilla Scribe) and accurately reflects the services I performed and decisions made by me, Regis Marquez MD, as attested by the provider's signature.
[2019-05-08] MEDS ORDERED: TYLENOL PO PRN (23:10)
--- NOTE | 2019-05-08 23:37 | EKG Report ---
Test Performed on : 05/08/2019 10:59:11 PM Test Reason : sob Blood Pressure : / mmHG Vent. Rate : 090 BPM Atrial Rate : 090 BPM P-R Int : 116 ms QRS Dur : 080 ms QT Int : 366 ms P-R-T Axes : 079 074 080 degrees QTc Int : 447 ms Normal sinus rhythm. Biatrial enlargement Cannot rule out Anterior infarct (cited on or before 11-APR-2019) Abnormal ECG When compared with ECG of 11-APR-2019 11:28, (Unconfirmed) No significant change was found Confirmed by Humberto Antunez MD ([id number]) on 05/24/2019 7:37:08 AM
[2019-05-08] MEDS: DUONEB (A & A) INH SCH (23:46)
[2019-05-09] MEDS: SOLU-MEDROL IV SCH ×3 (00:56→17:11)
[2019-05-09] MEDS ORDERED: ATIVAN IV ONE (03:42)
[2019-05-09] MEDS ORDERED: MORPHINE IV ONE (03:42)
[2019-05-09] MEDS: DUONEB (A & A) INH SCH ×7 (04:23→23:09)
[2019-05-09 06:33] LABS: URINE SOURCE CATH
--- NOTE | 2019-05-09 07:13 | Diag Imaging Result Doc PS360 ---
EXAM: CHEST-1 VIEW - 05/08/2019 HISTORY: sob TECHNIQUE: Portable chest one view COMPARISON: 04/14/2019 FINDINGS: Heart size is normal. There are mild COPD changes. There are multiple small calcified granulomas from old granulomatous disease similar to prior. There is minimal perihilar atelectasis or infiltrate on the right. The lungs otherwise appear clear of acute changes. There is no pleural effusion or pneumothorax identified. IMPRESSION: Mild COPD changes. Minimal perihilar atelectasis or infiltrate on the right. Electronically signed by Laith Jimenez 05/09/2019 7:11 AM
[2019-05-09 08:34] LABS: BILIRUBIN URINE SMALL (NEGATIVE); BLOOD URINE NEGATIVE (NEGATIVE); COLOR YELLOW; GLUCOSE URINE NEGATIVE (NEGATIVE); KETONE URINE NEGATIVE (NEGATIVE); LEUKOCYTES URINE NEGATIVE (NEGATIVE); NITRITE URINE POSITIVE (NEGATIVE); PROTEIN URINE NEGATIVE (NEGATIVE); SP GRAVITY URINE 1.009; TURBIDITY URINE CLEAR (CLEAR); UROBILINOGEN URINE NORMAL (NORMAL)
[2019-05-09 08:35] LABS: UR EPITHELIAL CELLS <10 /HPF (<10); URINE BACTERIA NEGATIVE /HPF; URINE RBC <10 /HPF (<10); URINE WBC <10 /HPF (<10)
[2019-05-09] MEDS ORDERED: NS 1,000 ML IV ONE (08:52)
[2019-05-09] MEDS ORDERED: SALINE LOCK IV FLUID XX ONE (08:52)
[2019-05-09] MEDS ORDERED: ZOSYN 3.375 GM in NS 50 ML IV SCH (09:00)
[2019-05-09 09:10] LABS: BE 5.7 mmoll (-3.0-3.0); BLOOD TYPE ARTERIAL; HCO3-(ACT) 29.2 mmoll (20.0-26.0); METHB 1.1 % (0.0-1.5); O2(CT) 15.3 mL/dL (15.0-23.0); O2HB 90.5 % (95.0-99.0); PO2(98.6) 69 mmHg (60-100); SAMPLE BLOOD; SAO2 94.8 % (95.0-100.0)
[2019-05-09 09:15] LABS: MODALITY CANNULA; PCO2(98.6) 51 mmHg (35-45)
[2019-05-09 09:16] LABS: ALLEN TEST NO
--- NOTE | 2019-05-09 09:30 | Diag Imaging Result Doc PS360 ---
EXAM: CHEST-2 VIEWS - 05/09/2019 HISTORY: sob TECHNIQUE: Chest two views COMPARISON: 05/08/2019 portable chest one view FINDINGS: Heart size is normal. Lungs appear mildly hyperexpanded which may relate to COPD exacerbation. There has been interval resolution of the minimal right perihilar atelectasis or infiltrate. Lungs now appear clear except for stable small granulomas from old granulomatous disease. There is no pleural effusion or pneumothorax identified. There are postsurgical changes with metallic hardware noted at the lower thoracic/upper lumbar spine. IMPRESSION: Mildly hyperexpanded lungs which may relate to COPD exacerbation. No evidence of pneumonia. No pneumothorax. Electronically signed by Laith Jimenez 05/09/2019 9:28 AM
[2019-05-09] MEDS: LOVENOX SUBQ SCH (09:46)
[2019-05-09 10:00] LABS: BASO# 0.01 X1000 (0.0-0.2); BASO% 0.3 % (0.0-0.8); IMM GRAN# 0.02 X1000 (0.0-0.04); IMM GRAN% 0.6 % (0.0-0.5); LYMPH# 0.35 X1000 (1.2-3.4); LYMPH% 9.9 % (20.5-51.1); MCV 90.1 FL (81-99); MONO# 0.04 X1000 (0.11-0.59); MONO% 1.1 % (1.7-9.3); NEUT# 3.13 X1000 (1.4-6.5); NEUT% 88.1 % (42.2-75.2); PLT 348 X1000 (130-400); RBC 4.44 XMIL (4.2-5.4); RDW 19.6 % (11.5-14.5); WBC 3.55 X1000 (4.8-10.8)
[2019-05-09 10:08] LABS: AGAP 12; ALBUMIN 4.3 g/dL (3.5-5.0); ALKALINE PHOSPHATASE 90 U/L (32-104); BUN 5 mg/dL (8-22); CALCIUM 9.5 mg/dL (8.8-10.2); CHLORIDE 94 mmol/L (98-107); COSMO 271; CREATININE 0.4 mg/dL (0.5-0.9); ESTIMATED GFR > 60; GLUCOSE 160 mg/dL (70-104); GOT 16 U/L (10-30); GPT 11 U/L (10-36); MAGNESIUM 1.5 mg/dL (1.5-2.7); POTASSIUM 4.5 mmol/L (3.5-5.1); SODIUM 135 mmol/L (136-145); TCO2 29 mmol/L (25-35); TOTAL PROTEIN 7.2 g/dL (6.3-8.3)
[2019-05-09 10:24] LABS: LYMPHS 9 % (21-51); MONO 1 % (1-9); SEGS 90 % (42-75)
[2019-05-09] MEDS: XANAX PO PRN ×3 (10:54→22:50)
[2019-05-09] MEDS: NORCO-7.5 PO PRN ×3 (11:55→22:50)
[2019-05-09] MEDS: CYMBALTA PO SCH (11:55)
[2019-05-09] MEDS: NICODERM PATCH TD SCH (11:58)
[2019-05-09] MEDS: LIORESAL PO SCH ×2 (14:11→22:51)
[2019-05-09 14:40] LABS: PREALBUMIN 20.2 mg/dL (20-40)
[2019-05-09] MEDS: HALDOL IV PRN (15:52)
[2019-05-09] MEDS: ROCEPHIN 2 GM in NS 50 ML IV SCH (16:22)
[2019-05-09] MEDS: CREON PO SCH (16:26)
--- NOTE | 2019-05-09 19:32 | HISTORY AND PHYSICAL ---
PRIMARY CARE PROVIDER: Dr. Yoandy Benedict. CHIEF COMPLAINT: Urinary retention and shortness of breath. HISTORY OF PRESENT ILLNESS: Ms. Yolanda Mcnulty is a 63-year-old anorexic female with a medical history of COPD, who is here extremely agitated, a little bit on the confused side, very anxious, but presented with shortness of breath and urinary retention that has lasted at least 2 days prior to admission. States that she has had chills, but does not know if she had fever. She is shaky, but she says she normally has tremors. She admits to coughing up yellow phlegm, but denies any other complaints at this time. She is constantly requesting to go sit on the toilet, although she has a Salazar catheter in place. Last night she was acidotic. Looked like she could have used some BiPAP, but she actually corrected through the night with fluids and antibiotics and low-dose oxygen. PAST MEDICAL HISTORY: 1. Interstitial cystitis. 2. Ulcerative colitis, which she states is why she is anorexic, i.e., she has lost a pound since last time she was here last month. She went from 84 down to 83 pounds. 3. COPD. 4. Chronic back pain secondary to scoliosis and multiple back surgeries. 5. Chronic opioid use. 6. Osteoporosis. 7. Depression. 8. Pancreatic insufficiency secondary to calcified spots. SURGICAL HISTORY: 1. Three back surgeries for scoliosis correction. 2. Total arthroplasty of the right hip. SOCIAL HISTORY: One pack per day smoker for 30+ years. No alcohol or illicit drug use. She uses a walker at home sometimes. Lives with her son and brother. She is on disability. FAMILY HISTORY: Mother had hypertension. ALLERGIES: Augmentin, Macrobid, and sensitivity to steroids which makes her more jittery. HOME MEDICATIONS: 1. Remeron 15 mg p.o. nightly. 2. Creon 72,000 units p.o., 2 capsules by mouth 30 minutes before meals and take an additional 3 capsules with meals. 3. Duloxetine 60 mg p.o. daily. 4. Fluticasone 2 sprays nasally. 5. Fosamax 70 mg p.o. every 7 days. 6. [place] 7.5 every 4 to 6 hours p.r.n. 7. Baclofen 10 mg p.o. t.i.d. 8. Oxybutynin 15 mg p.o. daily. 9. Colace 200 mg p.o. nightly. 10. Neurontin 400 mg p.o. twice daily. REVIEW OF SYSTEMS: Fourteen point review of systems are complete and all are negative except for those mentioned above in the HPI. PHYSICAL EXAMINATION: VITAL SIGNS: Temperature 97.9 degrees, heart rate 87, respiratory rate 18, blood pressure 105/59, O2 saturation 96% on 2 L nasal cannula. GENERAL: Ms. Yolanda Mcnulty is a 63-year-old female. She is very agitated but answers questions semi-appropriately. HEENT: Atraumatic, normocephalic. Pupils equal, round, reactive to light. Ocular movements intact. Mucous membranes are dry. NECK: Trachea midline. CARDIOVASCULAR: S1, S2. Regular rate and rhythm. No rubs, gallops, murmurs. No lower extremity edema. +2 dorsalis and radial pulses. Negative JVD or carotid bruits. PULMONARY: Clear. No expiratory wheezes anterior and posteriorly. Decreased in the bases. Mild accessory muscle use. Mild work of breathing. She is tolerating 2 L nasal cannula. GI: Soft, nondistended, nontender, a little semi-firm though. Positive bowel sounds x4. EXTREMITIES: Moves all extremities equally. Full range of motion. NEUROLOGIC: A and O x3. Follows commands. GENITOURINARY: Intact. SKIN: Warm, dry, intact. LABORATORY DATA: White blood cells 3000, hemoglobin 12, hematocrit 40, platelet count 348,000. D- dimer 0.34. ABGs 7.40, pCO2 51, PO2 of 69, bicarbonate 29, base excess 5.7. Saturation 90%. Lactate 0.7 on 2 L. Sodium 135, potassium 4.5, BUN 5, creatinine 0.5, glucose 160, calcium 9.5, phosphorus 4.0, magnesium 1.5, bilirubin 0.20. AST 16, ALT 11. Troponin 0.01. Albumin 4.3. Urinalysis positive nitrites, small bilirubin, negative for bacteria. IMAGING: Chest x-ray: Mild COPD changes. Minimal perihilar atelectasis or infiltrate on the right. Another chest x-ray this morning. Repeat chest x-ray: Mildly hyperexpanded lungs, which may relate COPD exacerbation. No evidence of pneumonia. No pneumothorax. EKG sinus rhythm, rate 90, QTc 447. ASSESSMENT/PLAN: 1. Chronic obstructive pulmonary disease exacerbation with acute on chronic hypercarbic hypoxemic respiratory failure. She is on 2 L nasal cannula receiving albuterol Atrovent nebulizers, IV steroids, IV antibiotics. 2. Metabolic encephalopathy. She is quite agitated. She seems oriented but then she has confused conversation. She is agitated and she is anxious. Some Xanax has been ordered p.r.n. 3. Chronic pain syndrome on chronic opioid use with history of abuse. She has p.r.n. [place] on here. 4. Depression and anxiety. Continue Cymbalta. 5. Chronic constipation. Continue Colace. 6. Pancreatic insufficiency. Continue Creon. 7. Deep venous thrombosis prophylaxis. Lovenox. 8. Tobacco abuse. Cessation discussed. Nicotine patch ordered. 9. Urinary retention with possible urinary tract infection. She has definitely got retention that has been going on for 2 days. There are nitrites in the urine, but there is no bacteria. There is no white blood cells in it. Urine culture is pending and in the past, even as early as October she had Escherichia coli in the urine. At that time, it was extended spectrum beta- lactamases negative. Multiple resistances, though, Levaquin, Bactrim, ampicillin. Dictated by NASREEN Huber for Curtis Romano MD Addendum: Patient seen and examined by myself. Agree with NASREEN note. It reflects my assessment and plan. Patient is being admitted to hospital for COPD exacerbation. She does not look well. She continues to smoke. She is malnourished. Will start IV antibiotics and scheduled Duoneb q4hrs as well as IV steroids. Will monitor patient closely and continue with rest of home medications. cc: NASREEN Huber MD [facility]
[2019-05-09] MEDS: COLACE PO SCH (22:50)
[2019-05-09] MEDS: REMERON PO SCH (22:50)
[2019-05-09] MEDS: NEURONTIN PO SCH (22:51)
[2019-05-09] MEDS: LEVAQUIN 750 MG/D5W 750 MG/150 ML IVPB IV SCH (22:53)
[2019-05-10] MEDS: SOLU-MEDROL IV SCH ×3 (02:59→18:39)
[2019-05-10] MEDS: DUONEB (A & A) INH SCH ×6 (03:15→22:30)
[2019-05-10] MEDS: NORCO-7.5 PO PRN ×2 (05:36→11:09)
[2019-05-10] MEDS: XANAX PO PRN ×2 (05:37→11:09)
[2019-05-10] MEDS: CREON PO SCH ×4 (05:37→17:17)
[2019-05-10 06:27] LABS: BASO# 0.01 X1000 (0.0-0.2); BASO% 0.1 % (0.0-0.8); EOS# 0.01 X1000 (0.0-0.7); EOS% 0.1 % (0.0-10.0); HEMATOCRIT 37.9 % (37.0-47.0); HEMOGLOBIN 11.3 g/dL (12.0-16.0); IMM GRAN# 0.02 X1000 (0.0-0.04); IMM GRAN% 0.2 % (0.0-0.5); LYMPH# 1.24 X1000 (1.2-3.4); LYMPH% 12.3 % (20.5-51.1); MCHC 29.8 g/dL (33-37); MCV 90.5 FL (81-99); MONO# 1.55 X1000 (0.11-0.59); MONO% 15.4 % (1.7-9.3); MPV 9.4 FL (7.4-10.4); NEUT# 7.24 X1000 (1.4-6.5); NEUT% 71.9 % (42.2-75.2); PLT 331 X1000 (130-400); RBC 4.19 XMIL (4.2-5.4); RDW 19.5 % (11.5-14.5); WBC 10.07 X1000 (4.8-10.8)
[2019-05-10] MEDS: NICODERM PATCH TD SCH (09:35)
[2019-05-10] MEDS: CYMBALTA PO SCH (09:35)
[2019-05-10] MEDS: NEURONTIN PO SCH ×2 (09:35→21:52)
[2019-05-10] MEDS: LIORESAL PO SCH ×3 (09:35→21:53)
[2019-05-10] MEDS: DITROPAN XL PO SCH (09:35)
[2019-05-10] MEDS: HALDOL IV PRN (09:36)
[2019-05-10] MEDS: LOVENOX SUBQ SCH (09:36)
[2019-05-10 11:28] LABS: BE 8.9 mmoll (-3.0-3.0); BLOOD TYPE ARTERIAL; HCO3-(ACT) 31.8 mmoll (20.0-26.0); METHB 1.2 % (0.0-1.5); O2(CT) 16.4 mL/dL (15.0-23.0); O2HB 94.5 % (95.0-99.0); PO2(98.6) 91 mmHg (60-100); SAMPLE BLOOD; SAO2 96.2 % (95.0-100.0); THB 12.3 g/dL (11.5-17.4); pH(98.6) 7.44 (7.35-7.45)
[2019-05-10 11:39] LABS: ALLEN TEST NO; MODALITY CANNULA; PCO2(98.6) 51 mmHg (35-45)
--- NOTE | 2019-05-10 13:49 | PROGRESS NOTE ---
DATE: 05/10/2019 SUBJECTIVE: The patient reports still feeling short of breath. This morning the nurse informed me that the patient had a spell of shortness of breath and she needed to increase the oxygen supplementation from 2 L to 4 L and now, she is feeling a little bit better. OBJECTIVE: Vital Signs: Temperature 97.6 degrees, heart rate 116, respiratory rate 16, blood pressure 128/109, O2 saturation 100% on 4 L nasal cannula. General: This is a chronically ill appearing, malnourished 63-year-old female lying in bed, in no acute distress. Cardiovascular: S1, S2 heard. Tachycardic. No murmurs, gallops, or rubs. Respiratory: Wheezing all over both pulmonary ashton. The patient is using some accessory muscles. The patient is in mild respiratory distress. Abdomen: Soft. Nondistended. Bowel sounds present. No organomegaly. Nontender to palpation. Extremities: No clubbing, cyanosis, or edema. Peripheral pulses present in both legs. Neurologic: The patient is alert and oriented x3. Moves all 4 extremities. LABORATORY DATA: White cell count 10.07, hemoglobin 11.3, hematocrit 37.9, platelets 331,000. ABG still pending as well as BMP. The urine culture shows no growth. ASSESSMENT AND PLAN: 1. Acute respiratory failure secondary to chronic obstructive pulmonary disease exacerbation. The patient is on DuoNeb every 4 hours. She reports that she uses oxygen on an as needed basis and she was not using it for almost a year. At admission, she was requiring 2 L of oxygen by nasal cannula. By now she is more short of breath, requiring now 4 L of oxygen by nasal cannula. Physical examination disclosed wheezing all over so at this point, we will continue with DuoNeb that we are going to continue with every 4 hours, plus IV steroids and IV antibiotics. Considering that this patient is not feeling better I am going to check chest x- ray today. 2. Metabolic encephalopathy. The patient has been agitated, last afternoon and at night. She is now much better. She is receiving Haldol p.r.n. We will continue with the same management. 3. Chronic pain syndrome. On chronic opiate use. The patient is using [place] p.r.n. for scoliosis. 4. Depression and anxiety. We will continue with Cymbalta and p.r.n. Xanax. 5. Chronic constipation. We will continue with Colace. 6. Pancreatic insufficiency. The patient is not complaining of any abdominal pain. We will continue with Creon. 7. Tobacco abuse. Again, we discussed with her the importance to stop smoking. The patient is still smoking half a pack or less per day. 8. Urinary retention. The patient complains of some difficulty in urinating but as of now the patient is able to void by herself. If not, we will do straight catheterization. DISPOSITION: The patient is not feeling good. She is not improving as we were expecting, so, we will continue to monitor this patient closely here in the hospital. cc: Curtis Romano MD
[2019-05-10] MEDS: ROCEPHIN 2 GM in NS 50 ML IV SCH (17:17)
[2019-05-10] MEDS: REMERON PO SCH (21:52)
[2019-05-10] MEDS: COLACE PO SCH (21:53)
[2019-05-10] MEDS: LEVAQUIN 750 MG/D5W 750 MG/150 ML IVPB IV SCH (23:48)
[2019-05-11] MEDS: SOLU-MEDROL IV SCH ×3 (02:59→17:56)
[2019-05-11] MEDS: DUONEB (A & A) INH SCH ×6 (03:15→22:31)
[2019-05-11] MEDS: CREON PO SCH ×3 (06:10→15:42)
[2019-05-11 06:12] LABS: BE 12.3 mmoll (-3.0-3.0); BLOOD TYPE ARTERIAL; HCO3-(ACT) 34.4 mmoll (20.0-26.0); METHB 1.4 % (0.0-1.5); O2HB 93.2 % (95.0-99.0); PO2(98.6) 77 mmHg (60-100); SAMPLE BLOOD; SAO2 94.8 % (95.0-100.0); THB 11.4 g/dL (11.5-17.4); pH(98.6) 7.45 (7.35-7.45)
[2019-05-11 06:18] LABS: ALLEN TEST YES; MODALITY CANNULA; PCO2(98.6) 55 mmHg (35-45)
[2019-05-11 06:40] LABS: EOS# 0.01 X1000 (0.0-0.7); EOS% 0.1 % (0.0-10.0); HEMATOCRIT 35.1 % (37.0-47.0); HEMOGLOBIN 10.2 g/dL (12.0-16.0); LYMPH# 1.33 X1000 (1.2-3.4); MCH 26.5 PG (27-31); MCHC 29.1 g/dL (33-37); MCV 91.2 FL (81-99); MONO# 1.02 X1000 (0.11-0.59); MONO% 10.7 % (1.7-9.3); MPV 9.4 FL (7.4-10.4); NEUT# 7.15 X1000 (1.4-6.5); NEUT% 75.2 % (42.2-75.2); PLT 315 X1000 (130-400); RBC 3.85 XMIL (4.2-5.4); RDW 19.6 % (11.5-14.5); WBC 9.51 X1000 (4.8-10.8)
[2019-05-11] MEDS: DITROPAN XL PO SCH (08:11)
[2019-05-11] MEDS: NEURONTIN PO SCH ×2 (08:11→21:35)
[2019-05-11] MEDS: LIORESAL PO SCH ×3 (08:11→21:36)
[2019-05-11] MEDS: NICODERM PATCH TD SCH (08:12)
[2019-05-11] MEDS: LOVENOX SUBQ SCH (08:12)
[2019-05-11] MEDS: CYMBALTA PO SCH (08:12)
[2019-05-11 09:13] LABS: AGAP 11; BUN 12 mg/dL (8-22); CHLORIDE 98 mmol/L (98-107); COSMO 272; CREATININE 0.4 mg/dL (0.5-0.9); ESTIMATED GFR > 60; GLUCOSE 100 mg/dL (70-104); POTASSIUM 4.6 mmol/L (3.5-5.1); SODIUM 136 mmol/L (136-145); TCO2 27 mmol/L (25-35)
--- NOTE | 2019-05-11 11:53 | Diag Imaging Result Doc PS360 ---
EXAM: CHEST-2 VIEWS INDICATION: copd exacerbation TECHNIQUE: 2 views COMPARISON: 05/09/2019 FINDINGS: There are scattered calcified granulomata. The lungs are somewhat hyperinflated suggesting COPD, stable. The lungs are grossly clear. There is no discrete pleural fluid collection or pneumothorax. The cardiomediastinal silhouette and central vasculature are grossly unremarkable. IMPRESSION: Stable COPD changes. No definite acute pathology by plain radiograph. Electronically signed by Jonathon Mantilla 05/11/2019 11:50 AM
--- NOTE | 2019-05-11 14:26 | PROGRESS NOTE ---
DATE: 05/11/2019 SUBJECTIVE: The patient reports breathing a little bit better today. The nurse informed me that patient slept last night well but continues to require 4 L of oxygen by nasal cannula. OBJECTIVE: Vital Signs: Temperature 98.1 degrees, heart rate 119, respiratory rate 20, blood pressure 150/69. O2 saturation 100% on 4 L nasal cannula. General examination: This is a chronically ill-appearing, looking older than her stated age and malnourished 63-year-old female, lying in bed in no acute distress. Cardiovascular: S1, S2 heard. Tachycardic. No murmurs, gallops, or rubs. Regular rate and rhythm. Respiratory: Wheezing all over both pulmonary ashton, better in comparing with yesterday. The patient is not using any accessory muscles or having work of breathing. Abdomen: Soft, nondistended, a little bit tender in the suprapubic area. No organomegaly noted. Extremities: No clubbing, cyanosis, or edema. Peripheral pulses present in both legs. Neurological: Patient is alert and oriented x3. Moves 4 extremities. LABORATORY DATA: White cell count 9.51, hemoglobin 10.2, hematocrit 35.1, platelets 315,000, with ABG that shows pH 7.45 with pCO2 55, PO2 77, and normal BMP. ASSESSMENT AND PLAN: 1. Acute hypercapnic respiratory failure secondary to chronic obstructive pulmonary disease exacerbation. Patient's CO2 continues to be high. Patient clinically improving a little bit. At this point, I talked to the patient and explained to her that she needs to have BiPAP. She needs to use it at night while she sleeps and at bedtime as tolerated. Patient acknowledged understanding. Also, patient required between 3 and 4 L of oxygen by nasal cannula. She was using it intermittently, before coming to the hospital has not used any oxygen for a year. In any case, I am planning to keep this patient over the weekend. Continue with DuoNeb every 4 hours as scheduled and IV steroids and IV antibiotics. I am going to order an x-ray today. We will see what it shows. 2. Metabolic encephalopathy. Patient was able to sleep and now she is less agitated. Yesterday she was pulling out her IV line. We will continue with Haldol p.r.n. 3. Chronic pain syndrome, on chronic opiate use. The patient has been advised to use minimum amount of pain medications considering her advanced chronic obstructive pulmonary disease. 4. Anxiety and depression. We will continue with Cymbalta and p.r.n. Xanax. 5. Chronic constipation. We will continue with Colace. 6. Pancreatic insufficiency. The patient clinically feeling okay, not complaining of any abdominal pain. We will continue with Creon. 7. Tobacco abuse. Patient reports she is going to quit smoking. 8. Urinary retention. Actually that apparently resolved because patient is going to the bathroom, not requiring any straight catheterization. 9. Disposition. As we mentioned before, we will keep this patient over the weekend. We will try BiPAP at night and daytime as much as we can and we will go from there. cc: Curtis Romano MD MTDD
[2019-05-11] MEDS: XANAX PO PRN ×2 (15:33→21:36)
[2019-05-11] MEDS: NORCO-7.5 PO PRN ×2 (15:33→21:36)
[2019-05-11] MEDS: ROCEPHIN 2 GM in NS 50 ML IV SCH (15:43)
[2019-05-11] MEDS: REMERON PO SCH (21:36)
[2019-05-11] MEDS: COLACE PO SCH (21:36)
[2019-05-11] MEDS: LEVAQUIN 750 MG/D5W 750 MG/150 ML IVPB IV SCH (23:10)
[2019-05-12] MEDS: SOLU-MEDROL IV SCH ×3 (02:10→18:22)
[2019-05-12] MEDS: DUONEB (A & A) INH SCH ×6 (03:49→22:35)
[2019-05-12] MEDS ORDERED: FOSAMAX PO SCH (06:00)
[2019-05-12 06:15] LABS: HEMATOCRIT 36.4 % (37.0-47.0); HEMOGLOBIN 10.7 g/dL (12.0-16.0); IMM GRAN# 0.01 X1000 (0.0-0.04); IMM GRAN% 0.1 % (0.0-0.5); LYMPH% 17.5 % (20.5-51.1); MCH 26.5 PG (27-31); MCHC 29.4 g/dL (33-37); MCV 90.1 FL (81-99); MONO# 1.07 X1000 (0.11-0.59); MONO% 12.5 % (1.7-9.3); MPV 9.6 FL (7.4-10.4); NEUT# 5.99 X1000 (1.4-6.5); NEUT% 69.9 % (42.2-75.2); PLT 318 X1000 (130-400); RBC 4.04 XMIL (4.2-5.4); RDW 19.8 % (11.5-14.5); WBC 8.57 X1000 (4.8-10.8)
[2019-05-12] MEDS: CREON PO SCH ×3 (06:15→15:40)
[2019-05-12 06:36] LABS: AGAP 11; BUN 15 mg/dL (8-22); CALCIUM 9.4 mg/dL (8.8-10.2); CHLORIDE 97 mmol/L (98-107); COSMO 280; CREATININE 0.3 mg/dL (0.5-0.9); ESTIMATED GFR > 60; GLUCOSE 119 mg/dL (70-104); POTASSIUM 4.2 mmol/L (3.5-5.1); SODIUM 139 mmol/L (136-145); TCO2 31 mmol/L (25-35)
[2019-05-12] MEDS: NICODERM PATCH TD SCH (09:28)
[2019-05-12] MEDS: XANAX PO PRN ×2 (09:28→22:11)
[2019-05-12] MEDS: DITROPAN XL PO SCH (09:28)
[2019-05-12] MEDS: LOVENOX SUBQ SCH (09:28)
[2019-05-12] MEDS: CYMBALTA PO SCH (09:28)
[2019-05-12] MEDS: NEURONTIN PO SCH ×2 (09:29→22:09)
[2019-05-12] MEDS: LIORESAL PO SCH ×3 (09:29→22:09)
[2019-05-12 09:40] LABS: BE 8.7 mmoll (-3.0-3.0); BLOOD TYPE ARTERIAL; HCO3-(ACT) 31.5 mmoll (20.0-26.0); METHB 0.9 % (0.0-1.5); O2(CT) 16.4 mL/dL (15.0-23.0); PCO2(98.6) 49 mmHg (35-45); PO2(98.6) 58 mmHg (60-100); SAMPLE BLOOD; SAO2 91.2 % (95.0-100.0); pH(98.6) 7.45 (7.35-7.45)
[2019-05-12 09:45] LABS: ALLEN TEST NO; MODALITY CANNULA
[2019-05-12 09:46] LABS: O2HB 89.6 % (95.0-99.0)
--- NOTE | 2019-05-12 10:21 | PROGRESS NOTE ---
DATE: 05/12/2019 SUBJECTIVE: The patient reports breathing better today. According to nursing staff, she did not use BiPAP all night long as she was supposed to. OBJECTIVE: Vital signs: Temperature 97.9 degrees, heart rate 124, respiratory rate 16, blood pressure 136/98, O2 saturation 99% on 3 L nasal cannula. General: This is a chronically ill- appearing, looking older than her stated age, malnourished 63-year-old female lying in bed, in no acute distress. Cardiovascular: S1, S2 heard. Tachycardic but no murmurs, gallops, or rubs noted. Respiratory: There is a little bit less wheezing all over both pulmonary ashton. Patient not using any accessory muscles or having work of breathing. Abdomen: Soft, nontender to palpation. Bowel sounds present. No organomegaly. Extremities: No clubbing, cyanosis, or edema. Peripheral pulses present. Normal legs. Neurologic: Patient alert and oriented x3. Moves 4 extremities. LABORATORY DATA: Reviewed. ASSESSMENT AND PLAN: 1. Acute hypercapnic respiratory failure secondary to chronic obstructive pulmonary disease exacerbation. CO2 is not available from his ABG this morning. Clinically, this patient is a little bit better. We will continue with oxygen supplementation, in this case 3 L of oxygen by nasal cannula which is a little bit better in comparing with 4 yesterday. We will continue with DuoNeb every 4 hours, intravenous steroids and IV antibiotics. The x-ray from yesterday shows stable chronic obstructive pulmonary disease changes, but no definite acute pathology. We will continue with same management. 2. Metabolic encephalopathy, resolved. 3. Chronic pain syndrome. We will continue with home medications. 4. Anxiety and depression. We will continue with Cymbalta. 5. Chronic constipation. Will continue with Colace. 6. Pancreatic insufficiency. Clinically, the patient is not complaining of any abdominal pain. We will continue with Creon. 7. Tobacco abuse. Patient reports she is going to quit smoking definitely. 8. Urinary retention, much better. Disposition. Will keep this patient here today. Her ABG looks better. We can discharge her tomorrow. cc: Curtis Romano MD
[2019-05-12] MEDS: NORCO-7.5 PO PRN ×3 (12:43→22:33)
[2019-05-12] MEDS: ROCEPHIN 2 GM in NS 50 ML IV SCH (15:39)
[2019-05-12] MEDS: COLACE PO SCH (22:10)
[2019-05-12] MEDS: REMERON PO SCH (22:10)
[2019-05-12] MEDS: LEVAQUIN 750 MG/D5W 750 MG/150 ML IVPB IV SCH (22:11)
[2019-05-13] MEDS: SOLU-MEDROL IV SCH ×2 (02:34→09:17)
[2019-05-13] MEDS: DUONEB (A & A) INH SCH ×3 (03:03→11:52)
[2019-05-13 05:12] LABS: BE 11.2 mmoll (-3.0-3.0); BLOOD TYPE ARTERIAL; HCO3-(ACT) 33.5 mmoll (20.0-26.0); METHB 1.1 % (0.0-1.5); O2(CT) 17.7 mL/dL (15.0-23.0); O2HB 90.4 % (95.0-99.0); PO2(98.6) 64 mmHg (60-100); SAMPLE BLOOD; SAO2 92.2 % (95.0-100.0); THB 13.9 g/dL (11.5-17.4); pH(98.6) 7.46 (7.35-7.45)
[2019-05-13 05:16] LABS: ALLEN TEST YES; MODALITY CANNULA; PCO2(98.6) 52 mmHg (35-45)
[2019-05-13] MEDS: CREON PO SCH ×2 (06:06→11:02)
[2019-05-13 06:14] LABS: EOS# 0.01 X1000 (0.0-0.7); EOS% 0.1 % (0.0-10.0); HEMATOCRIT 43.3 % (37.0-47.0); HEMOGLOBIN 13.1 g/dL (12.0-16.0); IMM GRAN# 0.02 X1000 (0.0-0.04); IMM GRAN% 0.2 % (0.0-0.5); LYMPH# 2.07 X1000 (1.2-3.4); LYMPH% 24.4 % (20.5-51.1); MCH 26.7 PG (27-31); MCHC 30.3 g/dL (33-37); MCV 88.4 FL (81-99); MONO# 1.32 X1000 (0.11-0.59); MONO% 15.6 % (1.7-9.3); MPV 9.6 FL (7.4-10.4); NEUT# 5.05 X1000 (1.4-6.5); NEUT% 59.7 % (42.2-75.2); PLT 406 X1000 (130-400); WBC 8.47 X1000 (4.8-10.8)
[2019-05-13 06:15] LABS: AGAP 14; BUN 22 mg/dL (8-22); CHLORIDE 90 mmol/L (98-107); COSMO 279; CREATININE 0.4 mg/dL (0.5-0.9); ESTIMATED GFR > 60; GLUCOSE 93 mg/dL (70-104); POTASSIUM 4.4 mmol/L (3.5-5.1); SODIUM 138 mmol/L (136-145); TCO2 34 mmol/L (25-35)
[2019-05-13 07:40] VITALS: BP 168/91
[2019-05-13] MEDS: NORCO-7.5 PO PRN (09:16)
[2019-05-13] MEDS: CYMBALTA PO SCH (09:16)
[2019-05-13] MEDS: LIORESAL PO SCH (09:16)
[2019-05-13] MEDS: NEURONTIN PO SCH (09:16)
[2019-05-13] MEDS: NICODERM PATCH TD SCH (09:17)
[2019-05-13] MEDS: DITROPAN XL PO SCH (09:17)
[2019-05-13] MEDS: LOVENOX SUBQ SCH (09:17)
[2019-05-13] MEDS ORDERED: LEVAQUIN PO SCH (21:00)
--- NOTE | 2019-05-14 10:16 | DISCHARGE SUMMARY ---
ADMISSION DATE: 05/09/2019 DISCHARGE DATE: 05/13/2019 PRIMARY CARE PROVIDER: Dr. Yoandy Benedict. PERTINENT PROCEDURES: Chest x-ray: Mild COPD changes, minimal perihilar atelectasis or infiltrate on the right. Followup chest x-ray: Stable COPD changes. No definite acute pathology by plain radiograph. DISCHARGE DIAGNOSES: 1. Acute hypoxemic respiratory failure secondary to chronic obstructive pulmonary disease exacerbation. Clinically, the patient has improved. We are seeing if she qualifies for home oxygen. 2. Metabolic encephalopathy, resolved. 3. Chronic pain syndrome. Continue with home medications. 4. Anxiety and depression. Continue with Cymbalta. 5. Chronic constipation. Continue Colace. 6. Pancreatic insufficiency. The patient is not complaining of any abdominal pain. Continue on Creon. 7. Tobacco abuse. The patient has been educated daily on smoking cessation. She does report that she is going to quit smoking indefinitely. 8. Urinary retention, resolved. HOSPITAL COURSE: Briefly, Ms. Mcnulty is a 63-year-old female with a history of COPD, who came to the ED extremely agitated, confused, anxious appearing, short of breath, with urinary retention at least 2 days prior to admission. She also was having chills, but no reported fever, coughing up yellow phlegm. On her initial labs, she was acidotic. She was fluid resuscitated and given IV antibiotics and placed on low-dose oxygen, and admitted for COPD exacerbation with acute on chronic hypercarbic hypoxemic respiratory failure, and was placed on supplemental O2, bronchodilators, IV steroids, and IV antibiotics. The patient was still having bouts of confusion and was given p.r.n. Haldol. They did have to increase her oxygen to 4 L nasal cannula, which did help improve her breathing. She would intermittently use BiPAP, but secondary to her initial agitation, it was hard to keep it on her. Slowly, she has continued to improve throughout her hospital stay. We are having her being evaluated for home O2. She has had home O2 in the past. Her chest x-ray has showed improvement. Her breathing has improved. She has not had to use the BiPAP in 2 days. They have been able to wean her O2 back down to 2 L, and she will be discharged back home today with probable supplemental O2. VITAL SIGNS: Temperature is 98.9 degrees, heart rate 116, respirations 16, blood pressure 168/91, O2 is 98% on 2 L nasal cannula. DISCHARGE DIET: Healthy heart. DISCHARGE MEDICATIONS: 1. Remeron 15 mg p.o. at bedtime. 2. Creon 72,000 units p.o. before meals. 3. Cymbalta 60 mg p.o. daily. 4. Flonase 2 sprays nasal daily. 5. Fosamax 70 mg p.o. every 7 days. 6. [place] 7.5/325 p.o. every 4 to 6 hours p.r.n. pain. 7. Baclofen 10 mg p.o. t.i.d. 8. Ditropan XL 15 mg p.o. daily. 9. Colace 200 mg p.o. at bedtime. 10. Gabapentin 400 mg p.o. b.i.d. 11. Levaquin 750 mg p.o. at bedtime x7 tablets. 12. Medrol Dosepak 4 mg p.o. as directed. 13. NicoDerm patch 14 mg TD daily. FOLLOWUP: Ms. Mcnulty is being discharged back home with self-care. She is currently being evaluated for home O2. She is to take all medications as prescribed. She can return to the ED or call 911 for any worsening of symptoms. Dictated by NASREEN Kunz for Curtis Romano MD Addendum: Patient seen and examined by myself. Agree with NASREEN note. It reflects my assessment and plan. Patient is being discharged in stable condition. Follow up with his PCP in a week. cc: MD Yoandy Ribera MD [facility]
== END 2019-05-13 13:16 | disposition home or self-care (01) ==
LOC: P.ED 21:27 → DIRADM 23:09 → OPS 23:09 → P.MEDSURG 23:09
PROVIDERS: ADMIT Internal Medicine; ATTEND Internal Medicine

== ENCOUNTER 2019-06-03 04:09 | Inpatient (IN) ==
--- NOTE | 2019-06-03 03:59 | PROVIDER DOCUMENTATION ---
HPI-Respiratory General - General Stated Complaint: SOB Time Seen by Provider: 06/03/19 03:59 Source: patient, EMS Allergies/Adverse Reactions: Patient Allergies Allergy/AdvReac Type Severity Reaction Status Date / Time amoxicillin trihydrate * Allergy Intermediate RASH Verified 05/21/19 06:29 [From Augmentin] potassium clavulanate * Allergy Intermediate RASH Verified 05/21/19 06:29 [From Augmentin] nitrofurantoin Allergy ITCHING Verified 05/21/19 06:29 [From Macrobid] nitrofurantoin Allergy ITCHING Verified 05/21/19 06:29 macrocrystalline * [From Macrobid] Home Medications: Home Medication List Medication Instructions Recorded Confirmed Last Taken Type Alendronate [Fosamax] 70 mg PO Q7D 09/17/18 05/21/19 03/31/19 09:00 History Fluticasone 50 Mcg Nasal [place] 2 spray INTRANASAL DAILY 09/17/18 05/21/19 04/10/19 09:00 History [Flonase] Lipase/Protease/Amylase [Creon] 72,000 units PO AC 09/17/18 05/21/19 04/10/19 20:00 History Oxybutynin Chloride [Oxybutynin 15 mg PO DAILY 09/20/18 05/21/19 Unknown History Chloride ER] Docusate Sodium [Colace] 200 mg PO QHS cap 10/31/18 05/21/19 Unknown Rx Gabapentin 400 mg PO BID #60 cap 10/31/18 05/21/19 04/10/19 21:00 Rx Nicotine Patch [Nicoderm Patch] 14 mg TD DAILY patch.[id number] 10/31/18 05/21/19 Unknown Rx Baclofen [Lioresal] 10 mg PO TID 04/11/19 05/21/19 Unknown History Duloxetine HCl 60 mg PO DAILY 04/11/19 05/21/19 04/10/19 09:00 History Hydrocodone/Acetaminophen 7.5 mg PO Q4-6H PRN PRN 04/11/19 05/21/19 Unknown History [Hydrocodone-Acetamin 7.5-325] Mirtazapine [Remeron] 15 mg PO QHS 04/11/19 05/21/19 Unknown History Ciprofloxacin HCl [Cipro] 500 mg PO Q12H #14 tab 05/21/19 Unknown Rx - History of Present Illness-Resp Nature of Presenting Problem: Called 911 due to increasing SOB this evening, non-productive cough. EMS found patient on home O2 2L by NC with sats in the 80s, administered increased Fi02 and albuterol en route and sats increased to 92%. Also complains of urinary frequency, hesitancy, urgency today, with inability to urinate for the last 2 hours. States recently put on Cipro for UTI. Also notes acute exacerbation of chronic back pain, "I just can't get comfortable." Quality of Pain: reports: aching (in back) Severity in ED: reports: moderate Onset/Duration: reports: unsure, gradual, other (SOB this evening, back pain for "a long time") Timing: reports: still present, constant Context: reports: recent URI Exposure: reports: unknown cause Cough Quality/Degree: reports: moderate, dry cough Episode Frequency: frequent episodes (Has COPD) Current Respiratory Medication Therapy: Initiated albuterol/atrovent inhale, Initiated albuterol, Initiated other (home O2) Modifying Factors: improves with: albuterol nebulizer, oxygen, sitting upright. worse with: exertion Associated Symptoms: reports: cough, muscle/bodyaches, shortness of breath, short of breath, wheezing Similar Symptoms Previously?: Yes (Frequent admissions for COPD) Recently seen or treated by another doctor?: Yes (here 2 weeks ago for flank pain/UTI) Review of Systems - Adult - REVIEW OF SYSTEMS - ADULT Constitutional: reports: no symptoms reported Eyes: reports: no symptoms reported Ears, Nose, Mouth & Throat: reports: no symptoms reported Cardiovascular: reports: no symptoms reported Respiratory: reports: chronic cough, cough, dyspnea on exertion, shortness of breath, wheezing Gastrointestinal: reports: no symptoms reported Genitourinary: reports: see HPI, frequency, frequent UTI's, hesitency, urinary retention, urgency Musculoskeletal: reports: back pain (chronic, severe) Integumentary: reports: no symptoms reported Neurological: reports: no symptoms reported Psychiatric: reports: no symptoms reported Endocrine: reports: no symptoms reported Hematologic/Lymphatic: reports: no symptoms reported Allergic/Immunologic: reports: no symptoms reported All Other Systems: Reviewed and Negative Past History - Adult - PAST MEDICAL HISTORY-ADULT Review of Records: reports: Old Records Reviewed (Numerous ED visist, admissions for COPD, etc.), Nursing Assessment Review, Medications Reviewed, Social history reviewed & non-contributory. Major Childhood Illnesses: reports: denies history Cardiovascular: reports: cardiac disease, CHF Respiratory: reports: COPD, pneumonia Gastrointestinal: reports: denies history Obstetrical/Gynecological: reports: denies history Genitourinary: reports: chronic UTI's Musculoskeletal: reports: chronic pain (opioid depenedent), neck/back injury Neurological: reports: denies history Psychiatric: reports: anxiety Endocrine/Immune: reports: denies history Other Conditions: reports: denies history - PRIOR SURGERIES/PROCEDURES Surgical/Procedure History: reports: reviewed, not pertinent - IMMUNIZATION STATUS Childhood Immunizations: UTD Flu Vaccine: UTD - FAMILY HISTORY Family History: reviewed, not pertinent - SOCIAL HISTORY Smoking: cigarettes, greater than 1 pack/day Provider spent 3-5 mins advising pt. on dangers of tobacco.: Discussed manners to quit use, and f/u contacts for add'l counseling. Substance Use: none/never Alcohol Use Frequency: never Living Situation: family Physical Exam-General - PHYSICAL EXAM-ADULT Initial Vital Signs Reviewed: Yes (Tachycardic, tachypneic, anxious, shaky) - CONSTITUTIONAL General Appearance: alert, mild distress, cachetic, anxious - EYES Eyes: PERRL/EOMI, pink conjunctivae - HEAD, EARS, NOSE, MOUTH & THROAT HENMT: normocephalic/atraumatic, moist mucous membranes, normal ENT inspection - NECK Neck: non-tender, full range of motion, supple, normal inspection - RESPIRATORY Respiratory: chest non-tender, no pleuratic chest pain, respiratory distress (mild), decreased breath sounds, accessory muscle use, rhonchi, wheezing, prolonged expiration, increased rate - CARDIOVASCULAR Cardiovascular: normal peripheral pulses, regular rate, rhythm, no edema, no gallop, no JVD, no murmur, tachycardia - GASTROINTESTINAL (ABDOMEN) Abdominal Exam: normal bowel sounds, non tender, soft, no organomegaly, no pulsatile mass - LYMPHATIC Lymphatic: no adenopathy - MUSCULOSKELETAL Back Exam: no CVA tenderness, no vertebral tenderness, decreased range of motion , muscle spasm Extremity: normal range of motion, non-tender, normal inspection, no pedal edema , normal capillary refill - SKIN Integumentary: normal color, normal turgor, warm/dry - NEUROLOGIC Neurologic: intercell connector placer II-XII nml as tested, grossly normal, no motor/sensory deficits - PSYCHIATRIC Psych/Mental Status: normal mood/affect, normal thought content, normal thought process, oriented x 3 Progress - PLAN OF CARE/RESULTS Progress/Plan/Lab Results: Vital Signs - 8 hr 06/03/19 03:53 06/03/19 04:15 Temperature 97.8 F Pulse Rate 108 H 106 H Respiratory Rate 23 22 Blood Pressure 154/82 O2 Sat by Pulse Oximetry 100 100 Laboratory Results - last 24 hr 06/03/19 06/03/19 06/03/19 04:05 04:05 04:05 WBC 9.40 RBC 4.59 Hgb 12.5 Hct 40.3 MCV 87.8 MCH 27.2 MCHC 31.0 L RDW Std Deviation 23.7 H Plt Count 483 H MPV 9.6 Immature Gran % (Auto) 0.2 Neut % (Auto) 67.0 Lymph % (Auto) 22.2 [place] % (Auto) 8.6 Eos % (Auto) 1.6 Baso % (Auto) 0.4 Immature Gran # (Auto) 0.02 Neut # (Auto) 6.29 Lymph # (Auto) 2.09 [place] # (Auto) 0.81 H Eos # (Auto) 0.15 Baso # (Auto) 0.04 Segmented Neutrophils 70 Lymphocytes 18 L Monocytes 8 Eosinophils 4 Large Platelets 1+ Anisocytosis 1+ Stomatocytes 1+ PT INR PTT (Actin FS) Specimen Type Sample Site pH pCO2 pO2 HCO3 Base Excess Oxyhemoglobin ABG O2 Sat (Calculated) ABG O2 Saturation ABG Carboxyhemoglobin ABG Methemoglobin Abel Test A-a O2 Difference Total Hemoglobin Lactate Liter Flow Blood Gas Modality FiO2 % Sodium 139 Potassium 4.2 Chloride 96 L Carbon Dioxide 28 Anion Gap 16 BUN 9 Creatinine 0.3 L Estimated GFR/1.73 m2 > 60 BUN/Creatinine Ratio 30 Glucose 120 H Calculated Osmolality 277 Calcium 9.6 Magnesium 1.8 Total Bilirubin 0.30 AST 22 ALT 14 Alkaline Phosphatase 59 Creatine Kinase 73 Troponin T Mij-D-Segyaqcnxss Pept Total Protein 7.3 Albumin 4.8 Globulin 3.0 Albumin/Globulin Ratio 2.0 Plasma Lactate 1.1 Urine Source Urine Color Urine Turbidity Urine pH Ur Specific [place] Urine Protein Ur Glucose (Stick) Ur Ketones (Stick) Urine Blood Urine Nitrite Urine Bilirubin Urobilinogen Dipstick Urine Leukocytes Urine WBC (Auto) Urine RBC (Auto) U Epithel Cells (Auto) Urine Bacteria (Auto) 06/03/19 06/03/19 06/03/19 04:05 04:05 04:05 WBC RBC Hgb Hct MCV MCH MCHC RDW Std Deviation Plt Count MPV Immature Gran % (Auto) Neut % (Auto) Lymph % (Auto) [place] % (Auto) Eos % (Auto) Baso % (Auto) Immature Gran # (Auto) Neut # (Auto) Lymph # (Auto) [place] # (Auto) Eos # (Auto) Baso # (Auto) Segmented Neutrophils Lymphocytes Monocytes Eosinophils Large Platelets Anisocytosis Stomatocytes PT 11.6 INR 0.81 PTT (Actin FS) 29.7 Specimen Type Sample Site pH pCO2 pO2 HCO3 Base Excess Oxyhemoglobin ABG O2 Sat (Calculated) ABG O2 Saturation ABG Carboxyhemoglobin ABG Methemoglobin Abel Test A-a O2 Difference Total Hemoglobin Lactate Liter Flow Blood Gas Modality FiO2 % Sodium Potassium Chloride Carbon Dioxide Anion Gap BUN Creatinine Estimated GFR/1.73 m2 BUN/Creatinine Ratio Glucose Calculated Osmolality Calcium Magnesium Total Bilirubin AST ALT Alkaline Phosphatase Creatine Kinase Troponin T < 0.010 Jki-M-Ltkbssjsiup Pept 3511 H Total Protein Albumin Globulin Albumin/Globulin Ratio Plasma Lactate Urine Source Urine Color Urine Turbidity Urine pH Ur Specific [place] Urine Protein Ur Glucose (Stick) Ur Ketones (Stick) Urine Blood Urine Nitrite Urine Bilirubin Urobilinogen Dipstick Urine Leukocytes Urine WBC (Auto) Urine RBC (Auto) U Epithel Cells (Auto) Urine Bacteria (Auto) 06/03/19 06/03/19 04:32 04:43 WBC RBC Hgb Hct MCV MCH MCHC RDW Std Deviation Plt Count MPV Immature Gran % (Auto) Neut % (Auto) Lymph % (Auto) [place] % (Auto) Eos % (Auto) Baso % (Auto) Immature Gran # (Auto) Neut # (Auto) Lymph # (Auto) [place] # (Auto) Eos # (Auto) Baso # (Auto) Segmented Neutrophils Lymphocytes Monocytes Eosinophils Large Platelets Anisocytosis Stomatocytes PT INR PTT (Actin FS) Specimen Type ARTERIAL Sample Site R BRACHIAL pH 7.39 pCO2 41 pO2 65 HCO3 24.6 Base Excess -0.2 Oxyhemoglobin 86.9 L* ABG O2 Sat (Calculated) 13.6 L ABG O2 Saturation 89.8 L ABG Carboxyhemoglobin 2.40 ABG Methemoglobin 0.8 Abel Test NO A-a O2 Difference 83.0 Total Hemoglobin 11.1 L Lactate 1.40 Liter Flow 2.0 Blood Gas Modality [place] FiO2 % 28.0 Sodium Potassium Chloride Carbon Dioxide Anion Gap BUN Creatinine Estimated GFR/1.73 m2 BUN/Creatinine Ratio Glucose Calculated Osmolality Calcium Magnesium Total Bilirubin AST ALT Alkaline Phosphatase Creatine Kinase Troponin T Lwe-S-Kskkkudxebx Pept Total Protein Albumin Globulin Albumin/Globulin Ratio Plasma Lactate Urine Source CATH Urine Color YELLOW Urine Turbidity CLEAR Urine pH 7.0 Ur Specific [place] 1.019 Urine Protein NEGATIVE Ur Glucose (Stick) 100 A Ur Ketones (Stick) TRACE A Urine Blood NEGATIVE Urine Nitrite NEGATIVE Urine Bilirubin NEGATIVE Urobilinogen Dipstick NORMAL Urine Leukocytes NEGATIVE Urine WBC (Auto) <10 Urine RBC (Auto) <10 U Epithel Cells (Auto) <10 Urine Bacteria (Auto) NEGATIVE Orders Category Date Time Status Cardiac Monitoring DIRECTED Care 06/03/19 03:59 Active Salazar Cath Insertion ORDERED Care 06/03/19 04:39 Active IV Insertion ORDERED Care 06/03/19 03:59 Completed Notify Physician As Ordered Care 06/03/19 03:59 Active CHEST-1 VIEW [RAD] Stat Exams 06/03/19 03:59 Taken ABG [RESP] Routine Lab 06/03/19 04:43 Completed BLOOD CULTURE [BLDCUL] Stat Lab 06/03/19 04:05 Ordered CBC WITH DIFF [HEME] Stat Lab 06/03/19 04:05 Completed CK PROFILE [SP CHEM] Stat Lab 06/03/19 04:05 Completed COMPREHENSIVE METABOLIC PANEL [CHEM] Stat Lab 06/03/19 04:05 Completed LACTATE, PLASMA [CHEM] Lab 06/03/19 07:00 Uncollected LACTATE, PLASMA [CHEM] Lab 06/03/19 10:00 Uncollected LACTATE, PLASMA [CHEM] Q3H Lab 06/03/19 04:05 Completed MAGNESIUM [CHEM] Stat Lab 06/03/19 04:05 Completed PRO B-NATRIURETIC PEPTIDE Stat Lab 06/03/19 04:05 Completed PROTIME WITH INR [COAG] Stat Lab 06/03/19 04:05 Completed PTT [COAG] Stat Lab 06/03/19 04:05 Completed SPUTUM CULTURE WITH GRAM STAIN [RM] Stat Lab 06/03/19 04:03 Uncollected TROPONIN T Stat Lab 06/03/19 04:05 Completed URINALYSIS W/POSS RFLX CULT [URINALYSIS] Stat Lab 06/03/19 04:32 Completed 0.9% Sodium Chloride Inj [Ns] 1,000 ml Med 06/03/19 04:04 Discontinued IV 999 mls/hr Albuterol 2.5MG/Ipratrop 0.5MG [Duoneb (A & A)] Med 06/03/19 04:03 Discontinued 9 ml INH NOW ONE Furosemide [Lasix] Med 06/03/19 05:15 Discontinued 40 mg IV NOW ONE Levofloxacin 500 mg/D5w [Levaquin 500 mg/D5w] Med 06/03/19 04:05 Discontinued 500 mg in 100 ml IV NOW Methylprednisolone Sod Succ [Solu-Medrol] Med 06/03/19 04:03 Discontinued 60 mg IV NOW ONE Morphine Med 06/03/19 04:08 Discontinued 2 mg IV NOW ONE Ondansetron [Zofran] Med 06/03/19 04:08 Discontinued 4 mg IV NOW ONE Vancomycin 1 gm/Ns Med 06/03/19 04:15 Discontinued 1 gm in 250 ml IV NOW Aerosol Treatments Routine Oth 06/03/19 04:04 Active Aerosol Treatments Stat Oth 06/03/19 04:04 Active Oxygen Device Stat Oth 06/03/19 03:59 Active Result Diagrams: 06/03/19 04:05 06/03/19 04:05 - REASSESSMENT Reassessment #1 Time Reassessed: 05:18 Status: improving (O2 increased to 4L, given duoneb x 3, IV lasix, iv solumedrol, IV vanc/levaquin) - EKG 1 Time of EKG reading by physician:: 05:10 EKG Read and Signed by:: Angelito Perales EKG Interpretation (*Must complete 3 of following elements*): Abnormal Rate: 103 Rhythm: sinus tach [place]: right QRS: poor R wave progression [place] Interval: shortened ST Wave: non-specific ST changes Prior EKG Comparison: unchanged from prior - XRAY 1 XRAY Study: Chest Impression: Abnormal (Significant COPD, post-op changes, no obvious infiltrate) - CONSULTS/PCP/HOSPITALIST Notification #1 *Consult/PCP/Hospitalist*: Demetrio Time Discussed: 05:21 Consult Disposition: Admit Departure - Departure Date of Disposition Decision: 06/03/19 Time of Disposition Decision: 05:19 DIAGNOSIS: Respiratory distress, Hypoxemia, COPD with exacerbation, Chronic pain disorder Acute exacerbation of CHF (congestive heart failure) Qualifiers: Heart failure type: combined systolic and diastolic Qualified Code(s): I50.43 - Acute on chronic combined systolic (congestive) and diastolic (congestive) heart failure Disposition: ADMITTED INPATIENT 09 Certified Medical Emergency: Emergent Condition: Fair Referrals and Follow-Ups: None,PCP [Primary Care Provider] - - Critical Care Note This patient required my direct & personal management of CC.: Yes Total Time (mins): 40 Critical Care Statement: This patient required my direct personal management to treat or rule out processes, the absence of which, could potentiallly result in sudden, clinically significant life or limb threatening deterioration. Attestation - Physician/ FRANKIE Attestation Patient care was provided by Advanced Practice Provider:: No The physician spent face to face time with patient:: Yes Advanced Practice Provider documentation review:: Supervising physician onsite and consulted in the evaluation and care of this patient. The physician did have a face to face encounter with the patient.
[~2019-06-03 04:09] MED LIST: DUONEB (A & A) INH ONE; LEVAQUIN 500 MG/D5W 500 MG/100 ML IVPB IV ONE; MORPHINE IV ONE; NS 1,000 ML IV ONE; SOLU-MEDROL IV ONE; VANCOMYCIN 750 MG in NS 150 ML IV ONE; ZOFRAN IV ONE
[2019-06-03] MEDS ORDERED: VANCOMYCIN 1 GM/NS 1 GM/250 ML IVPB IV ONE ×2 (04:13→04:15)
[2019-06-03 04:36] LABS: URINE SOURCE CATH
[2019-06-03 04:38] LABS: BILIRUBIN URINE NEGATIVE (NEGATIVE); BLOOD URINE NEGATIVE (NEGATIVE); COLOR YELLOW; GLUCOSE URINE 100 mg/dL (NEGATIVE); KETONE URINE TRACE mg/dL (NEGATIVE); LEUKOCYTES URINE NEGATIVE (NEGATIVE); NITRITE URINE NEGATIVE (NEGATIVE); PROTEIN URINE NEGATIVE (NEGATIVE); SP GRAVITY URINE 1.019; TURBIDITY URINE CLEAR (CLEAR); UROBILINOGEN URINE NORMAL (NORMAL)
[2019-06-03 04:39] LABS: UR EPITHELIAL CELLS <10 /HPF (<10); URINE BACTERIA NEGATIVE /HPF; URINE RBC <10 /HPF (<10); URINE WBC <10 /HPF (<10)
[2019-06-03 04:42] LABS: BASO# 0.04 X1000 (0.0-0.2); BASO% 0.4 % (0.0-0.8); EOS# 0.15 X1000 (0.0-0.7); EOS% 1.6 % (0.0-10.0); HEMATOCRIT 40.3 % (37.0-47.0); HEMOGLOBIN 12.5 g/dL (12.0-16.0); IMM GRAN# 0.02 X1000 (0.0-0.04); IMM GRAN% 0.2 % (0.0-0.5); LYMPH# 2.09 X1000 (1.2-3.4); LYMPH% 22.2 % (20.5-51.1); MCH 27.2 PG (27-31); MCV 87.8 FL (81-99); MONO# 0.81 X1000 (0.11-0.59); MONO% 8.6 % (1.7-9.3); MPV 9.6 FL (7.4-10.4); NEUT# 6.29 X1000 (1.4-6.5); PLT 483 X1000 (130-400); RBC 4.59 XMIL (4.2-5.4); RDW 23.7 % (11.5-14.5)
[2019-06-03 04:46] LABS: AGAP 16; ALBUMIN 4.8 g/dL (3.5-5.0); ALKALINE PHOSPHATASE 59 U/L (32-104); BUN 9 mg/dL (8-22); CALCIUM 9.6 mg/dL (8.8-10.2); CHLORIDE 96 mmol/L (98-107); CK PROFILE 73 U/L (24-173); COSMO 277; CREATININE 0.3 mg/dL (0.5-0.9); ESTIMATED GFR > 60; GLUCOSE 120 mg/dL (70-104); GOT 22 U/L (10-30); GPT 14 U/L (10-36); MAGNESIUM 1.8 mg/dL (1.5-2.7); POTASSIUM 4.2 mmol/L (3.5-5.1); SODIUM 139 mmol/L (136-145); TCO2 28 mmol/L (25-35); TOTAL PROTEIN 7.3 g/dL (6.3-8.3)
[2019-06-03 04:51] LABS: INR 0.81; PROTIME 11.6 Seconds (11.0-16.0)
[2019-06-03 04:52] LABS: PTT 29.7 Seconds (22.3-41.8)
[2019-06-03 05:00] LABS: ANISOCYTOSIS 1+; EOS 4 % (1-10); LARGE PLATELETS 1+; LYMPHS 18 % (21-51); MONO 8 % (1-9); SEGS 70 % (42-75); STOMATOCYTES 1+
[2019-06-03 05:06] LABS: BE -0.2 mmoll (-3.0-3.0); BLOOD TYPE ARTERIAL; HCO3-(ACT) 24.6 mmoll (20.0-26.0); METHB 0.8 % (0.0-1.5); O2(CT) 13.6 mL/dL (15.0-23.0); PCO2(98.6) 41 mmHg (35-45); PO2(98.6) 65 mmHg (60-100); SAMPLE BLOOD; SAO2 89.8 % (95.0-100.0); THB 11.1 g/dL (11.5-17.4); pH(98.6) 7.39 (7.35-7.45)
[2019-06-03 05:08] LABS: MODALITY CANNULA; O2HB 86.9 % (95.0-99.0)
[2019-06-03 05:09] LABS: ALLEN TEST NO
[2019-06-03] MEDS ORDERED: LASIX IV ONE (05:15)
[2019-06-03] MEDS ORDERED: TYLENOL PO PRN ×2 (05:21→06:48)
[2019-06-03] MEDS ORDERED: ZOFRAN IV PRN (05:21)
--- NOTE | 2019-06-03 06:45 | EKG Report ---
Test Performed on : 06/03/2019 04:11:20 AM Test Reason : SOB Blood Pressure : / mmHG Vent. Rate : 103 BPM Atrial Rate : 103 BPM P-R Int : 100 ms QRS Dur : 074 ms QT Int : 370 ms P-R-T Axes : 107 094 269 degrees QTc Int : 484 ms Suspect arm lead reversal, interpretation assumes no reversal Sinus tachycardia. with short MS with premature atrial complexes. Lateral infarct (cited on or before 11-APR-2019) ST & T wave abnormality, consider inferior ischemia Abnormal ECG When compared with ECG of 08-MAY-2019 22:59, premature atrial complexes. are now present Questionable change in initial forces of Anterolateral leads T wave inversion now evident in Inferior leads T wave inversion now evident in Lateral leads Unconfirmed Result
[2019-06-03] MEDS ORDERED: DUONEB (A & A) INH PRN (06:48)
--- NOTE | 2019-06-03 07:47 | Diag Imaging Result Doc PS360 ---
EXAM: CHEST-1 VIEW - 06/03/2019 HISTORY: sob TECHNIQUE: One view chest COMPARISON: 05/21/2019 FINDINGS: Heart size is normal. The lungs appear less hyperexpanded compared to prior. There are multiple small granulomas from old granulomatous disease similar to prior. There is no consolidation or pleural effusion identified. There is mild skinfold artifact over the lateral left chest. There is no pneumothorax identified. IMPRESSION: Decrease hyperexpansion of lungs compared to prior. No other acute changes. Electronically signed by Laith Jimenez 06/03/2019 7:44 AM
[2019-06-03] MEDS: DUONEB (A & A) INH SCH ×5 (07:56→23:04)
[2019-06-03] MEDS: BUSPAR PO SCH ×2 (08:37→20:49)
[2019-06-03] MEDS: MOBIC PO SCH (08:37)
[2019-06-03] MEDS: NORCO-7.5 PO PRN ×2 (08:37→20:50)
[2019-06-03] MEDS: NEURONTIN PO SCH ×2 (08:37→20:49)
[2019-06-03] MEDS: FLEXERIL PO SCH ×3 (08:37→20:50)
[2019-06-03] MEDS: CYMBALTA PO SCH (08:37)
[2019-06-03] MEDS ORDERED: SALINE LOCK IV FLUID XX ONE (09:07)
[2019-06-03] MEDS: NS 1,000 ML IV SCH ×2 (11:59→20:50)
[2019-06-03] MEDS: XANAX PO PRN ×2 (11:59→22:46)
[2019-06-03] MEDS: CREON PO SCH ×4 (12:00→18:42)
[2019-06-03] MEDS: SOLU-MEDROL IV SCH ×2 (12:00→20:49)
--- NOTE | 2019-06-03 12:44 | HISTORY AND PHYSICAL ---
ADDENDUM: ASSESSMENT AND PLAN: Ms. Mcnulty is neurologically intact. Resuscitation status, living will discussed with the patient. She states she does not have a living will but she does not wish to have chest compressions or breathing tube if that was to happen. This was discussed at length and we will order a palliative care consult to discuss her goals of care. We will order her a Do Not Resuscitate level 1. Should she change her mind, we will change that order as well. Dictated by NASREEN Huber for Rodríguez Verde MD cc: NASREEN Huber MD
--- NOTE | 2019-06-03 12:51 | HISTORY AND PHYSICAL ---
PRIMARY CARE PROVIDER: Yoandy Benedict. CHIEF COMPLAINT: Shortness of breath, difficulty urinating, and lower back pain. HISTORY OF PRESENT ILLNESS: Ms. Yolanda Mcnulty is a 63-year-old female with a medical history of COPD on 2 L home oxygen, ulcerative colitis, interstitial cystitis, anorexia, chronic back pain with chronic opioid use, pancreatic insufficiency, who was actually here back in April with complaints of urinary retention, shortness of breath, and at that time was treated for the urinary retention and for COPD exacerbation, is back with complaints of the same symptoms. She does have a elevated proBNP, so they gave her Lasix for fluid volume overload, but she was also treated with nebulizers and steroids, and she has been started on Levaquin for COPD exacerbation as well. Imaging does not show any signs of pneumonia. We will treat her for her acute on chronic pain and her COPD exacerbation. PAST MEDICAL HISTORY: 1. Urinary retention. 2. Interstitial cystitis. 3. Ulcerative colitis, which she states added to her anorexia. 4. Severe anorexia. 5. COPD with 2 L of home oxygen. 6. Chronic back pain secondary to scoliosis and multiple back surgeries. 7. Chronic opioid use with chronic constipation. 8. Osteoporosis. 9. Depression. 10. Pancreatic insufficiency secondary to calcified spots. She claims she has not been taking her medications since December, but should be able to start resuming her medications in June with her insurance. SURGICAL HISTORY: 1. Three back surgeries for scoliosis correction. 2. Total arthroplasty of the right hip. SOCIAL HISTORY: One pack per day smoker for 30+ years. Denies alcohol or illicit drug use. Uses a walker at home sometimes. Lives with her son and brother. She is on disability. FAMILY HISTORY: Mother had hypertension. ALLERGIES: Augmentin, Macrobid, sensitivity to steroids, which makes her more jittery. HOME MEDICATIONS: 1. Remeron 15 mg p.o. nightly. 2. Buspirone on 15 mg p.o. twice daily. 3. Creon 72,000 units p.o. 30 minutes before meals. 4. Cymbalta 60 mg p.o. daily. 5. Flexeril 10 mg p.o. t.i.d. 6. Flonase. 7. Fosamax 70 mg p.o. every 7 days on Sundays. 8. Neurontin 400 mg p.o. twice daily. 9. [place] 7.5 four times a day. 10. Mobic 15 mg p.o. daily. 11. Colace 200 mg p.o. nightly. REVIEW OF SYSTEMS: Fourteen-point review of systems are complete, and all were negative for those mentioned above HPI. She states her symptoms started yesterday evening with a nonproductive cough. Apparently, her sats had dropped down to the 80s on 2 L nasal cannula. Also has urinary retention symptoms, was recently on Cipro for urinary tract infection. She is complaining of anxiety and depression since her 03/21/2019, and she recently lost her oldest brother. PHYSICAL EXAMINATION: VITAL SIGNS: Temperature 98.3 degrees, heart rate 115, respiratory rate 24, blood pressure 125/62, O2 saturation 96% on 3 L nasal cannula. 5 foot 0 inch tall, 70 pounds. BMI is 13.7. GENERAL: Ms. Yolanda Mcnulty is a 63-year-old female. She is in no acute distress. HEENT: Atraumatic, normocephalic. Pupils equal, round, reactive to light. Extraocular movements intact. Mucous membranes are dry. NECK: Trachea midline. CARDIOVASCULAR: S1, S2. Tachycardic rate and rhythm. No rubs, gallops, or murmurs. No lower extremity edema. Plus 2 dorsalis and radial pulses. Negative for JVD or carotid bruits. PULMONARY: Clear to auscultate, bilateral breath sounds. No accessory muscle use or work of breathing noted. Mild tachypnea but tolerating 3 L of nasal cannula. There is no wheezing noted. No adventitious breath sounds. GI: Soft, nontender, nondistended. Positive bowel sounds x4. EXTREMITIES: Moves all extremities equally with full range of motion. NEUROLOGIC: A and O x3. Follows commands. Sensory is intact. SKIN: Warm, dry, intact. LABORATORY DATA: White blood cells 9000, hemoglobin 12, hematocrit 40, platelet count 483,000. INR 0.81, PTT 29.7. D-dimer 0.52. ABGs on 2 L nasal cannula, pH 7.39, pCO2 41, PO2 65, bicarb 24, base excess negative 0.2. Saturation 87%. Lactate 1.4. Sodium 139, potassium 4.2, BUN 9, creatinine 0.3, glucose 120, calcium 9.6, magnesium 1.8, bilirubin 0.30, AST 22, ALT 14. CK 73, troponin less than 0.01. ProBNP is 3511. Albumin is 4.8. Serum lactate 1.1 and then up to 2.1. Urinalysis with 100 glucose, trace ketones. IMAGING: Chest x-ray, decreased hyperexpansion of lungs compared to prior. No other acute changes. EKG sinus tach, rate 103, QTc is 484. ASSESSMENT/PLAN: 1. Acute hypoxemic respiratory failure on top of COPD exacerbation without CO2 retention. 2 L home oxygen increased to 3 L. Nebulizers added, steroids added, and she is breathing much better. 2. Reported acute congestive heart failure, systolic versus diastolic. Her last echocardiogram was in March. She had a normal ejection fraction. She does have elevated pulmonary pressures, so a little pulmonary artery hypertension with 44 mmHg reported systolic, and diastolic function was probably normal, so no real history of congestive heart failure. However, her proBNP was elevated, and she received Lasix, and it looks like in March and April, her proBNP was 381, another was 957, but early this morning at 4:00, it was 3511. She got one time 40 of Lasix. We will not continue that. She actually appears dry now. 3. Acute on chronic back pain. She has 2 of morphine q.2 hours p.r.n. She also has her Flexeril and her Mobic and that is it for now. She is also on [place]. 4. Complaints of urinary retention. She currently has a Salazar catheter in place. 5. Pancreatic insufficiency. Continue Creon. 6. Depression. Continue Cymbalta and BuSpar. 7. Chronic constipation. Continue docusate. 8. Deep venous thrombosis prophylaxis with SCDs. Dictated by NASREEN Huber for Rodríguez Verde MD cc: NASREEN Huber MD
[2019-06-03] MEDS: COLACE PO SCH ×2 (20:49→22:48)
[2019-06-03] MEDS: ZOFRAN IV PRN (20:49)
[2019-06-03] MEDS: REMERON PO SCH (20:50)
[2019-06-04] MEDS: DUONEB (A & A) INH SCH ×6 (03:36→22:55)
[2019-06-04] MEDS: SOLU-MEDROL IV SCH ×3 (04:21→21:20)
[2019-06-04] MEDS: LEVAQUIN 500 MG/D5W 500 MG/100 ML IVPB IV SCH (04:21)
[2019-06-04] MEDS: CREON PO SCH ×4 (06:23→14:15)
[2019-06-04] MEDS: NORCO-7.5 PO PRN ×4 (06:23→18:37)
[2019-06-04 06:43] LABS: HEMATOCRIT 34.7 % (37.0-47.0); HEMOGLOBIN 10.3 g/dL (12.0-16.0); MCH 26.8 PG (27-31); MCHC 29.7 g/dL (33-37); MCV 90.1 FL (81-99); MPV 10.1 FL (7.4-10.4); RBC 3.85 XMIL (4.2-5.4); WBC 8.27 X1000 (4.8-10.8)
[2019-06-04 07:44] LABS: AGAP 11; ALBUMIN 3.8 g/dL (3.5-5.0); ALKALINE PHOSPHATASE 46 U/L (32-104); BUN 14 mg/dL (8-22); CALCIUM 8.7 mg/dL (8.8-10.2); CHLORIDE 104 mmol/L (98-107); COSMO 287; CREATININE 0.3 mg/dL (0.5-0.9); ESTIMATED GFR > 60; GLUCOSE 155 mg/dL (70-104); GOT 22 U/L (10-30); GPT 11 U/L (10-36); POTASSIUM 5.2 mmol/L (3.5-5.1); SODIUM 142 mmol/L (136-145); TCO2 27 mmol/L (25-35); TOTAL PROTEIN 5.9 g/dL (6.3-8.3)
--- NOTE | 2019-06-04 08:45 | HISTORY AND PHYSICAL ---
ADDENDUM REPORT: Patient presented to the hospital with increased work of breathing, shortness of breath. Notes that she has really not been taking good care of herself. She has continued to lose weight. Notes that she does not eat very much. She stopped drinking Ensure at home. She has a known history of congestive heart failure, chronic pain and opiate dependence, as well as COPD. We are going to admit her to the hospital, breathing treatments, oxygen, steroids. Certainly need to consider Boost at least once a day if not twice a day, and we will continue to follow. cc: Rodríguez Verde MD
[2019-06-04] MEDS: XANAX PO PRN ×3 (08:57→21:22)
[2019-06-04] MEDS: FLEXERIL PO SCH ×3 (08:57→21:22)
[2019-06-04] MEDS: CYMBALTA PO SCH (08:58)
[2019-06-04] MEDS: BUSPAR PO SCH ×2 (08:58→21:21)
[2019-06-04] MEDS: NEURONTIN PO SCH ×2 (08:58→21:22)
[2019-06-04] MEDS: MOBIC PO SCH (08:58)
[2019-06-04] MEDS: FLONASE NAS SCH (09:05)
[2019-06-04] MEDS ORDERED: KAYEXALATE PO ONE (11:28)
[2019-06-04] MEDS: NS 1,000 ML IV SCH (15:31)
--- NOTE | 2019-06-04 15:59 | PROGRESS NOTE ---
DATE: 06/04/2019 SUBJECTIVE: Patient reports still feeling short of breath, better in comparing with yesterday according to her. Denies any fever or chills. OBJECTIVE: Vital Signs: Temperature 98.4, heart rate 106, respiratory rate 16, blood pressure 125/68, O2 saturation 99% 3 L nasal cannula. General Examination: This is a chronically ill appearing, malnourished 63-year-old female lying in bed, in no acute distress. Cardiovascular: S1, S2 heard. No murmurs, gallops, or rubs. Regular rate and rhythm. Respiratory: Exam mildly tachypneic with minimal wheezing in both pulmonary bases. Patient not using any accessory muscles or having work of breathing. Abdomen: Soft, nontender to palpation. Nondistended. Bowel sounds present. No organomegaly. Extremities: No clubbing, cyanosis, or edema. Peripheral pulses present in both legs. Neurological: Patient alert, oriented x3. Moves 4 extremities. LABORATORY DATA: White cell count 8.37, hemoglobin 10.3, hematocrit 34.7, platelets 380,000 with BMP that shows potassium 5.2, creatinine 0.3. ASSESSMENT AND PLAN: 1. Acute hypoxemic respiratory failure secondary to chronic obstructive pulmonary disease exacerbation. Patient continues to smoke few cigarettes. Patient reports breathing better. We will continue with breathing treatments and intravenous steroids. 2. Diastolic heart failure with pulmonary hypertension. We will continue with Lasix. 3. Acute on chronic back pain. Patient continues to take [place] at home every 4 hours and even though that has been prescribed p.r.n., she takes it every 4 hours while she is awake. I recommended to her that she tries to use it just as needed but she reports that she definitely needs it every 4 hours every single day. Her primary care physician has changed actually the [place] for Percocet. At this point, we will keep her on [place] considering her chronic respiratory failure. The patient educated about the risk of taking benzodiazepines and opiate medication in a patient with chronic respiratory failure. The patient acknowledged understanding. 4. Urinary retention. Patient has a Salazar catheter. 5. Depressive disorder. We will continue with Cymbalta. 6. Chronic constipation. We will continue with docusate. cc: Curtis Romano MD
[2019-06-04] MEDS: REMERON PO SCH (21:22)
[2019-06-04] MEDS: COLACE PO SCH (21:22)
[2019-06-05] MEDS: NORCO-7.5 PO PRN ×5 (00:43→23:19)
[2019-06-05] MEDS: DUONEB (A & A) INH SCH ×6 (03:12→23:51)
[2019-06-05] MEDS: LEVAQUIN 500 MG/D5W 500 MG/100 ML IVPB IV SCH (04:47)
[2019-06-05] MEDS: XANAX PO PRN ×3 (04:47→22:06)
[2019-06-05] MEDS: CREON PO SCH ×11 (04:48→18:10)
[2019-06-05] MEDS: SOLU-MEDROL IV SCH ×3 (04:48→19:52)
[2019-06-05] MEDS: NS 1,000 ML IV SCH ×3 (04:49→19:51)
[2019-06-05 07:12] LABS: POTASSIUM 5.2 mmol/L (3.5-5.1); SODIUM 141 mmol/L (136-145)
[2019-06-05 07:13] LABS: AGAP 10; BUN 15 mg/dL (8-22); CALCIUM 8.9 mg/dL (8.8-10.2); CHLORIDE 101 mmol/L (98-107); COSMO 284; CREATININE 0.2 mg/dL (0.5-0.9); GLUCOSE 140 mg/dL (70-104); TCO2 30 mmol/L (25-35)
[2019-06-05 07:14] LABS: ALKALINE PHOSPHATASE 52 U/L (32-104); GOT 21 U/L (10-30); GPT 16 U/L (10-36); TOTAL PROTEIN 6.5 g/dL (6.3-8.3)
[2019-06-05 07:16] LABS: ESTIMATED GFR > 60
[2019-06-05 07:38] LABS: HEMOGLOBIN 11.5 g/dL (12.0-16.0); RBC 4.33 XMIL (4.2-5.4); WBC 14.33 X1000 (4.8-10.8)
[2019-06-05 07:39] LABS: LYMPH# 1.07 X1000 (1.2-3.4); LYMPH% 7.5 % (20.5-51.1); MCH 26.6 PG (27-31); MCHC 29.3 g/dL (33-37); MCV 90.8 FL (81-99); MONO# 0.37 X1000 (0.11-0.59); MONO% 4.7 % (1.7-9.3); MPV 9.7 FL (7.4-10.4); NEUT# 12.58 X1000 (1.4-6.5); NEUT% 87.7 % (42.2-75.2); PLT 435 X1000 (130-400); RDW 24.4 % (11.5-14.5)
[2019-06-05 07:40] LABS: LYMPHS 7 % (21-51); MONO 3 % (1-9); SEGS 90 % (42-75)
[2019-06-05] MEDS: MOBIC PO SCH (09:39)
[2019-06-05] MEDS: FLEXERIL PO SCH ×4 (09:39→23:20)
[2019-06-05] MEDS: CYMBALTA PO SCH (09:40)
[2019-06-05] MEDS: BUSPAR PO SCH ×3 (09:40→23:19)
[2019-06-05] MEDS: FLONASE NAS SCH (09:40)
[2019-06-05] MEDS: NEURONTIN PO SCH ×3 (09:40→23:20)
--- NOTE | 2019-06-05 10:46 | PROGRESS NOTE ---
DATE: 06/05/2019 SUBJECTIVE: The patient reports feeling less shortness of breath. Denies any fever or chills. OBJECTIVE: Vital Signs: Temperature 98 degrees, heart rate 100, respiratory rate 18, blood pressure 167/82, O2 saturation 96% on 3 L nasal cannula. General: This is a chronically ill- appearing and malnourished 63-year-old female lying in bed, in no acute distress. Cardiovascular: S1, S2 heard. No murmurs, gallops, or rubs. Regular rate and rhythm. Respiratory: Definitely less tachypneic with minimal wheezing still noted in both pulmonary bases. Patient not using any accessory muscles or having work of breathing. Abdomen: Soft, nontender to palpation. Nondistended. Bowel sounds present. No organomegaly. Extremities: No clubbing, cyanosis, or edema. Peripheral pulses present in both legs. Neurological: Patient is alert oriented x3. Moves 4 extremities. LABORATORY DATA: Reviewed. ASSESSMENT AND PLAN: 1. Acute hypoxemic respiratory failure secondary to chronic obstructive pulmonary disease exacerbation. As we mentioned yesterday, patient continues to smoke a few cigarettes. Patient reports breathing better. I think at this point, we will continue with breathing treatments and IV steroid that has caused elevation white cell count but definitely this patient needs to be on the steroids. We will continue with the same management. 2. Diastolic heart failure with pulmonary hypertension. The patient will continue with Lasix. She is having good diureses. We will continue with the same management. 3. Acute on chronic back pain. The patient continues to require pain medications while she is awake every 4 hours. I explained again to her that the patient needs to use this medication only as needed but unfortunately, she is requiring every single day every 4 hours. At this point, we will continue to monitor this patient closely. As we mentioned before, she is aware of the long-term consequence of taking pain medications on a daily basis. 4. Urinary retention. Patient has a Salazar catheter but she wants to see if she is able to void without that, so we will clamp the Salazar catheter, then we will remove it. 5. Depressive disorder. We will continue with Cymbalta. 6. Chronic constipation. This is secondary to chronic opiate use. We will continue with docusate. cc: Curtis Romano MD
[2019-06-05] MEDS: COLACE PO SCH ×2 (19:52→23:20)
[2019-06-05] MEDS: REMERON PO SCH ×2 (19:52→23:20)
[2019-06-06] MEDS: NS 1,000 ML IV SCH ×3 (02:43→18:43)
[2019-06-06] MEDS ORDERED: BLISTEX MEDICATED BERRY LIP BALM TOP PRN (02:44)
[2019-06-06] MEDS: LEVAQUIN 500 MG/D5W 500 MG/100 ML IVPB IV SCH (04:08)
[2019-06-06] MEDS: SOLU-MEDROL IV SCH ×3 (04:09→21:08)
[2019-06-06] MEDS: DUONEB (A & A) INH SCH ×6 (04:44→23:00)
[2019-06-06] MEDS: NORCO-7.5 PO PRN ×5 (05:06→23:19)
[2019-06-06 06:21] LABS: HEMATOCRIT 37.2 % (37.0-47.0); HEMOGLOBIN 10.9 g/dL (12.0-16.0); IMM GRAN# 0.03 X1000 (0.0-0.04); IMM GRAN% 0.3 % (0.0-0.5); LYMPH# 1.27 X1000 (1.2-3.4); LYMPH% 10.9 % (20.5-51.1); MCH 26.6 PG (27-31); MCHC 29.3 g/dL (33-37); MCV 90.7 FL (81-99); MONO# 0.74 X1000 (0.11-0.59); MONO% 6.4 % (1.7-9.3); MPV 10.1 FL (7.4-10.4); NEUT# 9.59 X1000 (1.4-6.5); NEUT% 82.4 % (42.2-75.2); PLT 401 X1000 (130-400); RDW 24.4 % (11.5-14.5); WBC 11.63 X1000 (4.8-10.8)
[2019-06-06 06:34] LABS: AGAP 10; ALBUMIN 3.6 g/dL (3.5-5.0); ALKALINE PHOSPHATASE 45 U/L (32-104); BUN 16 mg/dL (8-22); CALCIUM 8.8 mg/dL (8.8-10.2); CHLORIDE 98 mmol/L (98-107); COSMO 278; CREATININE 0.3 mg/dL (0.5-0.9); ESTIMATED GFR > 60; GLUCOSE 149 mg/dL (70-104); GOT 18 U/L (10-30); GPT 16 U/L (10-36); POTASSIUM 4.3 mmol/L (3.5-5.1); SODIUM 137 mmol/L (136-145); TCO2 29 mmol/L (25-35)
[2019-06-06] MEDS: CREON PO SCH ×6 (06:38→17:15)
--- NOTE | 2019-06-06 07:20 | Diag Imaging Result Doc PS360 ---
EXAM: CHEST-2 VIEWS - 06/06/2019 HISTORY: copd, chf TECHNIQUE: Chest two views COMPARISON: 06/03/2019 one view chest, 05/21/2019 chest two views FINDINGS: Heart size is normal. There are apparent COPD changes with hyperexpanded lungs. The lungs appear more hyperexpanded compared to 06/03/2019, but less hyperexpanded compared to 05/21/2019. There are multiple small granulomas from old granulomatous disease similar to prior. The lungs otherwise appear clear. There are symmetrical nipple shadow artifacts noted over the lower lungs on the PA view. There is no pleural effusion or pneumothorax identified. IMPRESSION: Apparent COPD changes with hyperexpanded lungs. No other evidence of acute disease. Electronically signed by Laith Jimenez 06/06/2019 7:17 AM
[2019-06-06] MEDS: NEURONTIN PO SCH ×2 (08:43→21:09)
[2019-06-06] MEDS: FLEXERIL PO SCH ×3 (08:44→21:09)
[2019-06-06] MEDS: CYMBALTA PO SCH (08:44)
[2019-06-06] MEDS: BUSPAR PO SCH ×2 (08:44→21:08)
[2019-06-06] MEDS: MOBIC PO SCH (08:44)
[2019-06-06] MEDS: XANAX PO PRN ×3 (08:47→23:19)
[2019-06-06] MEDS: FLONASE NAS SCH (09:00)
[2019-06-06] MEDS: MORPHINE IV PRN ×2 (09:58→14:38)
--- NOTE | 2019-06-06 12:19 | PROGRESS NOTE ---
DATE: 06/06/2019 SUBJECTIVE: Patient reports feeling fine. We removed the Salazar catheter yesterday and she reports that she can void by herself. She reports less short of breath when she walks to the bathroom. She reports eating better. OBJECTIVE: Vital Signs: Temperature 98.0 degrees, heart rate 51, respiratory rate 18, blood pressure 159/93, O2 saturation 98% 3 L nasal cannula. General examination: This is a chronically ill-appearing, malnourished, 63-year-old female, lying in bed in no acute distress. Cardiovascular: S1, S2 heard. No murmurs, gallops, or rubs. Regular rate and rhythm. Respiratory exam: Clear bilaterally to auscultation. Minimal wheezing in both pulmonary bases. Patient not using any accessory muscles or having work of breathing. Abdomen: Soft, nontender to palpation. Bowel sounds present. No organomegaly. Extremities: No clubbing, cyanosis, or edema. Muscle wasting noted. Neurological exam: Patient alert and oriented x3. Moves 4 extremities. LABORATORY DATA: Reviewed. ASSESSMENT AND PLAN: 1. Acute hypoxemic respiratory failure secondary to chronic obstructive pulmonary disease exacerbation. Clinically, patient is looking better. Unfortunately she continues to smoke 3 cigarettes daily. At this point, we will continue with breathing treatments and intravenous steroids. I think if she continues to improve, she can be discharged tomorrow. 2. Diastolic heart failure with pulmonary hypertension. The patient is on Lasix. Will continue with same management. 3. Urinary retention. We have removed Salazar catheter, and she eats being by herself. 4. Acute on chronic back pain. Patient has been advised strongly about avoiding pain medications that are supposed to be given as needed, but she ended up taking it in daytime every 4 hours. 5. Depressive disorder. We will continue with Cymbalta. 6. Chronic constipation that is secondary to chronic opiate use. We will continue with docusate. 7. Disposition: I think this patient is getting better, so she continues to improve clinically and labs are okay. Will be discharged tomorrow. cc: Curtis Romano MD
[2019-06-06] MEDS: COLACE PO SCH (21:09)
[2019-06-06] MEDS: REMERON PO SCH (21:09)
[2019-06-07] MEDS: DUONEB (A & A) INH SCH ×3 (03:04→11:26)
[2019-06-07] MEDS: LEVAQUIN 500 MG/D5W 500 MG/100 ML IVPB IV SCH (03:50)
[2019-06-07] MEDS: NS 1,000 ML IV SCH (03:50)
[2019-06-07] MEDS: NORCO-7.5 PO PRN ×2 (03:51→09:34)
[2019-06-07] MEDS: XANAX PO PRN ×2 (03:52→09:34)
[2019-06-07] MEDS: SOLU-MEDROL IV SCH (03:52)
[2019-06-07 05:21] LABS: HEMATOCRIT 38.9 % (37.0-47.0); HEMOGLOBIN 11.6 g/dL (12.0-16.0); IMM GRAN# 0.02 X1000 (0.0-0.04); IMM GRAN% 0.2 % (0.0-0.5); LYMPH# 0.68 X1000 (1.2-3.4); LYMPH% 7.5 % (20.5-51.1); MCH 26.7 PG (27-31); MCHC 29.8 g/dL (33-37); MCV 89.4 FL (81-99); MONO# 0.38 X1000 (0.11-0.59); MONO% 4.2 % (1.7-9.3); MPV 9.6 FL (7.4-10.4); NEUT# 8.02 X1000 (1.4-6.5); NEUT% 88.1 % (42.2-75.2); PLT 400 X1000 (130-400); RBC 4.35 XMIL (4.2-5.4)
[2019-06-07 05:44] LABS: AGAP 11; ALBUMIN 3.6 g/dL (3.5-5.0); ALKALINE PHOSPHATASE 44 U/L (32-104); BUN 20 mg/dL (8-22); CALCIUM 8.7 mg/dL (8.8-10.2); CHLORIDE 95 mmol/L (98-107); COSMO 278; CREATININE 0.3 mg/dL (0.5-0.9); ESTIMATED GFR > 60; GLUCOSE 166 mg/dL (70-104); GOT 17 U/L (10-30); GPT 20 U/L (10-36); POTASSIUM 4.6 mmol/L (3.5-5.1); SODIUM 136 mmol/L (136-145); TCO2 30 mmol/L (25-35); TOTAL BILIRUBIN < 0.15 mg/dL (0.20-1.00); TOTAL PROTEIN 5.9 g/dL (6.3-8.3)
[2019-06-07] MEDS: MORPHINE IV PRN (06:03)
[2019-06-07] MEDS: ZOFRAN IV PRN (06:03)
[2019-06-07 07:38] VITALS: BP 158/81
[2019-06-07] MEDS: FLONASE NAS SCH ×2 (07:54→08:06)
[2019-06-07] MEDS: CYMBALTA PO SCH ×2 (07:54→08:06)
[2019-06-07] MEDS: FLEXERIL PO SCH ×2 (07:55→08:06)
[2019-06-07] MEDS: NEURONTIN PO SCH ×2 (07:55→08:07)
[2019-06-07] MEDS: BUSPAR PO SCH ×2 (07:55→08:06)
[2019-06-07] MEDS: MOBIC PO SCH ×2 (07:55→08:07)
[2019-06-07] MEDS: CREON PO SCH ×4 (07:55→11:43)
[2019-06-08] MEDS ORDERED: LEVAQUIN PO SCH (09:00)
--- NOTE | 2019-06-08 13:33 | DISCHARGE SUMMARY ---
ADMISSION DATE: 06/03/2019 DISCHARGE DATE: 06/07/2019 ADMISSION DIAGNOSES: 1. Acute hypoxemic respiratory failure on top of chronic obstructive pulmonary disease exacerbation without CO2 retention. 2. Reported acute congestive heart failure, systolic versus diastolic. 3. Acute on chronic back pain. 4. Complaints of urinary retention. 5. Pancreatic insufficiency. 6. Depression. 7. Chronic constipation. DISCHARGE DIAGNOSES: 1. Acute hypoxemic respiratory failure secondary to chronic obstructive pulmonary disease exacerbation. 2. Diastolic heart failure with pulmonary hypertension on Lasix. 3. Urinary retention, catheter removed. 4. Acute on chronic back pain. 5. Depression. 6. Chronic constipation secondary to chronic opioid use. 7. Resuscitation status Do Not Resuscitate level 1. CONSULTATIONS: None. SURGERIES/PROCEDURES: None. HOSPITAL COURSE: Ms. Yolanda Mcnulty is a 63-year-old female presented emergently to [facility] with complaints of shortness of breath, difficulty urinating and low back pain. She is on 2 L of home oxygen for COPD at home. She has anorexia, chronic back pain and chronic opioid use. They initially treated her with Lasix for acute diastolic on chronic heart failure with pulmonary hypertension. This improved. She also was treated for COPD exacerbation with antibiotics. She had some anxiety during her stay with some Xanax, pain medications for the acute on chronic pain. She slowly improved over time the urinary retention. She had a catheter in; that was weaned off as well, and she is tolerating being able to void on her own. DISCHARGE VITAL SIGNS: Temperature 98.0 degrees, heart rate 95, respiratory rate 18, blood pressure 158/81, O2 saturation 97% on 2 L nasal cannula. DISCHARGE LAB DATA: White blood cells 9000, hemoglobin 11, hematocrit 38, platelet count 400. Sodium 136, potassium 4.6, BUN 20, creatinine 0.3, glucose 166, calcium 8.7, bilirubin is less than 0.15. AST 17, ALT 20, albumin 3.6. MICROBIOLOGY: No growth in the blood cultures. PERTINENT IMAGING: Chest x-ray on the : Decreased expansion of the lungs. No acute findings. Chest x-ray on the : Apparent COPD changes with hyperexpanded lungs. EKG: Sinus tachycardia, rate 103. DISCHARGE MEDICATIONS: 1. Remeron 15 mg p.o. nightly. 2. BuSpar 15 mg p.o. twice daily. 3. Creon 72,000 units p.o. with meals. 4. Cymbalta 60 mg p.o. daily. 5. Flexeril 10 mg p.o. t.i.d. 6. Flonase. 7. Fosamax 70 mg p.o. once a week on Sundays. 8. Neurontin 400 mg p.o. twice daily. 9. [place] 7.5 four times a day p.r.n. 10. Mobic 15 mg p.o. daily. 11. Colace 200 mg p.o. nightly. 12. Levaquin 500 mg p.o. daily for 7 days. 13. Medrol Dosepak. DISCHARGE DIET: Heart healthy. DISCHARGE ACTIVITY: As tolerated. DISCHARGE PHYSICIAN: Follows with Dr. Benedict. DISCHARGE INSTRUCTIONS: If her condition changes, contact physician and/or return to the emergency department. Changes may include, but not limited to shortness of breath, increased fatigue, excessive bleeding, unexplained weight loss or gain, unmanageable pain, signs or symptoms of infection. DISCHARGE DISPOSITION: Home with home health. Dictated by NASREEN Huber for Curtis Romano MD Addendum: Patient seen and examined by myself. Agree with NASREEN note. It reflects my assessment and plan. Patient is being discharged in stable condition. Will be seen by PCP in a week. cc: NASREEN Huber MD [facility]
[2019-06-09] MEDS ORDERED: FOSAMAX PO SCH (09:00)
== END 2019-06-07 12:32 | disposition home health service (06) | DRG 190 ==
LOC: P.ED 04:09 → P.MEDSURG 06:39 → SUATTDRO 06:39 → P.MEDSURG 06-05 12:48
PROVIDERS: ATTEND Internal Medicine

== ENCOUNTER 2019-07-03 22:50 | Observation (INO) ==
[~2019-07-03 22:50] MED LIST changes: -LEVAQUIN 500 MG/D5W 500 MG/100 ML IVPB IV ONE; -MORPHINE IV ONE; -NS 1,000 ML IV ONE; -VANCOMYCIN 750 MG in NS 150 ML IV ONE; -ZOFRAN IV ONE
[2019-07-03 22:56] LABS: BE -1.4 mmoll (-3.0-3.0); BLOOD TYPE ARTERIAL; HCO3-(ACT) 23.5 mmoll (20.0-26.0); METHB 1.7 % (0.0-1.5); O2(CT) 15.1 mL/dL (15.0-23.0); PCO2(98.6) 36 mmHg (35-45); PO2(98.6) 58 mmHg (60-100); SAMPLE BLOOD; SAO2 87.9 % (95.0-100.0); pH(98.6) 7.41 (7.35-7.45)
[2019-07-03 22:58] LABS: ALLEN TEST YES; MODALITY ROOM AIR; O2HB 82.8 % (95.0-99.0)
[2019-07-03 23:16] LABS: BASO# 0.06 X1000 (0.0-0.2); BASO% 0.6 % (0.0-0.8); EOS# 0.14 X1000 (0.0-0.7); EOS% 1.3 % (0.0-10.0); HEMATOCRIT 40.1 % (37.0-47.0); HEMOGLOBIN 12.7 g/dL (12.0-16.0); IMM GRAN# 0.08 X1000 (0.0-0.04); IMM GRAN% 0.7 % (0.0-0.5); LYMPH% 21.3 % (20.5-51.1); MCH 29.2 PG (27-31); MCHC 31.7 g/dL (33-37); MCV 92.2 FL (81-99); MONO# 0.85 X1000 (0.11-0.59); MONO% 7.9 % (1.7-9.3); MPV 8.8 FL (7.4-10.4); NEUT# 7.39 X1000 (1.4-6.5); NEUT% 68.2 % (42.2-75.2); PLT 429 X1000 (130-400); RBC 4.35 XMIL (4.2-5.4); RDW 23.3 % (11.5-14.5); WBC 10.82 X1000 (4.8-10.8)
--- NOTE | 2019-07-03 23:19 | EKG Report ---
Test Performed on : 07/03/2019 10:44:18 PM Test Reason : sob Blood Pressure : / mmHG Vent. Rate : 117 BPM Atrial Rate : 117 BPM P-R Int : 124 ms QRS Dur : 070 ms QT Int : 322 ms P-R-T Axes : 074 083 251 degrees QTc Int : 449 ms Sinus tachycardia. Biatrial enlargement ST & T wave abnormality, consider inferior ischemia ST & T wave abnormality, consider anterolateral ischemia Abnormal ECG No previous ECGs available Unconfirmed Result
[2019-07-03] MEDS ORDERED: NORCO-5 PO ONE (23:45)
[2019-07-03] MEDS ORDERED: ROCEPHIN 1 GM in NS 50 ML IV ONE (23:45)
[2019-07-03 23:58] LABS: AGAP 20; ALBUMIN 4.1 g/dL (3.5-5.0); ALKALINE PHOSPHATASE 72 U/L (32-104); BUN 6 mg/dL (8-22); CALCIUM 8.8 mg/dL (8.8-10.2); CHLORIDE 99 mmol/L (98-107); COSMO 275; CREATININE 0.4 mg/dL (0.5-0.9); ESTIMATED GFR > 60; GLUCOSE 195 mg/dL (70-104); GOT 21 U/L (10-30); GPT 13 U/L (10-36); POTASSIUM 4.1 mmol/L (3.5-5.1); SODIUM 136 mmol/L (136-145); TCO2 17 mmol/L (25-35)
[2019-07-04 00:15] LABS: UR AMPHETAMINES QUAL NONE DETECTED (NONE DETECT); UR BARBITUATES QUAL NONE DETECTED (NONE DETECT); UR BENZODIAZEPIN QUAL NONE DETECTED (NONE DETECT); UR CANNABINOIDS QUAL NONE DETECTED (NONE DETECT); UR COCAINE QUAL NONE DETECTED (NONE DETECT); UR METHADONE QUAL NONE DETECTED (NONE DETECT); UR METHAMPHETAMINE QUAL NONE DETECTED (NONE DETECT); UR OPIATES QUAL NONE DETECTED (NONE DETECT); UR OXYCODONE QUAL NONE DETECTED (NONE DETECT); UR PCP QUAL NONE DETECTED (NONE DETECT); UR PROPOXYPHENE QUAL NONE DETECTED (NONE DETECT); UR TCA QUAL PRESUMPTIVE POSITIVE (NONE DETECT)
--- NOTE | 2019-07-04 01:10 | PROVIDER DOCUMENTATION ---
This chart was entered by Tamara Barnett Scribe, acting as scribe for Federico Hayward MD. HPI-Respiratory General - General Stated Complaint: sob Time Seen by Provider: 07/03/19 22:48 Source: EMS Unable to obtain history due to:: altered Allergies/Adverse Reactions: Patient Allergies Allergy/AdvReac Type Severity Reaction Status Date / Time amoxicillin trihydrate * Allergy Intermediate RASH Verified 06/23/19 09:40 [From Augmentin] potassium clavulanate * Allergy Intermediate RASH Verified 06/23/19 09:40 [From Augmentin] nitrofurantoin Allergy ITCHING Verified 06/23/19 09:40 [From Macrobid] nitrofurantoin Allergy ITCHING Verified 06/23/19 09:40 macrocrystalline * [From Macrobid] Home Medications: Home Medication List Medication Instructions Recorded Confirmed Last Taken Type Alendronate [Fosamax] 70 mg PO Q7D 09/17/18 07/03/19 03/31/19 09:00 History Fluticasone 50 Mcg Nasal [place] 1 spray INTRANASAL DAILY 09/17/18 07/03/19 04/10/19 09:00 History [Flonase] Lipase/Protease/Amylase [Creon] 72,000 units PO AC 09/17/18 07/03/19 04/10/19 20:00 History Docusate Sodium [Colace] 200 mg PO QHS cap 10/31/18 07/03/19 Unknown Rx Mirtazapine [Remeron] 15 mg PO QHS 04/11/19 07/03/19 Unknown History Buspirone HCl 15 mg PO BID 06/03/19 07/03/19 Unknown History Cyclobenzaprine [Flexeril] 10 mg PO TID@0900,1500,2100 06/03/19 07/03/19 Unknown History Duloxetine HCl 60 mg PO DAILY 06/03/19 07/03/19 Unknown History Gabapentin 400 mg PO BID 06/03/19 07/03/19 Unknown History Methylprednisolone [Medrol Dosepak] 4 mg PO DIRECTED #1 pkg 06/07/19 07/03/19 Unknown Rx - History of Present Illness-Resp Nature of Presenting Problem: Pt is a 63 yoWf with history of diabetes and severe COPD requiring home oxygen who presents by EMS with worsening sob and altered mental status. Pt bloodsugar was >200 . No fever reported. Severity in ED: reports: moderate Onset/Duration: reports: unsure Timing: reports: still present Exposure: reports: unknown cause Current Respiratory Medication Therapy: Initiated see nurses note Modifying Factors: improves with: oxygen Associated Symptoms: reports: cough, heart racing, shortness of breath Similar Symptoms Previously?: Yes Recently seen or treated by another doctor?: No Review of Systems - Adult - REVIEW OF SYSTEMS - ADULT Constitutional: reports: see HPI Eyes: reports: no symptoms reported Ears, Nose, Mouth & Throat: reports: no symptoms reported Cardiovascular: reports: no symptoms reported Respiratory: reports: see HPI, shortness of breath Gastrointestinal: reports: no symptoms reported Genitourinary: reports: no symptoms reported Musculoskeletal: reports: no symptoms reported Integumentary: reports: no symptoms reported Neurological: reports: no symptoms reported Psychiatric: reports: no symptoms reported Endocrine: reports: no symptoms reported Hematologic/Lymphatic: reports: no symptoms reported Allergic/Immunologic: reports: no symptoms reported All Other Systems: Reviewed and Negative Past History - Adult - PAST MEDICAL HISTORY-ADULT Review of Records: reports: Old Records Reviewed Major Childhood Illnesses: reports: denies history Cardiovascular: reports: cardiac disease, CHF Respiratory: reports: COPD, pneumonia Gastrointestinal: reports: denies history Obstetrical/Gynecological: reports: denies history Genitourinary: reports: chronic UTI's Musculoskeletal: reports: chronic pain (opioid depenedent), neck/back injury Neurological: reports: denies history Psychiatric: reports: anxiety Endocrine/Immune: reports: denies history Other Conditions: reports: denies history - PRIOR SURGERIES/PROCEDURES Surgical/Procedure History: reports: reviewed, not pertinent - IMMUNIZATION STATUS Childhood Immunizations: UTD Flu Vaccine: UTD - FAMILY HISTORY Family History: reviewed, not pertinent - SOCIAL HISTORY Smoking: cigarettes Provider spent 3-5 mins advising pt. on dangers of tobacco.: Discussed manners to quit use, and f/u contacts for add'l counseling. Substance Use: denies Living Situation: family Physical Exam-General - PHYSICAL EXAM-ADULT Initial Vital Signs Reviewed: Yes - CONSTITUTIONAL General Appearance: alert, no apparent distress, cachetic, thin - EYES Eyes: PERRL/EOMI, pink conjunctivae - HEAD, EARS, NOSE, MOUTH & THROAT HENMT: normocephalic/atraumatic, moist mucous membranes - NECK Neck: non-tender, full range of motion, normal inspection - RESPIRATORY Respiratory: chest non-tender, decreased breath sounds, wheezing - CARDIOVASCULAR Cardiovascular: normal peripheral pulses, tachycardia - GASTROINTESTINAL (ABDOMEN) Abdominal Exam: normal bowel sounds, non tender, soft. negative: guarding, tenderness - LYMPHATIC Lymphatic: no adenopathy - MUSCULOSKELETAL Back Exam: no CVA tenderness, no vertebral tenderness Extremity: normal range of motion, non-tender, normal inspection, other (muscle atrophy) - SKIN Integumentary: normal color, normal turgor, warm/dry - NEUROLOGIC Neurologic: grossly normal - PSYCHIATRIC Psych/Mental Status: normal mood/affect, normal thought content, normal thought process, oriented x 3 Progress - PLAN OF CARE/RESULTS Progress/Plan/Lab Results: Vital Signs - 8 hr 07/03/19 22:40 07/03/19 23:08 07/03/19 23:16 Temperature 97.8 F Pulse Rate 117 H 114 H 117 H Respiratory Rate 24 24 16 Blood Pressure 117/73 133/83 O2 Sat by Pulse Oximetry 89 L 95 95 Laboratory Results - last 24 hr 07/03/19 07/03/19 07/03/19 22:35 22:43 22:44 WBC 10.82 H RBC 4.35 Hgb 12.7 Hct 40.1 MCV 92.2 MCH 29.2 MCHC 31.7 L RDW Std Deviation 23.3 H Plt Count 429 H MPV 8.8 Immature Gran % (Auto) 0.7 H Neut % (Auto) 68.2 Lymph % (Auto) 21.3 [place] % (Auto) 7.9 Eos % (Auto) 1.3 Baso % (Auto) 0.6 Immature Gran # (Auto) 0.08 H Neut # (Auto) 7.39 H Lymph # (Auto) 2.30 [place] # (Auto) 0.85 H Eos # (Auto) 0.14 Baso # (Auto) 0.06 D-Dimer, Quantitative 0.50 Specimen Type ARTERIAL Sample Site R BRACHIAL pH 7.41 pCO2 36 pO2 58 L HCO3 23.5 Base Excess -1.4 Oxyhemoglobin 82.8 L* ABG O2 Sat (Calculated) 15.1 ABG O2 Saturation 87.9 L ABG Carboxyhemoglobin 4.10 H ABG Methemoglobin 1.7 H Abel Test YES A-a O2 Difference 47.0 Total Hemoglobin 13.0 Lactate 1.20 Blood Gas Modality ROOM AIR FiO2 % 21.0 Sodium Potassium Chloride Carbon Dioxide Anion Gap BUN Creatinine Estimated GFR/1.73 m2 BUN/Creatinine Ratio Glucose Calculated Osmolality Calcium Total Bilirubin AST ALT Alkaline Phosphatase Creatine Kinase Troponin T High Sens Gwo-B-Sscdpittqha Pept Total Protein Albumin Globulin Albumin/Globulin Ratio Urine Opiates Screen Ur Oxycodone Screen Urine Methadone Screen U Propoxyphene Qual Ur Barbituates Screen Ur Tricyclics Screen Ur Phencyclidine Scrn Ur Amphetamines Screen U Methamphetamines Scrn U Benzodiazepines Scrn Urine Cocaine Screen U Cannabinoids Screen 07/03/19 07/03/19 07/03/19 22:44 22:44 22:44 WBC RBC Hgb Hct MCV MCH MCHC RDW Std Deviation Plt Count MPV Immature Gran % (Auto) Neut % (Auto) Lymph % (Auto) [place] % (Auto) Eos % (Auto) Baso % (Auto) Immature Gran # (Auto) Neut # (Auto) Lymph # (Auto) [place] # (Auto) Eos # (Auto) Baso # (Auto) D-Dimer, Quantitative Specimen Type Sample Site pH pCO2 pO2 HCO3 Base Excess Oxyhemoglobin ABG O2 Sat (Calculated) ABG O2 Saturation ABG Carboxyhemoglobin ABG Methemoglobin Abel Test A-a O2 Difference Total Hemoglobin Lactate Blood Gas Modality FiO2 % Sodium 136 Potassium 4.1 Chloride 99 Carbon Dioxide 17 L Anion Gap 20 BUN 6 L Creatinine 0.4 L Estimated GFR/1.73 m2 > 60 BUN/Creatinine Ratio 15 Glucose 195 H Calculated Osmolality 275 Calcium 8.8 Total Bilirubin 0.20 AST 21 ALT 13 Alkaline Phosphatase 72 Creatine Kinase Troponin T High Sens 27 H Fcz-P-Voaiqdlbjph Pept 965 H Total Protein 7.0 Albumin 4.1 Globulin 3.0 Albumin/Globulin Ratio 1.0 Urine Opiates Screen Ur Oxycodone Screen Urine Methadone Screen U Propoxyphene Qual Ur Barbituates Screen Ur Tricyclics Screen Ur Phencyclidine Scrn Ur Amphetamines Screen U Methamphetamines Scrn U Benzodiazepines Scrn Urine Cocaine Screen U Cannabinoids Screen 07/03/19 07/03/19 22:45 23:30 WBC RBC Hgb Hct MCV MCH MCHC RDW Std Deviation Plt Count MPV Immature Gran % (Auto) Neut % (Auto) Lymph % (Auto) [place] % (Auto) Eos % (Auto) Baso % (Auto) Immature Gran # (Auto) Neut # (Auto) Lymph # (Auto) [place] # (Auto) Eos # (Auto) Baso # (Auto) D-Dimer, Quantitative Specimen Type Sample Site pH pCO2 pO2 HCO3 Base Excess Oxyhemoglobin ABG O2 Sat (Calculated) ABG O2 Saturation ABG Carboxyhemoglobin ABG Methemoglobin Abel Test A-a O2 Difference Total Hemoglobin Lactate Blood Gas Modality FiO2 % Sodium Potassium Chloride Carbon Dioxide Anion Gap BUN Creatinine Estimated GFR/1.73 m2 BUN/Creatinine Ratio Glucose Calculated Osmolality Calcium Total Bilirubin AST ALT Alkaline Phosphatase Creatine Kinase 40 Troponin T High Sens Jni-L-Wwwjloimdxz Pept Total Protein Albumin Globulin Albumin/Globulin Ratio Urine Opiates Screen NONE DETECTED Ur Oxycodone Screen NONE DETECTED Urine Methadone Screen NONE DETECTED U Propoxyphene Qual NONE DETECTED Ur Barbituates Screen NONE DETECTED Ur Tricyclics Screen PRESUMPTIVE POSITIVE A Ur Phencyclidine Scrn NONE DETECTED Ur Amphetamines Screen NONE DETECTED U Methamphetamines Scrn NONE DETECTED U Benzodiazepines Scrn NONE DETECTED Urine Cocaine Screen NONE DETECTED U Cannabinoids Screen NONE DETECTED Orders Category Date Time Status Admit - [facility] Routine AdmDCTranf 07/04/19 00:54 Active Cardiac Monitoring DIRECTED Care 07/03/19 22:41 Active Core Temperature ORDERED Care 07/03/19 22:45 Active Resuscitation Status Routine Care 07/04/19 00:54 Ordered Vital Signs Order Q 4-HR ASSESS Care 07/04/19 00:54 Active Z-Document. for Tele Applied ORDERED Care 07/04/19 00:55 Active Diabetic Diet Diet 07/04/19 00:55 Active CHEST-PORTABLE [RAD] Stat Exams 07/03/19 22:42 Taken ABG [RESP] Routine Lab 07/03/19 22:35 Completed BLOOD CULTURE [BLDCUL] Stat Lab 07/03/19 22:54 Ordered BNP [PRO B-NATRIURETIC PEPTIDE] Stat Lab 07/03/19 22:44 Completed CBC WITH ELECTRONIC DIFF [HEME] Stat Lab 07/03/19 22:43 Completed CK PROFILE [SP CHEM] Stat Lab 07/03/19 22:45 Completed CMP [COMPREHENSIVE METABOLIC PANEL] [CHEM] Stat Lab 07/03/19 22:44 Completed D-DIMER [COAG] Stat Lab 07/03/19 22:44 Completed TROPONIN T HIGH SENSITIVITY Stat Lab 07/03/19 22:44 Completed URINE DRUG SCREEN PL Stat Lab 07/03/19 23:30 Completed Albuterol 2.5MG/Ipratrop 0.5MG [Duoneb (A & A)] Med 07/03/19 22:44 Discontinued 3 ml INH NOW ONE Albuterol 2.5MG/Ipratrop 0.5MG [Duoneb (A & A)] Med 07/04/19 03:30 Ordered 3 ml INH RTQ4H CefTRIAXONE [Rocephin] 1 gm Med 07/03/19 23:45 Discontinued 0.9% Sodium Chloride Inj [Ns] 50 ml IV NOW Hydrocodone/APAP 5 mg/325 mg [[place]-5] Med 07/03/19 23:45 Discontinued 1 each PO NOW ONE Methylprednisolone Sod Succ [Solu-Medrol] Med 07/03/19 22:42 Discontinued 125 mg IV NOW ONE Methylprednisolone Sod Succ [Solu-Medrol] Med 07/04/19 05:00 Ordered 60 mg IV Q8HR Aerosol Treatments Routine Oth 07/03/19 22:44 Active Aerosol Treatments Routine Oth 07/04/19 00:55 Active Aerosol Treatments Stat Oth 07/03/19 22:44 Active Aerosol Treatments Stat Oth 07/04/19 00:55 Active Oxygen Device Stat Oth 07/03/19 22:42 Active Telemetry [OM.EQ] Routine Oth 07/04/19 00:54 Active EKG [EKG] Stat Ther 07/03/19 23:04 Draft Transfer/Admit Order [TRANSFER] Routine Transfer 07/04/19 00:56 Ordered Result Diagrams: 07/03/19 22:43 07/03/19 22:44 - REASSESSMENT Reassessment #1 Time Reassessed: 00:30 Status: unchanged Reassessment Comment: continues to have sob - EKG 1 Time of EKG reading by physician:: 22:44 EKG Read and Signed by:: Federico Hayward EKG Interpretation (*Must complete 3 of following elements*): Abnormal (rate 117 sinus tachy biatrial enlargement NSSTW changes) Rate: 117 Rhythm: sinus tachy [place]: normal QRS: normal [place] Interval: normal ST Wave: normal Comments: no STEMI - XRAY 1 XRAY Study: Chest XRAY Interpretation: severe emphysematous changes - CONSULTS/PCP/HOSPITALIST Notification #1 *Consult/PCP/Hospitalist*: Dr. Carcamo, hospitalist Time Discussed: 00:45 Consult Disposition: Admit Departure - Departure Date of Disposition Decision: 07/04/19 Time of Disposition Decision: 01:09 DIAGNOSIS: COPD with exacerbation, Hypoxemia Disposition: ADMITTED INPATIENT 09 Certified Medical Emergency: Emergent Condition: Stable Referrals and Follow-Ups: None,PCP [Primary Care Provider] - - Critical Care Note This patient required my direct & personal management of CC.: No Attestation - Physician/ FRANKIE Attestation Patient care was provided by Advanced Practice Provider:: No The physician spent face to face time with patient:: Yes Advanced Practice Provider documentation review:: Supervising physician onsite and consulted in the evaluation and care of this patient. The physician did have a face to face encounter with the patient. This chart was documented by the indicated scribe, (Tamara Barnett Scribe) and accurately reflects the services I performed and decisions made by me, Federico Hayward MD, as attested by the provider's signature.
[2019-07-04 03:12] LABS: URINE SOURCE CLEAN CATCH
[2019-07-04 03:18] LABS: BILIRUBIN URINE MODERATE (NEGATIVE); BLOOD URINE NEGATIVE (NEGATIVE); COLOR BROWN; GLUCOSE URINE NEGATIVE (NEGATIVE); KETONE URINE NEGATIVE (NEGATIVE); LEUKOCYTES URINE NEGATIVE (NEGATIVE); NITRITE URINE POSITIVE (NEGATIVE); PROTEIN URINE TRACE mg/dL (NEGATIVE); SP GRAVITY URINE 1.018; TURBIDITY URINE CLEAR (CLEAR); UROBILINOGEN URINE 6 mg/dL (NORMAL)
[2019-07-04 03:42] LABS: UR EPITHELIAL CELLS <10 /HPF (<10); URINE BACTERIA 2+ /HPF; URINE CASTS GRANULAR PRESENT; URINE YEAST NONE SEEN
[2019-07-04 03:43] LABS: URINE CRYSTALS NONE SEEN; URINE SMALL ROUND CELLS NONE SEEN
[2019-07-04] MEDS: DUONEB (A & A) INH SCH ×6 (04:47→22:40)
[2019-07-04] MEDS: SOLU-MEDROL IV SCH ×3 (05:33→22:55)
--- NOTE | 2019-07-04 06:13 | Diag Imaging Result Doc PS360 ---
EXAM: CHEST-PORTABLE HISTORY: sob TECHNIQUE: Single view COMPARISON: 06/06/2019 FINDINGS: The lungs are hyperexpanded. The heart is not enlarged. The vessels are small. There are no infiltrates. No effusion identified. There are scattered granuloma. IMPRESSION: Emphysema Electronically signed by Layo Lugo 07/04/2019 6:10 AM
[2019-07-04] MEDS: HUMULIN R (PARKWAY) SUBQ SCH ×2 (07:36→18:14)
[2019-07-04] MEDS ORDERED: NS 1,000 ML IV ONE (09:36)
[2019-07-04] MEDS ORDERED: SALINE LOCK IV FLUID XX ONE (09:36)
[2019-07-04] MEDS ORDERED: TYLENOL PO PRN (09:36)
[2019-07-04] MEDS ORDERED: NS 500 ML IV ONE (10:15)
[2019-07-04] MEDS: NORCO-5 PO PRN ×3 (10:48→22:30)
[2019-07-04] MEDS: NEURONTIN PO SCH ×2 (10:49→20:30)
[2019-07-04] MEDS: CYMBALTA PO SCH (10:49)
[2019-07-04] MEDS: FLEXERIL PO SCH ×3 (10:49→20:33)
[2019-07-04] MEDS: BUSPAR PO SCH ×2 (10:50→20:31)
[2019-07-04] MEDS ORDERED: BLISTEX MEDICATED BERRY LIP BALM TOP PRN (11:14)
[2019-07-04] MEDS: CREON PO SCH ×2 (11:25→16:50)
[2019-07-04 11:36] LABS: INR 0.82; PROTIME 11.7 Seconds (11.0-16.0); PTT 27.8 Seconds (22.3-41.8)
[2019-07-04] MEDS ORDERED: DILAUDID IV PRN (12:23)
[2019-07-04] MEDS: XANAX PO PRN ×2 (14:46→20:31)
--- NOTE | 2019-07-04 18:43 | HISTORY AND PHYSICAL ---
PRIMARY CARE PROVIDER: Yoandy Benedict. CHIEF COMPLAINT: Shortness of breath. HISTORY OF PRESENT ILLNESS: Ms. Yolanda Mcnulty is a 63-year-old, female, with a medical history of pancreatic insufficiency, that she is supposed to be on Creon for, but just got insurance to start taking it again this month. She has been out of it for 6 months, which she states is the reason she has lost so much weight. She is currently anorexic with a weight of 69 pounds. She has a history of interstitial cystitis and frequent urinary tract infections, COPD on continuous 2 L of home oxygen, chronic opioid use secondary to chronic back pain. She states that for the last 2 to 3 days, she has had extreme shortness of breath that just became so significant she felt she was being suffocated. Her phlegm was only clear in color. She would have hot and cold flashes. She would feel like she was starting to have bladder pressure with urinary frequency and urgency. Denied any changes in the smell of the urine. She has leukocytosis, so we will go ahead and start giving her some IV fluids and IV antibiotics, nebulizers and steroids to treat the COPD and hypoxia. PAST MEDICAL HISTORY: 1. Urinary retention with frequent infection. 2. Interstitial cystitis. 3. Ulcerative colitis, which she also feels this is from her anorexia, but she has not had any flares. 4. Pancreatic insufficiency. She has been without Creon for 6 months, but is able to afford it again this month. She also feels like this is part of her reason for the anorexia as she is not absorbing food as she is supposed to. 5. Severe anorexia. She continues to lose even more weight. Now, she is down to 69 pounds. 6. COPD, on 2 L of oxygen. 7. Chronic back pain secondary to scoliosis and multiple back surgeries. 8. Chronic opioid use with chronic constipation. 9. Anxiety and depression, on Cymbalta and on Xanax while she is here. 10. Osteoporosis. SURGICAL HISTORY: 1. Three back surgeries for scoliosis correction. 2. Total arthroplasty of the right hip. SOCIAL HISTORY: Daily smoker for 30+ years. I believe she has gotten down to about 3 cigarettes a day. Denies alcohol or illicit drug use. She uses a walker at home sometimes. She lives with her brother and son. She is on disability. She states she actually has 4 children. I believe she has 3 daughters and 1 son. FAMILY HISTORY: Mother had hypertension. ALLERGIES: Augmentin, Macrobid. Sensitivity to steroids which make her more jittery. HOME MEDICATIONS: 1. She states that she is on oxycodone 7.5 now, which is not listed on her home medication list. 2. Remeron 15 mg p.o. nightly. 3. Buspirone 15 mg p.o. twice daily. 4. Creon 72,000 units p.o. with meals. 5. Cymbalta 60 mg p.o. daily. 6. Flexeril 10 mg p.o. t.i.d. 7. Fluticasone spray nasally. 8. Fosamax 70 mg p.o. every 7 days on Sundays. 9. Neurontin 400 mg p.o. twice daily. 10. Colace 200 mg p.o. nightly. 11. Medrol Dosepak back in May. REVIEW OF SYSTEMS: A 14-point review of systems is complete. All were negative, except for those mentioned above in HPI. PHYSICAL EXAMINATION: VITAL SIGNS: Temperature 97.9 degrees, heart rate 115, respiratory rate 20, blood pressure 121/85, O2 saturation 98% on 3 L nasal cannula. GENERAL: Ms. Yolanda Mcnulty is a 63-year-old, female. She is in no acute distress. She is able to answer questions appropriately. She is very anorexic. HEENT: Her face is sunken in, but is atraumatic, normocephalic. Pupils equal, round, reactive to light. Extraocular movements intact. Mucous membranes are dry. NECK: Trachea midline. CARDIOVASCULAR: S1, S2. Tachycardic rate and rhythm. No rubs, gallops, murmurs. No lower extremity edema. Pedal pulses +2, radial pulses 2+. Negative for JVD or carotid bruits. PULMONARY: Clear to auscultate. Bilateral breath sounds. Some mild expiratory wheezes. Tolerating nasal cannula. GASTROINTESTINAL: Soft, nontender, nondistended. Positive bowel sounds x4. EXTREMITIES: Moves all extremities equally. Full range of motion. NEUROLOGIC: A O x3. Follows commands. Sensory is intact. SKIN: Warm, dry, intact. LABORATORY DATA: White blood cells 10,000, hemoglobin 12, hematocrit 40, platelet count 429,000. INR 0.82, PTT is 27.8. ABG: PH 7.41, pCO2 of 36, PO2 of 58, bicarbonate 23, base excess is -1.4, saturation was 82%, lactate was 1.2, that was on room air. Sodium 136, potassium 4.1, BUN 6, creatinine 0.4, glucose 195, calcium 8.8. Bilirubin 0.20, AST 21, ALT 13. CK 40, troponin 19. ProBNP 965. Albumin 4.1. Lactate was 4.5, is down to 2.8. Urinalysis: Trace protein, positive nitrites, moderate bilirubin, 6 urobilinogen, 10 to 20 white blood cells, 10 to 20 red blood cells, 2+ bacteria. Tricyclics positive in the urine. IMAGING: Chest x-ray: Emphysema. ASSESSMENT AND PLAN: 1. Chronic obstructive pulmonary disease exacerbation with acute on chronic hypoxemic respiratory failure. Supposed to be on 2 L of oxygen at home. We reapplied that. Started her on Rocephin, nebulizers, steroids. 2. Elevated lactate, possible urinary tract infection. Intravenous fluids given. Cultures obtained and antibiotic started. 3. Probable urinary tract infection. She does have a history of interstitial cystitis and frequent urinary tract infections with retention. Again, she is getting IV fluid hydration, IV antibiotics. 4. Pancreatic insufficiency. She has been without Creon for 6 months. She is able to resume it this month as she can afford it this month. 5. Severe anorexia, which she feels is related to ulcerative colitis, her pancreatic insufficiency, and her back pain. She has no appetite with it, and she states that because she had not had her Creon in last 6 months, she has not digested food well. 6. Chronic back pain with acute exacerbation. She claims she has been started on oxycodone at home. This is not on her medication list. We have gotten low-dose [place] and a very low-dose Dilaudid for her pain control. 7. Anxiety, depression. Continue Cymbalta and p.r.n. Xanax. 8. Deep venous thrombosis prophylaxis. Sequential compression devices. Dictated by NASREEN Huber for Rodríguez Verde MD cc: NASREEN Huber MD
[2019-07-04] MEDS: MYCOSTATIN SUSP PO SCH (20:30)
[2019-07-04] MEDS: COLACE PO SCH (20:30)
[2019-07-04] MEDS: ZOFRAN IV PRN (20:31)
[2019-07-04] MEDS: REMERON PO SCH (20:31)
--- NOTE | 2019-07-04 22:23 | HISTORY AND PHYSICAL ---
ADDENDUM: Patient presented to the hospital with increased work of breathing and shortness of breath. She does possibly appear slightly worse than her baseline but not significantly worse. Her plasma lactate was elevated at 4.5. We are going to place her on antibiotics, breathing treatments, oxygen. She apparently was started on Dilaudid from the ER. We certainly are not going to continue this given her propensity to abuse opiates as well as her significant COPD, both of which would make this treacherous to continue. We are going to continue Rocephin, steroids and will follow. cc: Rodríguez Verde MD
[2019-07-04] MEDS: ROCEPHIN 1 GM in NS 50 ML IV SCH (23:16)
[2019-07-05] MEDS: DUONEB (A & A) INH SCH ×5 (03:48→19:40)
[2019-07-05] MEDS: SOLU-MEDROL IV SCH ×3 (06:40→21:15)
[2019-07-05] MEDS: CREON PO SCH ×3 (06:41→16:55)
[2019-07-05 07:04] LABS: HEMATOCRIT 35.5 % (37.0-47.0); HEMOGLOBIN 10.6 g/dL (12.0-16.0); IMM GRAN# 0.08 X1000 (0.0-0.04); IMM GRAN% 0.4 % (0.0-0.5); LYMPH# 0.96 X1000 (1.2-3.4); LYMPH% 4.3 % (20.5-51.1); MCH 28.4 PG (27-31); MCHC 29.9 g/dL (33-37); MCV 95.2 FL (81-99); MONO% 5.4 % (1.7-9.3); MPV 9.1 FL (7.4-10.4); NEUT# 20.05 X1000 (1.4-6.5); NEUT% 89.9 % (42.2-75.2); PLT 435 X1000 (130-400); RBC 3.73 XMIL (4.2-5.4); RDW 23.2 % (11.5-14.5); WBC 22.29 X1000 (4.8-10.8)
[2019-07-05 07:28] LABS: AGAP 13; ALBUMIN 3.8 g/dL (3.5-5.0); ALKALINE PHOSPHATASE 64 U/L (32-104); BUN 14 mg/dL (8-22); CHLORIDE 101 mmol/L (98-107); COSMO 281; CREATININE 0.3 mg/dL (0.5-0.9); ESTIMATED GFR > 60; GLUCOSE 157 mg/dL (70-104); GOT 17 U/L (10-30); GPT 14 U/L (10-36); POTASSIUM 4.4 mmol/L (3.5-5.1); SODIUM 139 mmol/L (136-145); TCO2 25 mmol/L (25-35); TOTAL BILIRUBIN < 0.15 mg/dL (0.20-1.00); TOTAL PROTEIN 6.3 g/dL (6.3-8.3)
[2019-07-05 09:02] LABS: ANISOCYTOSIS 2+; LYMPHS 6 % (21-51); MONO 7 % (1-9); SEGS 87 % (42-75)
[2019-07-05] MEDS: MYCOSTATIN SUSP PO SCH ×4 (10:08→21:55)
[2019-07-05] MEDS: CYMBALTA PO SCH (10:08)
[2019-07-05] MEDS: BUSPAR PO SCH ×2 (10:08→20:07)
[2019-07-05] MEDS: FLONASE NAS SCH (10:09)
[2019-07-05] MEDS: ZOFRAN IV PRN (10:09)
[2019-07-05] MEDS: NEURONTIN PO SCH ×2 (10:09→20:08)
[2019-07-05] MEDS: FLEXERIL PO SCH ×3 (10:09→20:08)
[2019-07-05] MEDS: NORCO-5 PO PRN ×3 (11:29→20:08)
[2019-07-05] MEDS: XANAX PO PRN ×2 (11:58→17:42)
[2019-07-05] MEDS: COLACE PO SCH (20:07)
[2019-07-05] MEDS: REMERON PO SCH (20:08)
--- NOTE | 2019-07-05 21:14 | PROGRESS NOTE ---
DATE: 07/05/2019 SUBJECTIVE: Patient complains of bladder spasms, back pain, shortness of breath, increased work of breathing. Denies any chest pains, palpitations. OBJECTIVE: Vital Signs: Temperature 98.1 degrees, pulse 115, respiratory rate 18, BP 135/67. General: Patient is awake. She is pleasant. She is in no new current distress, other than her chronic mild distress which is unchanging. HEENT: Normocephalic. Neck: Supple. CV: Tachycardia. No murmurs. Chest: Greatly decreased breath sounds, but equal bilaterally. Minimal wheezing. No crackles. Abdomen: Soft, nondistended. Extremities: Moves all extremities. Neurologic: No changes. ASSESSMENT: 1. Bladder spasms. We will not start her on Urogesic Blue. She has a history in September of last year of overdosing on Urogesic Blue. 2. Chronic obstructive pulmonary disease with exacerbation. 3. Chronic hypoxic respiratory failure. 4. Generalized weakness with protein calorie malnutrition. 5. Pancreatic insufficiency. 6. Severe anorexia. 7. History of ulcerative colitis and chronic pancreatic insufficiency. PLAN: We are going to continue patient in the hospital. It does appear as though she may have a UTI. Her lactate has improved from 4.5 down to 2.8. White count increased from 10 to 22, but this appears to be more of steroid effect. We are going to continue Rocephin, Solu-Medrol, and will follow. cc: Rodríguez Verde MD
[2019-07-06] MEDS: ROCEPHIN 1 GM in NS 50 ML IV SCH ×2 (00:06→23:49)
[2019-07-06] MEDS: NORCO-5 PO PRN ×5 (00:07→22:38)
[2019-07-06] MEDS: DUONEB (A & A) INH SCH ×7 (00:11→23:23)
[2019-07-06] MEDS: CREON PO SCH ×3 (06:07→16:28)
[2019-07-06] MEDS: SOLU-MEDROL IV SCH ×2 (06:07→18:03)
[2019-07-06 06:23] LABS: HEMATOCRIT 34.2 % (37.0-47.0); IMM GRAN# 0.07 X1000 (0.0-0.04); IMM GRAN% 0.4 % (0.0-0.5); LYMPH# 1.32 X1000 (1.2-3.4); LYMPH% 7.3 % (20.5-51.1); MCH 28.3 PG (27-31); MCHC 29.2 g/dL (33-37); MCV 96.9 FL (81-99); MONO# 1.16 X1000 (0.11-0.59); MONO% 6.4 % (1.7-9.3); MPV 8.8 FL (7.4-10.4); NEUT# 15.54 X1000 (1.4-6.5); NEUT% 85.9 % (42.2-75.2); PLT 363 X1000 (130-400); RBC 3.53 XMIL (4.2-5.4); RDW 23.1 % (11.5-14.5); WBC 18.09 X1000 (4.8-10.8)
[2019-07-06 06:43] LABS: AGAP 9; ALBUMIN 3.3 g/dL (3.5-5.0); ALKALINE PHOSPHATASE 63 U/L (32-104); BUN 14 mg/dL (8-22); CALCIUM 8.7 mg/dL (8.8-10.2); CHLORIDE 95 mmol/L (98-107); COSMO 270; CREATININE 0.3 mg/dL (0.5-0.9); ESTIMATED GFR > 60; GLUCOSE 115 mg/dL (70-104); GOT 57 U/L (10-30); GPT 54 U/L (10-36); POTASSIUM 4.7 mmol/L (3.5-5.1); SODIUM 134 mmol/L (136-145); TCO2 30 mmol/L (25-35); TOTAL BILIRUBIN < 0.15 mg/dL (0.20-1.00); TOTAL PROTEIN 5.5 g/dL (6.3-8.3)
[2019-07-06 06:58] LABS: LYMPHS 4 % (21-51); MONO 4 % (1-9); SEGS 92 % (42-75)
[2019-07-06 06:59] LABS: ANISOCYTOSIS 2+
[2019-07-06 07:00] LABS: HYPOCHROM 2+; MICROCYTOSIS OCCASIONAL; POIKILOCYTOSIS 2+; POLYCHROM OCCASIONAL; TARGET CELLS 1+
[2019-07-06 07:01] LABS: LARGE PLATELETS OCCASIONAL; OVALOCYTES OCCASIONAL; STOMATOCYTES 1+
[2019-07-06] MEDS: FLEXERIL PO SCH ×3 (10:28→20:07)
[2019-07-06] MEDS: MYCOSTATIN SUSP PO SCH ×4 (10:29→20:07)
[2019-07-06] MEDS: BUSPAR PO SCH ×2 (10:29→20:07)
[2019-07-06] MEDS: FLONASE NAS SCH (10:29)
[2019-07-06] MEDS: CYMBALTA PO SCH (10:29)
[2019-07-06] MEDS: NEURONTIN PO SCH ×2 (10:29→20:07)
[2019-07-06] MEDS: ZOFRAN IV PRN (10:46)
[2019-07-06] MEDS: XANAX PO PRN ×3 (12:52→20:07)
--- NOTE | 2019-07-06 14:53 | PROGRESS NOTE ---
DATE: 07/06/2019 SUBJECTIVE: Patient notes she is still having back pain, bladder spasms and bladder pain. Denies any diarrhea, constipation, melena. PHYSICAL: Temperature 97.5 degrees, pulse 96, respiratory 18, BP 149/74.General: Patient is awake, pleasant, she is in no new distress. HEENT: Normocephalic. Neck: Supple. CV: Regular rate. Chest: Decreased breath sounds but equal bilaterally, minimal wheezing, appears to be at her baseline. HEENT: Normocephalic. Neck: Supple. CV: Regular rate. Chest: Decreased but equal no wheezing, no crackles, no rhonchi. Abdomen: Soft, nondistended. Extremities: Moves all extremities. ASSESSMENT: 1. Chronic obstructive pulmonary disease with mild exacerbation with patient with end-stage pulmonary disease. 2. Chronic bladder spasms. 3. Pancreatic insufficiency . 4. Severe anorexia. 5. Chronic back pain . 6. Chronic anxiety, depression. PLAN: Urine culture is negative, we are not going to start any bladder spasm medications given her propensity to overusing and ultimately abuse these. Going to decrease her Solu-Medrol, white count dropped from initial, if continues to improve, can be discharged home tomorrow. cc: MD BONNIE Hancock
[2019-07-06] MEDS: REMERON PO SCH (20:07)
[2019-07-06] MEDS: COLACE PO SCH (20:07)
[2019-07-07] MEDS: DUONEB (A & A) INH SCH ×6 (03:30→23:35)
[2019-07-07 05:48] LABS: HEMATOCRIT 37.9 % (37.0-47.0); HEMOGLOBIN 11.1 g/dL (12.0-16.0); IMM GRAN# 0.09 X1000 (0.0-0.04); IMM GRAN% 0.8 % (0.0-0.5); LYMPH# 1.71 X1000 (1.2-3.4); LYMPH% 15.2 % (20.5-51.1); MCHC 29.3 g/dL (33-37); MCV 95.7 FL (81-99); MONO# 0.91 X1000 (0.11-0.59); MONO% 8.1 % (1.7-9.3); MPV 8.9 FL (7.4-10.4); NEUT# 8.51 X1000 (1.4-6.5); NEUT% 75.9 % (42.2-75.2); PLT 381 X1000 (130-400); RBC 3.96 XMIL (4.2-5.4); RDW 23.1 % (11.5-14.5); WBC 11.22 X1000 (4.8-10.8)
[2019-07-07] MEDS ORDERED: FOSAMAX PO SCH (06:00)
[2019-07-07 06:10] LABS: AGAP 12; ALBUMIN 3.6 g/dL (3.5-5.0); ALKALINE PHOSPHATASE 66 U/L (32-104); BUN 19 mg/dL (8-22); CALCIUM 9.2 mg/dL (8.8-10.2); CHLORIDE 92 mmol/L (98-107); COSMO 277; CREATININE 0.3 mg/dL (0.5-0.9); ESTIMATED GFR > 60; GLUCOSE 113 mg/dL (70-104); GOT 48 U/L (10-30); GPT 78 U/L (10-36); POTASSIUM 5.2 mmol/L (3.5-5.1); SODIUM 137 mmol/L (136-145); TCO2 34 mmol/L (25-35); TOTAL BILIRUBIN < 0.15 mg/dL (0.20-1.00); TOTAL PROTEIN 6.1 g/dL (6.3-8.3)
[2019-07-07 06:22] LABS: LYMPHS 24 % (21-51); MONO 4 % (1-9); SEGS 72 % (42-75)
[2019-07-07 06:24] LABS: ANISOCYTOSIS 1+; HYPOCHROM 1+; MICROCYTOSIS OCCASIONAL; POIKILOCYTOSIS 2+
[2019-07-07 06:25] LABS: OVALOCYTES OCCASIONAL; STOMATOCYTES OCCASIONAL; TARGET CELLS 1+
[2019-07-07] MEDS: SOLU-MEDROL IV SCH ×2 (06:46→17:38)
[2019-07-07] MEDS: NORCO-5 PO PRN ×3 (06:46→20:46)
[2019-07-07] MEDS: CREON PO SCH ×3 (06:47→15:55)
[2019-07-07] MEDS: MYCOSTATIN SUSP PO SCH ×4 (08:31→20:46)
[2019-07-07] MEDS: FLEXERIL PO SCH ×3 (08:31→20:45)
[2019-07-07] MEDS: CYMBALTA PO SCH (08:31)
[2019-07-07] MEDS: BUSPAR PO SCH ×2 (08:31→20:46)
[2019-07-07] MEDS: FLONASE NAS SCH (08:31)
[2019-07-07] MEDS: NEURONTIN PO SCH ×2 (08:31→20:46)
[2019-07-07] MEDS: ZOFRAN IV PRN (10:15)
[2019-07-07] MEDS: XANAX PO PRN ×2 (11:46→20:46)
[2019-07-07] MEDS: PROTONIX PO SCH ×2 (13:01→20:46)
--- NOTE | 2019-07-07 13:52 | PROGRESS NOTE ---
DATE: 07/07/2019 SUBJECTIVE: Patient notes that she is really nauseated this morning states started overnight. Denies fevers, chills. Denies hematemesis, hematochezia, denies any vomiting. States she does not feel like eating breakfast currently. PHYSICAL: Temperature 97, pulse 115, respiratory 18, BP 147/78.General: Patient is a cachectic appearing female who is in no respiratory distress. HEENT: Normocephalic. Neck: Supple. CV: Regular rate. Chest: Clear, nonlabored. Abdomen: Soft, nondistended. Extremities: Moves all extremities. ASSESSMENT: 1. Nausea in a patient with known history of recurrent pancreatitis as well as ulcerative colitis . 2. Chronic obstructive pulmonary disease with mild exacerbation actually improved, we are going to wean her steroids. 3. Frequent urinary dysuria secondary to interstitial cystitis. Her current culture is negative. 4. Chronic pancreatic insufficiency which is likely contributing if not causing her nausea. 5. Leukocytosis, white count was 22 currently down to 11. 6. Hyperkalemia. PLAN: We are going continue patient in the hospital, continue fluids, supportive care, add PPI twice daily and will follow. cc: Rodríguez Verde MD
[2019-07-07] MEDS: COLACE PO SCH (20:45)
[2019-07-07] MEDS: REMERON PO SCH (20:45)
[2019-07-07] MEDS: ROCEPHIN 1 GM in NS 50 ML IV SCH (23:40)
[2019-07-08] MEDS: DUONEB (A & A) INH SCH ×6 (02:54→23:58)
[2019-07-08] MEDS: NORCO-5 PO PRN ×4 (03:50→20:19)
[2019-07-08] MEDS: XANAX PO PRN ×4 (04:29→23:48)
[2019-07-08] MEDS: SOLU-MEDROL IV SCH ×2 (06:28→17:30)
[2019-07-08] MEDS: CREON PO SCH ×3 (06:29→17:30)
[2019-07-08] MEDS ORDERED: ZANAFLEX PO PRN (08:21)
[2019-07-08] MEDS: FLONASE NAS SCH (10:13)
[2019-07-08] MEDS: PROTONIX PO SCH ×2 (10:14→20:18)
[2019-07-08] MEDS: NEURONTIN PO SCH ×2 (10:14→20:18)
[2019-07-08] MEDS: FLEXERIL PO SCH ×3 (10:14→20:19)
[2019-07-08] MEDS: CYMBALTA PO SCH (10:14)
[2019-07-08] MEDS: BUSPAR PO SCH ×2 (10:14→20:18)
[2019-07-08] MEDS: MYCOSTATIN SUSP PO SCH ×4 (10:15→20:19)
[2019-07-08] MEDS: ZOFRAN IV PRN (10:47)
--- NOTE | 2019-07-08 19:21 | PROGRESS NOTE ---
DATE: 07/08/2019 SUBJECTIVE: Patient notes that her nausea is improving, she is still having low back pain, still having bladder spasms, still having difficulty breathing, still does not overall feel back to her baseline. PHYSICAL: Temperature 97.8, pulse 101, respiratory 18, BP 140/62.General: Patient is awake, pleasant, she is in mild distress but this is actually her baseline. HEENT: Normocephalic. Neck: Supple. CV: Regular rate. Chest: Decreased but equal, positive wheezing. Abdomen: Soft, scaphoid. Extremities: Moves all extremities, no edema. Neuro: No changes. ASSESSMENT: 1. Nausea . 2. Abdominal pain. 3. Chronic obstructive pulmonary disease with chronic exacerbation. 4. Acute on chronic hypoxic respiratory failure . 5. Pancreatic insufficiency. 6. Severe anorexia. PLAN: We will continue Solu-Medrol, follow her potassium. Her white count actually is improved from 22 down to 11, hopefully she can discharge home tomorrow if she is feeling better. cc: Rodríguez Verde MD
[2019-07-08] MEDS: REMERON PO SCH (20:18)
[2019-07-08] MEDS: COLACE PO SCH (20:18)
[2019-07-08] MEDS: ROCEPHIN 1 GM in NS 50 ML IV SCH (23:48)
[2019-07-09] MEDS: NORCO-5 PO PRN ×3 (00:20→09:54)
[2019-07-09] MEDS: DUONEB (A & A) INH SCH ×2 (03:41→07:13)
[2019-07-09] MEDS: SOLU-MEDROL IV SCH (05:50)
[2019-07-09] MEDS: XANAX PO PRN (05:51)
[2019-07-09] MEDS: CREON PO SCH (06:12)
[2019-07-09] MEDS ORDERED: PROTONIX PO SCH (07:00)
[2019-07-09] MEDS: CYMBALTA PO SCH (09:48)
[2019-07-09] MEDS: BUSPAR PO SCH (09:48)
[2019-07-09] MEDS: FLEXERIL PO SCH (09:48)
[2019-07-09] MEDS: NEURONTIN PO SCH (09:48)
[2019-07-09] MEDS: MYCOSTATIN SUSP PO SCH (09:49)
[2019-07-09] MEDS: ZOFRAN IV PRN (09:49)
[2019-07-09] MEDS: FLONASE NAS SCH (09:49)
[2019-07-09 11:16] VITALS: BP 118/69
--- NOTE | 2019-07-10 05:42 | DISCHARGE SUMMARY ---
ADMISSION DATE: 07/04/2019 DISCHARGE DATE: 07/09/2019 ADMITTING DIAGNOSES: 1. Chronic obstructive pulmonary disease with acute exacerbation. 2. Elevated lactate with possible urinary tract infection. 3. Probable urinary tract infection with history of interstitial cystitis. 4. Pancreatic insufficiency. 5. Severe anorexia with ulcerative colitis. 6. Chronic back pain with acute exacerbation. 7. Situational anxiety and depression. DISCHARGE DIAGNOSES: 1. Nausea. 2. Abdominal pain. 3. Chronic obstructive disease with chronic exacerbation. 4. Acute on chronic hypoxic respiratory failure. 5. Pancreatic insufficiency. 6. Severe anorexia. PROCEDURES AND FINDINGS: 1. Chest x-ray done on 07/04/2019 showed emphysema. 2. Urine culture done on 07/04/2019 showed no growth. 3. Blood cultures done on 07/03/2019 showed no growth. HOSPITAL COURSE: Ms. Mcnulty is a 63-year-old female who presented to the ER and stated that for the last 2 to 3 days she has been extremely short of breath, and felt like she had been suffocating, having hot and cold flashes, and increasing bladder pressure with frequency and urgency, and foul smelling urine. The patient was noted to have positive leukocytosis and hypoxic on her ABGs. Plasma lactate was elevated. Urinalysis did show possible UTI. Patient was started on Rocephin, IV steroids, nebulizer treatments, and supplemental O2. Cultures were obtained. The patient was noted to have pancreatic insufficiency, and had been off her Creon for the past 6 months. She, however, was started back on it some time before admission. The patient was noted to be only 69 pounds, and was severely anorexic. The patient stated this was due to her ulcerative colitis, her pancreatic insufficiency, and chronic back pain. The patient was started on pain medication, and restarted on all of her home medications. Urine culture did come back negative. Antibiotics were stopped. White blood cell count did tend to improve. Hypoxia did improve with O2 and nebulizer treatments. Steroids were weaned down. The patient was noted on 07/07 to have some nausea with abdominal pain. The patient does have a history of ulcerative colitis. This has since improved. The patient does feel like she is back to her baseline at this time. The patient is being discharged home today. The patient will need to continue on her home O2 of 2 L. We will discharge patient home on her Medrol Dosepak. She will need to continue her home nebulizer treatments. She does have [facility] for physician follow up. She will need to follow up with them in 1 to 2 weeks. DISCHARGE MEDICATIONS: 1. Remeron 15 mg p.o. at bedtime. 2. Buspirone HCL 50 mg p.o. b.i.d. 3. Creon 65643 units p.o. before meals. Patient to take 3 capsules with meals 30 minutes before. 4. Duloxetine HCL 60 mg p.o. daily. 5. Flexeril 10 mg p.o. t.i.d. 6. Fluticasone 1 spray into each nostril daily. 7. Fosamax 70 mg p.o. once a week. 8. Gabapentin 400 mg p.o. b.i.d. 9. Oxycodone HCl acetaminophen 1 tablet p.o. q.6 hours p.r.n. 10. Colace 200 mg p.o. at bedtime. 11. Albuterol and Atrovent nebulizer treatments every 4 hours. 12. Medrol Dosepak as directed. DISCHARGE DIET: The patient is to resume diet as tolerated. DISCHARGE ACTIVITY: Patient is to resume activity as tolerated. DISCHARGE DISPOSITION: Patient is to discharge home with self care. She is to follow up with [facility]. She is to follow up with her primary care physician in 1 to 2 weeks. If she does not have a primary care physician, she is to call the followup hotline and schedule appointment with a physician of her choice. For all other questions and concerns, she is to notify her primary care physician. Dictated by NASREEN Adam for Rodríguez Verde MD cc: Rodríguez Verde MD Primary Care Physician
== END 2019-07-09 11:30 | disposition home health service (06) ==
LOC: P.ED 22:50 → P.EDIPHOLD 22:50 → SUATTDRO 07-04 06:27 → P.MEDSURG 07-04 08:39
PROVIDERS: ATTEND Family Medicine

== ENCOUNTER 2019-09-06 23:30 | Inpatient (IN) ==
[2019-09-06] MEDS ORDERED: DUONEB (A & A) INH ONE (23:43)
[2019-09-07 00:02] LABS: BE 18.1 mmoll (-3.0-3.0); BLOOD TYPE ARTERIAL; HCO3-(ACT) 38.8 mmoll (20.0-26.0); O2(CT) 13.3 mL/dL (15.0-23.0); PO2(98.6) 173 mmHg (60-100); SAMPLE BLOOD; SAO2 98.4 % (95.0-100.0); THB 10.9 g/dL (11.5-17.4); pH(98.6) 7.34 (7.35-7.45)
[2019-09-07 00:26] LABS: ALLEN TEST NO; METHB 6.9 % (0.0-1.5); MODALITY CANNULA; O2HB 84.5 % (95.0-99.0); PCO2(98.6) 88 mmHg (35-45)
[2019-09-07 00:38] LABS: URINE SOURCE CATH
[2019-09-07 00:43] LABS: BASO# 0.02 X1000 (0.0-0.2); BASO% 0.1 % (0.0-0.8); EOS# 0.08 X1000 (0.0-0.7); EOS% 0.5 % (0.0-10.0); HEMATOCRIT 38.3 % (37.0-47.0); HEMOGLOBIN 11.6 g/dL (12.0-16.0); IMM GRAN# 0.05 X1000 (0.0-0.04); IMM GRAN% 0.3 % (0.0-0.5); LYMPH# 1.15 X1000 (1.2-3.4); LYMPH% 7.8 % (20.5-51.1); MCH 30.4 PG (27-31); MCHC 30.3 g/dL (33-37); MCV 100.3 FL (81-99); MONO# 1.65 X1000 (0.11-0.59); MONO% 11.2 % (1.7-9.3); MPV 9.1 FL (7.4-10.4); NEUT# 11.79 X1000 (1.4-6.5); NEUT% 80.1 % (42.2-75.2); PLT 597 X1000 (130-400); RBC 3.82 XMIL (4.2-5.4); RDW 16.1 % (11.5-14.5); WBC 14.74 X1000 (4.8-10.8)
[2019-09-07 00:45] LABS: BILIRUBIN URINE NEGATIVE (NEGATIVE); BLOOD URINE NEGATIVE (NEGATIVE); COLOR YELLOW; GLUCOSE URINE TRACE mg/dL (NEGATIVE); KETONE URINE 40 mg/dL (NEGATIVE); LEUKOCYTES URINE NEGATIVE (NEGATIVE); NITRITE URINE NEGATIVE (NEGATIVE); PROTEIN URINE 30 mg/dL (NEGATIVE); SP GRAVITY URINE 1.017; TURBIDITY URINE CLEAR (CLEAR); UROBILINOGEN URINE NORMAL (NORMAL)
[2019-09-07 00:46] LABS: UR EPITHELIAL CELLS <10 /HPF (<10); URINE BACTERIA NEGATIVE /HPF; URINE RBC <10 /HPF (<10); URINE WBC <10 /HPF (<10)
[2019-09-07 00:46] LABS: PROTIME 11.2 Seconds (11.0-16.0)
[2019-09-07 00:47] LABS: PTT 29.2 Seconds (22.3-41.8)
[2019-09-07 00:57] LABS: INR 0.78
[2019-09-07 01:00] LABS: ESTIMATED GFR > 60
[2019-09-07 01:02] LABS: AGAP 10; ALBUMIN 4.5 g/dL (3.5-5.0); ALKALINE PHOSPHATASE 71 U/L (32-104); BUN 7 mg/dL (8-22); CALCIUM 9.1 mg/dL (8.8-10.2); CHLORIDE 89 mmol/L (98-107); CK PROFILE 98 U/L (24-173); COSMO 277; CREATININE 0.3 mg/dL (0.5-0.9); GLUCOSE 167 mg/dL (70-104); GOT 24 U/L (10-30); GPT 36 U/L (10-36); POTASSIUM 4.9 mmol/L (3.5-5.1); SODIUM 138 mmol/L (136-145); TCO2 40 mmol/L (25-35); TOTAL BILIRUBIN < 0.15 mg/dL (0.20-1.00); TOTAL PROTEIN 7.1 g/dL (6.3-8.3)
--- NOTE | 2019-09-07 01:06 | PROVIDER DOCUMENTATION ---
This chart was entered by Kierra Shaffer Scribe, acting as scribe for Jody Sarah MD. HPI-General Adult - General Stated Complaint: uti, sob Time Seen by Provider: 09/06/19 23:38 Source: patient, EMS (First Response) Allergies/Adverse Reactions: Patient Allergies Allergy/AdvReac Type Severity Reaction Status Date / Time amoxicillin trihydrate * Allergy Intermediate RASH Verified 06/23/19 09:40 [From Augmentin] potassium clavulanate * Allergy Intermediate RASH Verified 06/23/19 09:40 [From Augmentin] nitrofurantoin Allergy ITCHING Verified 06/23/19 09:40 [From Macrobid] nitrofurantoin Allergy ITCHING Verified 06/23/19 09:40 macrocrystalline * [From Macrobid] Home Medications: Home Medication List Medication Instructions Recorded Confirmed Last Taken Type Alendronate [Fosamax] 70 mg PO Q7D 09/17/18 07/03/19 03/31/19 09:00 History Fluticasone 50 Mcg Nasal [place] 1 spray INTRANASAL DAILY 09/17/18 07/03/19 04/10/19 09:00 History [Flonase] Lipase/Protease/Amylase [Creon] 72,000 units PO AC 09/17/18 07/03/19 04/10/19 20:00 History Docusate Sodium [Colace] 200 mg PO QHS cap 10/31/18 07/03/19 Unknown Rx Mirtazapine [Remeron] 15 mg PO QHS 04/11/19 07/03/19 Unknown History Buspirone HCl 15 mg PO BID 06/03/19 07/03/19 Unknown History Cyclobenzaprine [Flexeril] 10 mg PO TID@0900,1500,2100 06/03/19 07/03/19 Unknown History Duloxetine HCl 60 mg PO DAILY 06/03/19 07/03/19 Unknown History Gabapentin 400 mg PO BID 06/03/19 07/03/19 Unknown History Oxycodone HCl/Acetaminophen 1 ea PO Q6H PRN PRN 07/04/19 07/04/19 Unknown History [Oxycodon-Acetaminophen 7.5-325] Albuterol 2.5MG/Ipratrop 0.5MG 3 ml INH RTQ4H #180 neb 07/09/19 Unknown Rx [Duoneb (A & A)] Methylprednisolone [Medrol Dosepak] 4 mg PO DIRECTED #1 pkg 07/09/19 Unknown Rx - History of Present Illness -Gen Adult Nature of Presenting Problems: Pt is a 64 yowf brought to the ED with c/o UTI symptoms for a month and SOB. Patient states that her drRenée told her over the phone that she possibly had pneumonia. Pt says she has pressure when she urinates and is constipated. Patient denies nausea and vomiting and say that she has had intermittent fever but did not use a thermometer. Pt has a hx of COPD and she admits she still smokes cigarettes. Pt uses O2 at home. Pt is thin and anxious. Location of Pain/Injury: reports: pelvis Pain Radiation: reports: no radiation Quality of Pain: reports: pressure Severity: reports: mild Onset/Duration: reports: unsure Timing: reports: still present Context/Activities at Onset: reports: light activity. denies: out of country travel Modifying Factors: worse with: exercise, movement Associated Symptoms: reports: constipation, fever/chills, genitourinary problems , shortness of breath, weakness. denies: diarrhea, dizziness, syncope, vomiting Similar Symptoms Previously?: Yes Recently seen or treated by another doctor?: Yes (talked to her PCP over the phone ) Review of Systems - Adult - REVIEW OF SYSTEMS - ADULT Constitutional: reports: see HPI, fever Eyes: reports: no symptoms reported Ears, Nose, Mouth & Throat: reports: no symptoms reported Cardiovascular: denies: chest pain, syncope Respiratory: reports: see HPI, shortness of breath Gastrointestinal: reports: see HPI, constipation. denies: abdominal pain, diarrhea, nausea, vomiting Genitourinary: reports: hesitency Musculoskeletal: reports: no symptoms reported Integumentary: reports: no symptoms reported Neurological: reports: no symptoms reported Psychiatric: reports: no symptoms reported Endocrine: reports: no symptoms reported Hematologic/Lymphatic: reports: no symptoms reported Allergic/Immunologic: reports: no symptoms reported All Other Systems: Reviewed and Negative Past History - Adult - PAST MEDICAL HISTORY-ADULT Review of Records: reports: Old Records Reviewed, Nursing Assessment Review, Medications Reviewed, Social history reviewed & non-contributory. Major Childhood Illnesses: reports: denies history Cardiovascular: reports: cardiac disease, CHF Respiratory: reports: COPD, pneumonia Gastrointestinal: reports: denies history Obstetrical/Gynecological: reports: denies history Genitourinary: reports: chronic UTI's Musculoskeletal: reports: chronic pain (opioid depenedent), neck/back injury Neurological: reports: denies history Psychiatric: reports: anxiety Endocrine/Immune: reports: denies history Other Conditions: reports: denies history - PRIOR SURGERIES/PROCEDURES Surgical/Procedure History: reports: reviewed, not pertinent - IMMUNIZATION STATUS Childhood Immunizations: UTD Flu Vaccine: UTD - FAMILY HISTORY Family History: reviewed, not pertinent - SOCIAL HISTORY Smoking: cigarettes, greater than 1 pack/day Substance Use: alcohol Alcohol Use Frequency: occasionally Number of drinks per typical drinking period:: 1 drink Living Situation: alone Physical Exam-General - PHYSICAL EXAM-ADULT Initial Vital Signs Reviewed: Yes (HR 106; O2 93 3L) - CONSTITUTIONAL General Appearance: alert, mild distress, thin - EYES Eyes: PERRL/EOMI, pink conjunctivae - HEAD, EARS, NOSE, MOUTH & THROAT HENMT: normocephalic/atraumatic, other (dry mucous membranes) - NECK Neck: non-tender - RESPIRATORY Respiratory: decreased breath sounds, wheezing (bilateral) - CARDIOVASCULAR Cardiovascular: normal peripheral pulses, tachycardia, other (tachypneic) - GASTROINTESTINAL (ABDOMEN) Abdominal Exam: non tender, soft - LYMPHATIC Lymphatic: no adenopathy - MUSCULOSKELETAL Back Exam: normal inspection, no CVA tenderness, no vertebral tenderness Extremity: non-tender - SKIN Integumentary: warm/dry, pallor - PSYCHIATRIC Psych/Mental Status: normal thought content, normal thought process, oriented x 3, anxious, depressed affect Progress - PLAN OF CARE/RESULTS Result Diagrams: 09/06/19 23:55 09/06/19 23:55 - REASSESSMENT Reassessment #1 Time Reassessed: 00:25 Status: unchanged (pt refusing BiPAP) - EKG 1 Time of EKG reading by physician:: 00:01 EKG Read and Signed by:: Jody Sarah (0 STEMI) EKG Interpretation (*Must complete 3 of following elements*): Abnormal Rate: 100 Rhythm: Sinus tachycardia [place]: normal Comments: Twave abnormality, consider anterolateral ischemia - XRAY 1 XRAY Study: Chest Impression: See EMR Report - CONSULTS/PCP/HOSPITALIST Notification #1 *Consult/PCP/Hospitalist*: d/w Dr Godfrey Time Discussed: 03:22 Consult Disposition: Admit (advised admit to [facility]) Departure - Departure Date of Disposition Decision: 09/07/19 Time of Disposition Decision: 03:25 DIAGNOSIS: Hypoxemia, COPD with exacerbation, Respiratory failure with hypercapnia Disposition: [place] [id number] Certified Medical Emergency: Emergent Condition: Poor - Critical Care Note This patient required my direct & personal management of CC.: Yes Total Time (mins): 40 Critical Care Statement: This patient required my direct personal management to treat or rule out processes, the absence of which, could potentiallly result in sudden, clinically significant life or limb threatening deterioration. Attestation - Physician/ FRANKIE Attestation Patient care was provided by Advanced Practice Provider:: No The physician spent face to face time with patient:: Yes Advanced Practice Provider documentation review:: Supervising physician onsite and consulted in the evaluation and care of this patient. The physician did have a face to face encounter with the patient. This chart was documented by the indicated scribe, (Kierra Shaffer, Steffi) and accurately reflects the services I performed and decisions made by me, Jody Sarah MD, as attested by the provider's signature.
[2019-09-07] MEDS ORDERED: LEVAQUIN 750 MG/D5W 750 MG/150 ML IVPB IV ONE (01:21)
[2019-09-07] MEDS ORDERED: PERCOCET-10 PO ONE (02:44)
--- NOTE | 2019-09-07 02:58 | EKG Report ---
Test Performed on : 09/06/2019 11:44:02 PM Test Reason : sob Blood Pressure : / mmHG Vent. Rate : 100 BPM Atrial Rate : 100 BPM P-R Int : 114 ms QRS Dur : 072 ms QT Int : 336 ms P-R-T Axes : 073 084 014 degrees QTc Int : 433 ms Normal sinus rhythm. Biatrial enlargement T wave abnormality, consider anterolateral ischemia Abnormal ECG When compared with ECG of 03-JUL-2019 22:44, (Unconfirmed) ST no longer depressed in Inferior leads Nonspecific T wave abnormality has replaced inverted T waves in Inferior leads Unconfirmed Result
[2019-09-07] MEDS ORDERED: ATIVAN ONE (03:09)
[2019-09-07] MEDS ORDERED: ATIVAN IV ONE ×2 (03:12→15:19)
[2019-09-07] MEDS ORDERED: SOLU-MEDROL IV ONE (03:27)
[2019-09-07 05:59] LABS: ALLEN TEST YES; BE 15.6 mmoll (-3.0-3.0); BLOOD TYPE ARTERIAL; HCO3-(ACT) 36.9 mmoll (20.0-26.0); PO2(98.6) 114 mmHg (60-100); SAMPLE BLOOD; SAO2 97.7 % (95.0-100.0); THB 10.9 g/dL (11.5-17.4); pH(98.6) 7.42 (7.35-7.45)
[2019-09-07 06:03] LABS: METHB 6.5 % (0.0-1.5); O2(CT) 13.4 mL/dL (15.0-23.0); O2HB 86.2 % (95.0-99.0); PCO2(98.6) 66 mmHg (35-45)
[2019-09-07 06:04] LABS: MODALITY CANNULA
[2019-09-07] MEDS ORDERED: TYLENOL PR PRN (06:16)
[2019-09-07] MEDS ORDERED: ZOFRAN IV PRN (06:16)
[2019-09-07] MEDS ORDERED: ROCEPHIN 1 GM in NS 50 ML IV SCH (06:30)
[2019-09-07] MEDS: NS 1,000 ML IV SCH ×2 (06:33→20:38)
[2019-09-07 07:22] LABS: UR AMPHETAMINES QUAL NONE DETECTED (NONE DETECT); UR BARBITUATES QUAL NONE DETECTED (NONE DETECT); UR BENZODIAZEPIN QUAL NONE DETECTED (NONE DETECT); UR CANNABINOIDS QUAL NONE DETECTED (NONE DETECT); UR COCAINE QUAL NONE DETECTED (NONE DETECT); UR METHADONE QUAL NONE DETECTED (NONE DETECT); UR METHAMPHETAMINE QUAL NONE DETECTED (NONE DETECT); UR OPIATES QUAL NONE DETECTED (NONE DETECT); UR OXYCODONE QUAL NONE DETECTED (NONE DETECT); UR PCP QUAL NONE DETECTED (NONE DETECT); UR PROPOXYPHENE QUAL NONE DETECTED (NONE DETECT); UR TCA QUAL NONE DETECTED (NONE DETECT)
--- NOTE | 2019-09-07 07:26 | Diag Imaging Result Doc PS360 ---
EXAM: CHEST-1 VIEW HISTORY: sepsis TECHNIQUE: Single view COMPARISON: 07/03/2019 FINDINGS: The lungs are hyperexpanded. The heart is not enlarged. The vessels are not distended. There are no infiltrates. No effusion identified. There are scattered granuloma. Scoliosis with fusion of the lower thoracic and lumbar spine. IMPRESSION: Emphysema. No pneumonia. Electronically signed by Layo Lugo 09/07/2019 7:24 AM
--- NOTE | 2019-09-07 07:42 | HISTORY AND PHYSICAL ---
PRIMARY CARE PHYSICIAN: Unknown. ADDENDUM REPORT: This is an addendum to the History and Physical dictated by the nurse practitioner. The patient was seen by me. The patient is a 64-year-old female with a history of COPD, substance use/abuse, and depression who presents with shortness of breath. The patient apparently was given one dose of Percocet and 1 mg of Ativan because she was agitated and the patient was aggressive and so by the time I saw the patient she was drowsy, sedated, and I could not really get any history from her. History is documented in the nurse practitioner's History and Physical notes. The patient's chest x-ray was reviewed and labs were reviewed. The chest x-ray suggests COPD and the patient was noted to have leukocytosis. The patient received levofloxacin from [facility] and initially tried on BiPAP but did not tolerate it and was given Ativan. When I saw the patient, the patient was on BiPAP; she was sedated and tolerating it. Initial ABG shows a pCO2 of 88 and a pH of 7.34. A repeat ABG showed improvement in pCO2 now at 66 and pH of 7.42. I reviewed the nurse practitioner's documentation, plans, and orders. We will continue the patient on BiPAP for an additional 1 hour and repeat an ABG. We will treat the patient's COPD exacerbation with IV methylprednisone 40 mg b.i.d., levofloxacin COPD dose 500 mg daily, and DuoNebs and I expect improvement in the patient's oxygenation and I will titrate patient off BiPAP to nasal cannula. We expect improvement in the patient's overall clinical status. We will monitor the patient closely for now. She is probably sedated because of Ativan use and patient can be reevaluated when she is easily arousable after the Ativan wears off. [facility]
--- NOTE | 2019-09-07 07:55 | HISTORY AND PHYSICAL ---
PRIMARY CARE PROVIDER: I believe is Dr. Yoandy Benedict but at this time, I was not able to confirm this with the patient, though he has recently written most of her prescriptions. DATE AND TIME: 09/07/2019 at 0540. CHIEF COMPLAINT: Shortness of breath. HISTORY OF PRESENT ILLNESS: Unfortunately at the time of my examination, the patient is very drowsy. She will respond to tactile stimulation and verbal calling of her name. She will open her eyes. She will moan and groan. Once or twice she was able to say a one word answers though after she would fall right back to sleep. The patient, according to the ER notes at [facility] was much more responsive, though at [facility] prior to her transfer, she was given Ativan 1 mg IV and p.o. Percocet 10 mg. I do believe this is likely the cause of her drowsiness along with she does have some hypercapnia. The patient reportedly presented to the ER at [facility] via EMS with complaints of UTI symptoms for a month and shortness of breath. She reported that she had pressure when she urinates and is constipated. She denied any nausea, vomiting. She reported intermittent fever, but stated she did not use a thermometer at home. The patient has a history of COPD. Admits she still smokes cigarettes. She according to the ER note, she is on home oxygen as well. Looking back at her previous visits the patient does have a history of frequent urinary tract infections due to urinary retention and she does have a history of interstitial cystitis. She does have a history of chronic constipation as well as chronic opioid use and chronic pain secondary to scoliosis, and multiple back surgeries. She has been afebrile since her arrival here at the hospital. There is no family present at bedside though she does have a daughter that is listed under her contacts by the name of Bernadette. We will try to see if the nurses can contact her daughter to address code status and possibly assist with any further information related to history of present illness. The patient was able to tell me that she had been short of breath for days. Though at this time, she is A/O x 0. When asked she would not tell me her name, date of or her current location. According to the nurse's report, upon her arrival here at [facility], she was agitated and was actually fighting them and trying to get out of bed. The nurse reports that she was able to tell her, her name and date of . We did go ahead and repeat an arterial blood gas which surprisingly did show an improvement in her pCO2 from 88 to 66. PH was within normal limits. PO2 was 114, HC03 was 36.9, base excess was 15.6, oxyhemoglobin was 86.2, and O2 saturation was 97.7. We have placed her back on the BiPAP at this time. The patient is tolerating this well. We have placed orders for continuous pulse oximetry and telemetry as well as frequent neuro checks. Chest x-ray performed at [facility] does appear to have COPD changes. There are no infiltrates noted though and we are awaiting the radiologist impression. I am going to add on an influenza screen. She has been placed in the PVC unit for close monitoring. REVIEW OF SYSTEMS: Unfortunately at this time a review of systems was unable to be performed for the patient due to her current condition and mentation. PAST MEDICAL HISTORY: This was obtained this was obtained from a previous history and physical in June 2019. 1. Urinary retention with frequent infection. 2. Interstitial cystitis. 3. Ulcerative colitis. 4. Pancreatic insufficiency. It looks as though in the past the patient has had difficulty affording her Creon and due to this, she has gone without this for periods of time in the past. We will try to see when she is more awake and alert if she is able to take this at this time. 5. Severe anorexia. 6. COPD on home oxygen nasal cannula 2 L. 7. Chronic back pain secondary to scoliosis, and multiple back surgeries. 8. Chronic opioid use with chronic constipation. 9. Anxiety, depression. 10. Osteoporosis. PAST SURGICAL HISTORY: 1. Three back surgeries for scoliosis correction. 2. Total arthroplasty of the right hip. SOCIAL HISTORY: The patient was a daily smoker for 30+ years. Though I am not able to confirm her smoking status at this time due to her condition and mentation, previously in June 2019, she was smoking 3 cigarettes per day. She has no known alcohol or illicit drug use. She reportedly uses a walker at home as needed. According to her most recent history and physical she does live with her brother and son and is on disability. She has 4 children. FAMILY HISTORY: Her mother has a history of hypertension. ALLERGIES: Patient has allergies to Augmentin, Macrobid and sensitivity to steroids which make her more jittery. HOME MEDICATIONS: We are waiting for the patient's home medication list to be updated and verified. Once done so we will address and continue appropriate medications. DIAGNOSTIC DATA: [place] [address], hemoglobin 11.6, hematocrit 38.3, platelet count is 597,000. PT 11.2, INR 0.78, PTT is 29.2. Sodium 138, potassium 4.9, chloride 89, serum bicarb is 40, BUN 7, creatinine 0.3, and GFR greater than 60, glucose 167, calcium 9.1. Liver function tests within normal limits. CK 98. Troponin T sensitivity is 20. ProBNP is 500. Plasma lactate is 0.9. Urinalysis showed positive for protein, ketones, though was negative for glucose, blood, nitrites, leukocytes, white blood cells, or bacteria. Arterial blood gases initial in the ER at [facility] were pH 7.34, pCO2 88, PO2 173, HC03 is 38.8 with a base excess of 18.1, oxyhemoglobin 84.5, O2 saturation of 98.4. Oxyhemoglobin of 7.3 and a methemoglobin. These were drawn on nasal cannula at 5 L with a 40% FiO2. They have since been repeated and have improved. Please see the patient's arterial blood gases in her EMR. EKG showed normal sinus rhythm with biatrial enlargement with T-wave abnormality, consider anterior lateral ischemia. This is a rate of 100 with a QTc of 433. Though this says normal sinus rhythm, according to the EKG, the patient's R to R is irregular. She does have P wave for every QRS. These are likely PACs. Portable chest x-ray does appear to have COPD changes. There does not appear to be any infiltrates present. We are awaiting the radiologist over-read and impression. PHYSICAL EXAMINATION: VITAL SIGNS: Temperature 97.5 degrees, heart rate 115, respirations 26, blood pressure 170/78, oxygen saturation is 93% on nasal cannula at 4 L. The patient's blood pressure at [facility] had not been elevated. She was reportedly very agitated upon her arrival here to our facility. I do believe this is the reason for her increase in her blood pressure. We are not going to treat this at this time. We will have them recheck it and if it remains elevated, we can implement antihypertensive as needed. GENERAL: Ms. Mcnulty is a 64-year-old, female who is very frail and emaciated in appearance. She is resting in bed and is not in any distress. She is arousable to verbal calling of her name and tactile stimulation. She will awaken, briefly open her eyes and close them back and go back to sleep. I was able to get 1 word answers out of her on 2 different questions. Other than this, I was not able to obtain hardly any information at all due to her current condition and mentation. HEENT: Head is atraumatic, normocephalic. Pupils are 2 mm bilaterally, are equal, round, reactive, though were slightly sluggish. Oral mucosa is slightly dry. Oropharynx is clear. NECK: Supple. Trachea midline. CARDIOVASCULAR: Patient had S1, S2 present. No murmurs, gallops, rubs appreciated with a regular rate and rhythm. PULMONARY: Patient has symmetrical chest expansion bilaterally. Lung sounds in bilateral upper and lower ashton did have crackles noted. ABDOMEN: Soft. Does not appear to be distended. She had bowel sounds present in all 4 quadrants, and were normoactive. At this time it is difficult to assess whether not the patient does have tenderness upon palpation due to her current condition and mentation. She has no guarding or facial grimacing noted upon palpation. EXTREMITIES: No cyanosis or edema noted. The patient does have a slight reddish discoloration noted of her bilateral toes. Capillary refill is 3 seconds though she does have good radial and pedal pulses that were 2+ bilaterally. INTEGUMENTARY: The patient's skin color is just very slightly pale. Skin warm, dry, and intact. NEUROLOGICAL: Patient is very drowsy. She is only arousable to verbal calling of her name and tactile stimulation. She will briefly open her eyes. I was able to get her to answer 1 or 2 of my questions with one-word answers and she would fall directly back to sleep. She is able move all extremities though unfortunately at this time her neurological exam is limited. ASSESSMENT AND PLAN: 1. COPD exacerbation. The patient does have a history of COPD, does wear home oxygen nasal cannula at 2 L. She reported to the [facility] that she has had shortness of breath. Upon questioning how long she had been short of breath, she answered "days." I am unsure if she has had a cough though she reported to [facility] ER that she felt as though she has had intermittent fever, though has no thermometer. The patient has been afebrile here. At this time, we have placed her on BiPAP. We will repeat arterial blood gases later on this morning at approximately 9 o'clock. We will continue with IV Solu-Medrol. Given her weight and it was mentioned on her previous admission notes that she is sensitive to steroids. We will do Solu-Medrol 40 mg IV q.12 hours. We will do aggressive pulmonary toilet with incentive spirometry, frequent turn, cough and deep breathing and scheduled DuoNeb treatments. We will place her with antibiotic coverage of IV Levaquin. Blood cultures have been obtained. We have ordered a sputum culture and influenza screen. We will continue to follow her respiratory status closely. 2. Encephalopathy. This is likely multifactorial. The patient is hypercapnic though upon a repeat arterial blood gases, her CO2 had improved from 88 to 66. She also does take several medications at home that could be contributing to this, which include BuSpar, Flexeril, Neurontin, mirtazapine and Percocet. She also did receive 1 mg Ativan IV and Percocet 10 mg p.o. in the ER prior to arrival here. The patient reportedly was agitated, fighting the BiPAP at [facility] and was agitated and fighting the nurses upon arrival at [facility]. Given that the patient's PO2 and O2 saturation as well as her vital signs are stable here at this time, we will not administer any reversal agents such as narcan. The patient is resting comfortably in the bed and is in no distress. She is tolerating the BiPAP well. We will continue to monitor closely. We will do frequent neuro checks and vital signs. She will be on continuous pulse oximetry and cardiac telemetry. We will repeat arterial blood gas at 9 o'clock. We have also ordered a urine drug screen. 3. Leukocytosis. This is of uncertain etiology. At this time the patient according to her chest x-ray does not appear to have any infiltrates. We are awaiting radiologist over read and impression. She does not have a urinary tract infection. The patient does frequently use steroids and could be secondary to this. We will await x-ray results. Blood cultures, sputum culture have been ordered. We will continue to follow. 4. Acute on chronic hypercapnic and hypoxic respiratory failure. We will continue with treatment as mentioned above in #1. 5. Chronic opioid use. 6. Chronic constipation. The patient reportedly complained of constipation upon arrival to the ER although at this time this is difficult to assess due to her mentation. We will monitor this closely. Once she is more awake and alert, we can continue her regularly prescribed bowel regimen and make adjustments as necessary. 7. Anxiety and depression. We are waiting for home medication list to be updated and verified though we are holding these medicines at this time given her neurological status. 8. Hyperglycemia. Upon reviewing the patient's previous serum glucose levels she is always mildly hyperglycemic though usually when she is admitted she is here for COPD exacerbations and is receiving steroids. This may be steroid induced hyperglycemia, but we are going to order an hemoglobin A1C and perform pattern FSBS. We will implement a sliding scale insulin if needed. 9. Malnutrition. We placed orders for a dietitian consultation. 10.Deep vein thrombosis prophylaxis. Will provided with sequential compression devices. The patient has been placed in the PVC unit for close monitoring. We will do strict intake and output, incentive spirometry. We have implemented aspiration precautions. She will be NPO until she is more awake and alert. Further orders and recommendations pending hospital course, diagnostic studies, and physician evaluation. Dictated by NASREEN Carrillo for Suhail Jo MD [facility]
[2019-09-07] MEDS: DUONEB (A & A) INH SCH ×5 (08:16→22:38)
[2019-09-07] MEDS: SOLU-MEDROL IV SCH ×2 (08:27→20:38)
[2019-09-07 09:26] LABS: BASO# 0.01 X1000 (0.0-0.2); BASO% 0.1 % (0.0-0.8); EOS# 0.47 X1000 (0.0-0.7); EOS% 4.8 % (0.0-10.0); HEMATOCRIT 37.7 % (37.0-47.0); HEMOGLOBIN 11.6 g/dL (12.0-16.0); IMM GRAN# 0.07 X1000 (0.0-0.04); IMM GRAN% 0.7 % (0.0-0.5); LYMPH# 0.41 X1000 (1.2-3.4); LYMPH% 4.2 % (20.5-51.1); MCH 30.5 PG (27-31); MCHC 30.8 g/dL (33-37); MCV 99.2 FL (81-99); MONO# 0.09 X1000 (0.11-0.59); MONO% 0.9 % (1.7-9.3); MPV 9.4 FL (7.4-10.4); NEUT% 89.3 % (42.2-75.2); PLT 361 X1000 (130-400); RDW 16.3 % (11.5-14.5); WBC 9.85 X1000 (4.8-10.8)
[2019-09-07 09:46] LABS: ESTIMATED GFR > 60
[2019-09-07 09:47] LABS: ALLEN TEST YES; BE 13.8 mmoll (-3.0-3.0); BLOOD TYPE ARTERIAL; HCO3-(ACT) 35.5 mmoll (20.0-26.0); PO2(98.6) 156 mmHg (60-100); SAMPLE BLOOD; SAO2 98.1 % (95.0-100.0); THB 10.3 g/dL (11.5-17.4); pH(98.6) 7.36 (7.35-7.45)
[2019-09-07 09:48] LABS: AGAP 13; ALB/GLOB RATIO 1.4; ALBUMIN 3.9 g/dL (3.5-5.0); ALKALINE PHOSPHATASE 68 U/L (32-104); BUN 6 mg/dL (8-22); CHLORIDE 87 mmol/L (98-107); COSMO 272; CREATININE 0.3 mg/dL (0.5-0.9); GLUCOSE 145 mg/dL (70-104); GOT 20 U/L (10-30); GPT 30 U/L (10-36); HEMOGLOBIN A1C 4.2 % (4.8-6.0); POTASSIUM 4.8 mmol/L (3.5-5.1); SODIUM 136 mmol/L (136-145); TCO2 36 mmol/L (25-35); TOTAL BILIRUBIN 0.15 mg/dL (0.20-1.00); TOTAL PROTEIN 6.7 g/dL (6.3-8.3)
[2019-09-07 09:54] LABS: METHB 6.6 % (0.0-1.5); MODALITY BI PAP; O2HB 87.2 % (95.0-99.0); PCO2(98.6) 74 mmHg (35-45)
[2019-09-07 10:14] LABS: CK INDEX 3.5 (0.0-2.5); CK-MB 6.52 ng/mL (0.0-5.0)
--- NOTE | 2019-09-07 11:45 | PROGRESS NOTE ---
DATE: 09/07/2019 SUBJECTIVE: I have seen and examined Ms. Mcnulty today. She was on the BiPAP so she could barely articulate anything. She said she was not feeling well. OBJECTIVE: Vital signs: Blood pressure is 156/104, pulse of 109, respirations 20, temperature 97.6 degrees. General: Ms. Mcnulty is a 64-year-old elderly female. She is in bed. She is currently on the BiPAP. Neck: Supple. Chest: Air entry is bilaterally reduced. Some prolonged expiratory phase of respiration. Cardiovascular: Slightly tachycardic but no murmurs. Gastrointestinal: Abdomen is soft. Extremities: No pedal edema. Central nervous system: The patient is awake, alert. Follows basic commands. She is on a BiPAP. LABORATORY DATA: WBC is 9.85, hemoglobin is 11.6, platelet count of 366,000. ABG, pH is 7.36, pCO2 of 74, PaO2 of 156. Carboxyhemoglobin is down to 4.5, methemoglobin is 6.6. Chemistry shows a bicarb of 36. IMAGING: Chest x-ray shows emphysema. No pneumonia. MEDICATIONS: Have all been reviewed. ASSESSMENT: 1. Acute on chronic hypoxemic respiratory failure. 2. Acute on chronic hypercarbic respiratory failure. 3. Severe chronic obstructive pulmonary disease with moderate to severe exacerbation. 4. Altered mental status secondary to global encephalopathy, improving. 5. Chronic constipation. 6. Chronic opioid use. 7. Carboxyhemoglobinemia secondary ongoing tobacco use. PLAN: In general, I think Ms. Mcnulty continues to be pretty sick due to COPD severe exacerbation. She is on a BiPAP now. We will continue with the Levaquin. I have added doxycycline for MRSA and also atypical coverage. PCO2 is still high. We are going to repeat the ABG in the next 6 hours. cc: Marques Oliver MD
[2019-09-07] MEDS: HALDOL IV PRN (13:53)
[2019-09-07] MEDS: DOXYCYCLINE 100 MG in NS 250 ML IV SCH (14:22)
[2019-09-07] MEDS: MORPHINE IV PRN ×2 (15:52→23:28)
[2019-09-08] MEDS: DOXYCYCLINE 100 MG in NS 250 ML IV SCH ×2 (00:33→13:55)
[2019-09-08] MEDS: DUONEB (A & A) INH SCH ×6 (03:12→22:45)
[2019-09-08] MEDS: MORPHINE IV PRN ×2 (03:54→08:14)
[2019-09-08] MEDS: HALDOL IV PRN ×2 (03:54→08:13)
[2019-09-08] MEDS: LEVAQUIN 500 MG in NS 100 ML IV SCH (03:55)
[2019-09-08 05:17] LABS: ALLEN TEST YES; BE 7.1 mmoll (-3.0-3.0); BLOOD TYPE ARTERIAL; HCO3-(ACT) 30.3 mmoll (20.0-26.0); O2(CT) 12.9 mL/dL (15.0-23.0); PO2(98.6) 142 mmHg (60-100); SAMPLE BLOOD; SAO2 97.8 % (95.0-100.0); THB 10.3 g/dL (11.5-17.4); pH(98.6) 7.39 (7.35-7.45)
[2019-09-08 05:19] LABS: METHB 6.8 % (0.0-1.5); PCO2(98.6) 55 mmHg (35-45)
[2019-09-08 05:20] LABS: MODALITY VENTIMASK; O2HB 87.2 % (95.0-99.0)
[2019-09-08 06:27] LABS: HEMATOCRIT 37.7 % (37.0-47.0); HEMOGLOBIN 11.3 g/dL (12.0-16.0); MPV 9.1 FL (7.4-10.4); RBC 3.77 XMIL (4.2-5.4); RDW 16.3 % (11.5-14.5); WBC 12.06 X1000 (4.8-10.8)
[2019-09-08 06:52] LABS: AGAP 16; ALBUMIN 3.8 g/dL (3.5-5.0); BUN 9 mg/dL (8-22); CALCIUM 8.9 mg/dL (8.8-10.2); CHLORIDE 96 mmol/L (98-107); COSMO 281; CREATININE 0.4 mg/dL (0.5-0.9); ESTIMATED GFR > 60; GLUCOSE 147 mg/dL (70-104); PHOSPHORUS 2.2 mg/dL (2.7-4.5); POTASSIUM 4.4 mmol/L (3.5-5.1); SODIUM 140 mmol/L (136-145); TCO2 28 mmol/L (25-35)
[2019-09-08] MEDS: SOLU-MEDROL IV SCH ×2 (08:14→20:27)
[2019-09-08] MEDS: NEUTRA-PHOS PO SCH ×4 (10:50→20:27)
--- NOTE | 2019-09-08 11:45 | PROGRESS NOTE ---
DATE: 09/08/2019 SUBJECTIVE: I have seen and examined Ms. Mcnulty this morning. Ms. Mcnulty refers to be doing well. She says she has just cramps on her back. She was just seen, obviously very fidgety. Earlier on, I was told that she was very persistently agitated, and had to be put in 2-point restraint. This morning, she did say she is having cramps to her back. OBJECTIVE: Vital Signs: Blood pressure is 148/74, pulse of 118, respirations 21, temperature 98.4 degrees. General: Ms. Mcnulty is a 64-year-old, elderly, female. She is in bed. No distress. HEENT: Mucosa is pink and moist. Anicteric. Acyanotic. Neck: Supple. There is no JVD. Chest: Air entry is bilaterally reduced. There is still some prolonged expiratory phase of respiration, some distant wheezing, but no crackles. Cardiovascular: Regular rate and rhythm. No murmurs, no rubs, no gallops. GI: Abdomen was soft, nontender. Bowel sounds present. No hepatosplenomegaly. Extremities: No pedal edema. 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 No focal deficit. LABORATORY DATA: WBC is 12.06, hemoglobin is 11.3, platelet count of 610,000. Chemistry is also reviewed and is completely within normal range, except for phosphorus, which is 2.2. So far, blood culture is pending. Sputum culture has not been done yet. ASSESSMENT: 1. Acute on chronic, both hypoxemic and hypercarbic respiratory failure. 2. Advanced chronic obstructive pulmonary disease with [id number] exacerbation. The patient is on antibiotics, bronchodilation therapy, and steroids. 3. Altered mental status on presentation secondary to global encephalopathy. 4. Delirium during the hospital course. 5. Chronic constipation, most likely due to chronic opioid use. 6. Carboxyhemoglobinemia, improved. 7. Methemoglobinemia. Noted. I have not seen any medication that could be causing this on the patient. 8. Chronic pain syndrome. 9. Status post lumbar surgery. 10. Anxiety disorder. This morning, we are going to start Ms. Mcnulty back on her home medications, including the gabapentin, buspirone, and Flexeril, as well as the duloxetine. Will also put as needed Ativan if needed. She looks remarkably anxious. Will re-evaluate her later today once her medications have been restarted. I am concerned if she could be withdrawing from any of those psychotropic medications. Obviously, we need to be extremely careful with the use of narcotics and benzodiazepine in Ms. Mcnulty, who seems to have a tendency to not breathe very well, retaining CO2. I have also discussed extensively about tobacco cessation today. cc: Marques Oliver MD
[2019-09-08] MEDS: ATIVAN IV PRN (12:17)
[2019-09-08] MEDS: FLEXERIL PO SCH ×2 (16:19→20:27)
[2019-09-08] MEDS: NON-FORMULARY MED PO SCH (17:00)
[2019-09-08] MEDS: BUSPAR PO SCH (20:27)
[2019-09-08] MEDS: XANAX PO SCH (20:27)
[2019-09-08] MEDS: NEURONTIN PO SCH (20:27)
[2019-09-09] MEDS: DOXYCYCLINE 100 MG in NS 250 ML IV SCH ×2 (00:20→14:30)
[2019-09-09] MEDS: PERCOCET-5 PO PRN ×4 (00:43→20:17)
[2019-09-09] MEDS: DUONEB (A & A) INH SCH ×6 (03:43→23:07)
[2019-09-09] MEDS: LEVAQUIN 500 MG in NS 100 ML IV SCH (03:44)
[2019-09-09] MEDS: ATIVAN IV PRN ×2 (04:30→21:00)
[2019-09-09 06:13] LABS: HEMATOCRIT 37.4 % (37.0-47.0); HEMOGLOBIN 11.1 g/dL (12.0-16.0); MCH 29.8 PG (27-31); MCHC 29.7 g/dL (33-37); MCV 100.5 FL (81-99); MPV 8.6 FL (7.4-10.4); RBC 3.72 XMIL (4.2-5.4); RDW 16.1 % (11.5-14.5); WBC 8.33 X1000 (4.8-10.8)
[2019-09-09 06:26] LABS: AGAP 12; ALBUMIN 3.2 g/dL (3.5-5.0); BUN 13 mg/dL (8-22); CALCIUM 8.9 mg/dL (8.8-10.2); CHLORIDE 97 mmol/L (98-107); COSMO 281; CREATININE 0.3 mg/dL (0.5-0.9); ESTIMATED GFR > 60; GLUCOSE 100 mg/dL (70-104); PHOSPHORUS 3.2 mg/dL (2.7-4.5); POTASSIUM 4.2 mmol/L (3.5-5.1); SODIUM 141 mmol/L (136-145); TCO2 32 mmol/L (25-35)
[2019-09-09] MEDS: NON-FORMULARY MED PO SCH ×3 (07:01→15:11)
[2019-09-09] MEDS: SOLU-MEDROL IV SCH ×2 (08:48→20:19)
[2019-09-09] MEDS: NEUTRA-PHOS PO SCH ×4 (08:49→20:18)
[2019-09-09] MEDS: BUSPAR PO SCH ×2 (08:49→20:18)
[2019-09-09] MEDS: FLEXERIL PO SCH ×3 (08:50→20:18)
[2019-09-09] MEDS: NEURONTIN PO SCH ×2 (08:50→20:17)
[2019-09-09] MEDS: CYMBALTA PO SCH (08:50)
[2019-09-09 09:01] LABS: ALLEN TEST YES; BE 9.6 mmoll (-3.0-3.0); BLOOD TYPE ARTERIAL; HCO3-(ACT) 32.1 mmoll (20.0-26.0); O2(CT) 13.5 mL/dL (15.0-23.0); PO2(98.6) 65 mmHg (60-100); SAMPLE BLOOD; SAO2 92.9 % (95.0-100.0); THB 11.4 g/dL (11.5-17.4); pH(98.6) 7.44 (7.35-7.45)
[2019-09-09 09:05] LABS: PCO2(98.6) 52 mmHg (35-45)
[2019-09-09 09:06] LABS: METHB 5.9 % (0.0-1.5); O2HB 83.9 % (95.0-99.0)
[2019-09-09 09:07] LABS: MODALITY CANNULA
[2019-09-09] MEDS: MORPHINE IV PRN ×3 (12:31→21:00)
--- NOTE | 2019-09-09 16:32 | PROGRESS NOTE ---
DATE: 09/09/2019 SUBJECTIVE: This morning Ms. Mcnulty referred to be doing a little better. Denies any new complaints. Still has some shortness of breath, but she thinks is getting better. OBJECTIVE: Vital Signs: Blood pressure is 118/68, pulse of 98, respirations 22, temperature 97.7 degrees. The patient is saturating 100% on nasal cannula. Intake and Output - the patient has continued to make adequate urine output. General: Ms. Mcnulty is a 64-year-old elderly female. She was in bed on nasal cannula for supplemental oxygen. She did not seem to be in any cardiopulmonary distress. HEENT: Mucosa is pink and moist. Anicteric. Acyanotic. Neck: Supple. Chest: Air entry was bilaterally reduced. There is a prolonged expiratory phase of respiration. Some distant wheezing but no crackles. Cardiovascular: Regular rate and rhythm. No murmurs, no rubs, no gallops. Gastrointestinal: Abdomen is soft, nontender. Bowel sounds present. [employer] FORMER: Patient is awake, alert, oriented. There is no focal deficit. LABORATORY DATA: WBC is 8.833, hemoglobin is 11.1, platelet count of 521,000. ABGs shows pCO2 of 52, PaO2 of 65. Blood cultures have been 48 hours and negative. IMAGING STUDIES: No imaging studies for today. MEDICATIONS: Have all been reviewed and no changes. ASSESSMENT: 1. Acute on chronic, both hypoxemic and hypercarbic respiratory failure, improved. Patient is currently on 4 L of supplemental oxygen. She is saturating well. She is at home on 3, so I think she is almost at baseline. 2. Advanced chronic obstructive pulmonary disease with moderate to severe exacerbation on admission. The patient seems to have significantly improved. She is wheezing less. She is currently on antibiotics, bronchodilation therapy and steroids. 3. Altered mental status on presentation secondary to global encephalopathy. The patient has improved. 4. Delirium, resolved. 5. Chronic constipation secondary to chronic opioid use. The patient is on a bowel regimen. 6. Methemoglobinemia and carboxyhemoglobinemia presumably from tobacco use. The patient advised. 7. Chronic pain syndrome on outpatient management. Patient has been advised to follow up with her primary care, Dr. Benedict. 8. Status post lumbar surgery in the past. 9. Anxiety disorder. PLAN: In general Ms. Mcnulty is a 64-year-old female with advanced COPD who continues to utilize tobacco at home, came in because of both hypoxemic and hypercarbic respiratory failure. At some point she was on BiPAP therapy. She has significantly improved. She is currently on 4 L and she normally used 3 L at home. We are going to continue with the current management for another 24 hours and re-evaluate her tomorrow and decide if she can potentially be discharged. Ms. Mcnulty will need to follow up with her primary care, Dr. Benedict. She has been advised on tobacco cessation. cc: Marques Oliver MD
[2019-09-09] MEDS: XANAX PO SCH (20:16)
[2019-09-10] MEDS: DOXYCYCLINE 100 MG in NS 250 ML IV SCH ×3 (02:13→13:27)
[2019-09-10] MEDS: PERCOCET-5 PO PRN ×3 (02:48→17:10)
[2019-09-10] MEDS: DUONEB (A & A) INH SCH ×6 (03:08→23:35)
[2019-09-10] MEDS: MORPHINE IV PRN ×2 (04:02→21:14)
[2019-09-10 04:42] LABS: ALLEN TEST YES; BE 13.5 mmoll (-3.0-3.0); BLOOD TYPE ARTERIAL; HCO3-(ACT) 35.3 mmoll (20.0-26.0); O2(CT) 12.8 mL/dL (15.0-23.0); PCO2(98.6) 45 mmHg (35-45); PO2(98.6) 173 mmHg (60-100); SAMPLE BLOOD; SAO2 98.5 % (95.0-100.0); pH(98.6) 7.53 (7.35-7.45)
[2019-09-10 04:45] LABS: MODALITY CANNULA
[2019-09-10 04:46] LABS: O2HB 88.1 % (95.0-99.0)
[2019-09-10 04:47] LABS: METHB 6.6 % (0.0-1.5)
[2019-09-10] MEDS: LEVAQUIN 500 MG in NS 100 ML IV SCH (04:48)
[2019-09-10] MEDS: NON-FORMULARY MED PO SCH ×3 (06:01→17:06)
[2019-09-10 06:07] LABS: HEMATOCRIT 33.3 % (37.0-47.0); HEMOGLOBIN 10.1 g/dL (12.0-16.0); MCH 29.9 PG (27-31); MCHC 30.3 g/dL (33-37); MCV 98.5 FL (81-99); MPV 8.6 FL (7.4-10.4); RBC 3.38 XMIL (4.2-5.4); RDW 15.8 % (11.5-14.5); WBC 6.77 X1000 (4.8-10.8)
[2019-09-10] MEDS: ATIVAN IV PRN ×2 (06:27→10:53)
[2019-09-10 06:32] LABS: AGAP 11; ALBUMIN 2.9 g/dL (3.5-5.0); BUN 14 mg/dL (8-22); CALCIUM 8.9 mg/dL (8.8-10.2); CHLORIDE 94 mmol/L (98-107); COSMO 283; CREATININE 0.3 mg/dL (0.5-0.9); ESTIMATED GFR > 60; GLUCOSE 254 mg/dL (70-104); PHOSPHORUS 3.8 mg/dL (2.7-4.5); POTASSIUM 4.3 mmol/L (3.5-5.1); SODIUM 137 mmol/L (136-145); TCO2 32 mmol/L (25-35)
[2019-09-10] MEDS: SOLU-MEDROL IV SCH ×2 (09:40→20:24)
[2019-09-10] MEDS: CYMBALTA PO SCH (09:40)
[2019-09-10] MEDS: FLEXERIL PO SCH ×3 (09:40→20:24)
[2019-09-10] MEDS: BUSPAR PO SCH ×2 (09:40→20:24)
[2019-09-10] MEDS: NEURONTIN PO SCH ×2 (09:40→20:24)
--- NOTE | 2019-09-10 13:30 | PROGRESS NOTE ---
DATE: 09/10/2019 SUBJECTIVE: Dr. Yoandy Benedict, I believe is her doctor. She came in with shortness of breath. She was very drowsy at the time they examined her. She responded to tactile stimulation, verbal, calling her name, opened her eyes. PAST MEDICAL HISTORY: 1. Urinary retention, frequent infection. 2. Interstitial cystitis. 3. Ulcerative colitis. 4. Pancreatic insufficiency. Looks as though in the past patient has had a difficult time affording her Creon. Due to that, she has gone for periods of time without taking it. 5. Severe anoxia. 6. COPD on home oxygen at 2 L at home. 7. Chronic back pain secondary to scoliosis, multiple back surgeries. 8. Chronic opioid use, chronic constipation. 9. Anxiety, depression. 10. Osteoporosis. PAST SURGICAL HISTORY: 1. Three back surgeries for scoliosis correction. 2. Total arthroplasty of right hip in the past. HISTORY OF PRESENT ILLNESS: She was admitted with COPD exacerbation and some encephalopathy thought to be multifactorial. She did have several medications at home including BuSpar, Flexeril, Neurontin, mirtazapine, and Percocet and did receive some IV Ativan and Percocet in the ER on arrival, she had leukocytosis of uncertain etiology, acute on chronic hypercapnic and hypoxemic respiratory failure, chronic opioid use, chronic constipation, and anxiety and depression history with some hyperglycemia. She was lethargic this morning; I helped her sit up. She wanted to eat a little bit of lunch. OBJECTIVE: Vital Signs: She remains afebrile, temperature 97.7 degrees, pulse 99, respirations 18, blood pressure 108/57. HEENT: Pupils are equal and round. Lungs are clear in all lung ashton. Cardiovascular: Regular rate without murmur or S3. Abdomen: Soft. Integument: Skin is warm and dry. URINE OUTPUT: 1100 mL. ASSESSMENT AND PLAN: 1. Acute on chronic both hypoxemic and hypercapnic respiratory failure. Patient currently getting 4 L supplemental O2. Seems to be moving air a little better. 2. Advanced chronic obstructive pulmonary disease, moderate to severe exacerbation on admission and her air and gas exchange seem to be improving. 3. Altered mental status, suspect multifactorial and I suspect medication is a big part of it. 4. Delirium which has resolved. 5. Chronic constipation secondary to chronic opioid use. 6. Methemoglobin, carboxyhemoglobinemia presumably from tobacco use. Of course, she has been counseled and advised to quit smoking. 7. Status post lumbar surgery in the past, chronic pain. 8. Anxiety and depression. 9. Review of her current medications: She is getting Xanax 0.25 mg at bedtime, BuSpar 15 mg p.o. b.i.d., doxycycline 250 mg IV q.12, Cymbalta 60 mg p.o. daily, Neurontin 400 mg b.i.d., Levaquin 500 mg IV q.24 hours. She takes 1-1/2 of the oxycodone 5 mg q.6 hours p.r.n. pain. LABORATORY DATA: Review of her lab from today, white count 6770, hematocrit is 33, platelet count is 526,000. Sodium 137, potassium 4.3, chloride 94, BUN 14, creatinine 0.3, blood sugar 227, 154 to 254, 252, 161. cc: Abel Turner MD
--- NOTE | 2019-09-10 14:20 | Diag Imaging Result Doc PS360 ---
CHEST-PORTABLE - 09/08/2019 INDICATION: dyspnea COMPARISON: 09/07/2019 FINDINGS: Stable hyperexpanded lungs compatible with COPD. No infiltrates or edema. No pneumothorax or pleural effusion. Heart size remains normal. IMPRESSION: COPD. No acute disease. Electronically signed by Kanu Meeks 09/10/2019 2:17 PM
[2019-09-10] MEDS: XANAX PO SCH (20:24)
[2019-09-11] MEDS: PERCOCET-5 PO PRN ×4 (00:09→19:11)
[2019-09-11] MEDS: ATIVAN IV PRN ×3 (01:47→22:36)
[2019-09-11] MEDS: DOXYCYCLINE 100 MG in NS 250 ML IV SCH ×2 (01:47→14:38)
[2019-09-11] MEDS: DUONEB (A & A) INH SCH ×6 (03:40→23:44)
[2019-09-11] MEDS: LEVAQUIN 500 MG in NS 100 ML IV SCH (04:32)
[2019-09-11] MEDS: MORPHINE IV PRN ×3 (04:33→14:41)
[2019-09-11] MEDS: NON-FORMULARY MED PO SCH ×3 (06:11→17:39)
[2019-09-11] MEDS: FLEXERIL PO SCH ×4 (07:55→21:13)
[2019-09-11] MEDS: CYMBALTA PO SCH ×2 (07:55→08:10)
[2019-09-11] MEDS: SOLU-MEDROL IV SCH ×3 (07:55→21:14)
[2019-09-11] MEDS: NEURONTIN PO SCH ×3 (07:55→21:14)
[2019-09-11] MEDS: BUSPAR PO SCH ×3 (07:56→21:12)
--- NOTE | 2019-09-11 14:05 | PROGRESS NOTE ---
DATE: 09/11/2019 SUBJECTIVE: 1. Ms. Mcnulty was admitted on 09/07/2019. Presented with shortness of breath. I think Dr. Yoandy Benedict is her doctor. She was very drowsy on presentation, short of breath, thought she had a COPD exacerbation, history of COPD on home oxygen. Reported to ER [facility] with shortness of breath. Upon questioning, not sure how long she has had a cough. She was put on BiPAP for a while and started on IV Solu-Medrol and broad spectrum antibiotics, is doing much better. 2. Encephalopathy, thought multifactorial. Hypercapnia and hypoxemia played a role as well as her multiple medications including Ativan, Percocet, Neurontin, mirtazapine. 3. Leukocytosis, uncertain etiology. 4. Acute on chronic hypercapnic and hypoxemic respiratory failure, which is improved. 5. Chronic opioid use. 6. Chronic constipation. 7. Anxiety and depression. 8. Hyperglycemia. I think we can move her to the floor. OBJECTIVE: On exam today, she was sitting up and awake and alert, oriented x3. Temperature 98.2 degrees, pulse 95, respirations 20, blood pressure 118/59. Pupils are equal and round. Lungs are clear in all lung [place]. Cardiovascular: Regular rhythm and rate without murmur or S3. Urine output was 1600 mL. ASSESSMENT AND PLAN: I do not see any change in present orders. I will let her move to the floor. She is on Xanax 0.25 mg at bedtime, BuSpar 15 mg b.i.d., doxycycline 100 mg IV q.12, Cymbalta 60 mg a day, Neurontin 400 mg b.i.d., methylprednisone 40 mg IV q.12, and she is getting oxycodone 5 mg 1-1/2 tablet q.6 hours p.r.n. pain. cc: Abel Turner MD
[2019-09-11] MEDS: XANAX PO SCH (21:12)
[2019-09-12] MEDS: DOXYCYCLINE 100 MG in NS 250 ML IV SCH ×2 (02:34→14:12)
[2019-09-12] MEDS: DUONEB (A & A) INH SCH ×6 (03:45→23:16)
[2019-09-12] MEDS: LEVAQUIN 500 MG in NS 100 ML IV SCH (05:03)
[2019-09-12] MEDS: PERCOCET-5 PO PRN ×3 (05:51→22:30)
[2019-09-12] MEDS: NON-FORMULARY MED PO SCH ×3 (06:21→18:17)
[2019-09-12] MEDS: SOLU-MEDROL IV SCH ×2 (09:09→20:52)
[2019-09-12] MEDS: MORPHINE IV PRN ×2 (09:09→20:52)
[2019-09-12] MEDS: NEURONTIN PO SCH ×2 (09:09→20:52)
[2019-09-12] MEDS: CYMBALTA PO SCH (09:10)
[2019-09-12] MEDS: BUSPAR PO SCH ×2 (09:10→20:52)
[2019-09-12] MEDS: FLEXERIL PO SCH ×3 (09:11→20:52)
[2019-09-12] MEDS: ATIVAN IV PRN ×2 (10:20→22:29)
--- NOTE | 2019-09-12 12:13 | PROGRESS NOTE ---
DATE: 09/12/2019 SUBJECTIVE: Ms. Mcnulty is feeling much better. She is able to ambulate. She is breathing better. She is eating and she is talking about wanting to go home tomorrow. She still has quite a bit of tightness and discomfort in the right posterior hip and her lower back. She remains afebrile. OBJECTIVE: Temperature 98 degrees, pulse 90, respirations 18, blood pressure 137/70. Pupils are equal and round. Lungs are clear in all lung [place]. Cardiovascular Examination: Regular rhythm and rate without murmur or S3. Abdomen is soft. Skin is warm and dry. Urine output is 1300 mL. Blood sugars have been well controlled. ASSESSMENT AND PLAN: 1. She was admitted on 09/07/2019 with shortness of breath. Dr. Yoandy Benedict was her doctor. She was very drowsy on presentation and remained drowsy for a good 24 hours, and appeared to have some chronic obstructive pulmonary disease exacerbation. She has a history of chronic obstructive pulmonary disease, on home oxygen. She reported to the [place] emergency room, short of breath and then was put on BiPAP for a while, and started on Solu-Medrol, broad- spectrum antibiotics. Doing better. 2. Encephalopathy, suspect a combination of her hypercapnia, hypoxemia, and her medications. 3. Leukocytosis, which is resolved. Suspect just stress demargination. 4. Acute on chronic hypercapnic, hypoxemic respiratory failure, which is improved. Better air and gas exchange. 5. Chronic opioid use. Aware. 6. Chronic constipation. 7. Anxiety and depression. 8. Hyperglycemia. 9. Plan is to go home with home health, probably tomorrow. She would like maybe to think about inpatient rehab later on. I will get social group worker to talk to her. REVIEW OF HER MEDICATIONS: She is on Xanax 0.25 mg at bedtime, BuSpar 15 mg b.i.d., takes Flexeril 10 mg p.o. t.i.d. for her lower back muscle spasms. She is on Cymbalta 60 mg a day, Neurontin 400 mg p.o. b.i.d. I will continue methylprednisone 40 mg IV q.12. She is getting Levaquin 500 mg q.24 hours. I do not see any source of a bacterial infection. Her chest x-ray from 09/08/2019 showed no infiltrate. She does have COPD. cc: Abel Turner MD
[2019-09-12] MEDS: XANAX PO SCH (20:52)
[2019-09-13] MEDS: DUONEB (A & A) INH SCH ×4 (04:30→15:29)
[2019-09-13] MEDS: LEVAQUIN 500 MG in NS 100 ML IV SCH (05:29)
[2019-09-13] MEDS: DOXYCYCLINE 100 MG in NS 250 ML IV SCH ×2 (05:29→15:45)
[2019-09-13] MEDS: ATIVAN IV PRN ×2 (05:33→17:21)
[2019-09-13] MEDS: PERCOCET-5 PO PRN ×3 (05:33→15:46)
[2019-09-13] MEDS: NON-FORMULARY MED PO SCH ×3 (06:01→15:47)
[2019-09-13] MEDS: CYMBALTA PO SCH (10:07)
[2019-09-13] MEDS: BUSPAR PO SCH (10:07)
[2019-09-13] MEDS: SOLU-MEDROL IV SCH (10:07)
[2019-09-13] MEDS: NEURONTIN PO SCH (10:07)
[2019-09-13] MEDS: FLEXERIL PO SCH ×2 (10:07→15:46)
[2019-09-13] MEDS ORDERED: BLISTEX MEDICATED BERRY LIP BALM TOP PRN (10:19)
[2019-09-13] MEDS ORDERED: DUONEB (A & A) ONE (11:53)
[2019-09-13] MEDS: MORPHINE IV PRN (12:11)
--- NOTE | 2019-09-13 12:24 | DISCHARGE SUMMARY ---
ADMISSION DATE: 09/07/2019 DISCHARGE DATE: 09/13/2019 Anticipating discharge on 09/13/2019 HISTORY OF PRESENT ILLNESS: She is followed by Dr. Yoandy Benedict. She presented with shortness of breath on 09/07/2019 and unfortunately, at the time of exam, patient was very drowsy. She did respond to tactile stimulation, verbal calling of her name, did open her eyes and would moan and groan and twice able to say 1 word answers, after she would fall right back to sleep. According to the emergency room at [place], was much more responsive, though at [place] prior to transfer, she was given some Ativan 1 mg IV and Percocet 10 mg and this probably contributed to her lethargy. She presented to the emergency room at [place] with complaints of UTI symptoms for a month and shortness of breath. Reported that she had pressures when she urinates and constipated. Denied any nausea, vomiting. Reporting intermittent fever, stated she did not use a thermometer at home. Patient has a history of COPD, admits she still smokes cigarettes. According to the ER note, she was on home oxygen as well. Looking back at her previous visits, she has a history of frequent urinary tract infections due to urinary retention. She does have a history of interstitial cystitis. She does have a history of chronic constipation and chronic opioid use with chronic pain syndrome secondary to scoliosis and multiple lower back surgeries and degenerative disk disease. She has been afebrile since her arrival and we admitted her to the floor. PAST MEDICAL HISTORY: 1. Urinary retention, frequent infection. 2. Interstitial cystitis. 3. Ulcerative colitis. 4. Pancreatic insufficiency. It looks like she has not been getting her Creon. 5. Severe anorexia. 6. COPD on home oxygen at 2 L per nasal cannula. 7. Chronic back pain secondary to scoliosis, multiple back surgeries. 8. Chronic opioid use with chronic constipation. 9. Anxiety and depression. 10. Osteoporosis. ADMISSION DIAGNOSES: 1. Chronic obstructive pulmonary disease exacerbation. She does wear oxygen at home, 2 L per nasal cannula. In the emergency room was reported to be short of breath. On questioning how long she has been short of breath, she said for several days. Unsure if she had a cough. She was afebrile. They put her on some Solu-Medrol and placed her on antibiotic coverage with Levaquin. 2. Encephalopathy, mainly lethargy and we suspect this was multifactorial, her hypercapnia and multiple medications at home including BuSpar, Flexeril, Neurontin, mirtazapine, and Percocet. She had leukocytosis, which is of uncertain etiology and acute on chronic hypercapnic, hypoxemic respiratory failure. She has a history of chronic opioid use and chronic constipation, a history of anxiety and depression. She had some hyperglycemia on presentation. She did, after 24 hours, seem to be more awake and she was able to eat. We started her back on her Creon. Her breathing, air exchange and gas exchange improved and she was able to tolerate physical therapy and able to ambulate. She does have lower back pain which is chronic and she is very weak, but cognitive status came back to baseline and she was awake and alert and she wanted to go to rehab, so we are trying to see if we can get her into rehab from here and she will continue her oxygen at 2 L per nasal cannula. DISCHARGE MEDICATIONS: Xanax 0.25 mg at bedtime, BuSpar 15 mg p.o. b.i.d., Flexeril 10 mg t.i.d., Neurontin 400 mg b.i.d. I think we can stop her Levaquin and she will have Percocet 1-1/2 tablets of a 5 mg q.6 hours p.r.n. pain. cc: Abel Turner MD
[2019-09-13 16:11] VITALS: BP 120/52
== END 2019-09-13 18:16 | DRG 189 ==
LOC: P.ED 23:30 → 2N 09-07 03:58 → SUATTDRO 09-07 03:58 → 3N 09-11 13:21
PROVIDERS: ATTEND Emergency Medicine